=== PATIENT | female | born 1960 | race Caucasian/White ===

== ENCOUNTER → 2017-12-21 10:04 | Outpatient (CLI) | payer OTHER, SELFPAY ==
[2017-12-21 10:39] LABS: Add Manual Diff / Slide Review NO; Basophils Percent Auto 0.7 % (0-2); Eosinophils Percent Auto 0.1 % (2-4); Hematocrit 37.1 % (36-46); Hemoglobin 12.4 g/dL (12.0-16.0); Lymphocytes Percent Auto 20.9 % (25-40); Mean Corpuscular HGB Conc 33.4 % (30-36); Mean Corpuscular Hemoglobin 28.2 PG (26-34); Mean Corpuscular Volume 84.5 fL (80-100); Monocytes Percent Auto 4.8 % (3-14); Neutrophils Absolute Auto 4700 /uL (3000-5900); Neutrophils Percent Auto 73.5 % (50-75); Platelet Count 233 X10^3/uL (150-400); Red Blood Cell Count 4.39 X10^6/uL (4.0-5.2); Red Cell Distribution Width 12.9 % (11.6-14.8); White Blood Cell Count 6.4 X10^3/uL (4.5-11.0)
[2017-12-21 11:00] LABS: Alanine Aminotransferase 25 IU/L (9-52); Albumin 3.9 g/dL (3.5-5.0); Albumin Globulin Ratio 1.5 (1.0-2.8); Alkaline Phosphatase 82 U/L (38-126); Aspartate Aminotransferase 21 IU/L (14-36); BUN Creatinine Ratio 17.1 (6-22); Bilirubin Total 0.2 mg/dL (0.2-1.3); Blood Urea Nitrogen 12 mg/dL (7-17); Calcium 8.7 mg/dL (8.4-10.2); Carbon Dioxide 26 mmol/L (22-32); Chloride 104 mmol/L (98-107); Cholesterol 134 mg/dL (140-199); Estimated Glomerular Filt Rate > 60.0 mL/min (>60); Globulin 2.6 g/dL (1.7-4.1); Glucose 99 mg/dL (70-100); HDL Cholesterol 49 mg/dL (40-60); HEMOLYSIS < 15 (0-50); LDL Cholesterol Calculated 47 mg/dL (<100); Potassium 4.3 mmol/L (3.4-5.1); Sodium 143 mmol/L (137-145); Total Protein 6.5 g/dL (6.3-8.2); Triglycerides 190 mg/dL (35-150)
[2017-12-21 11:47] LABS: TSH w/ Reflex to FT4 1.73 uIU/mL (0.47-4.68)
== END ==
PROVIDERS: Visit Provider Internal Medicine
DX: E78.5 Hyperlipidemia, unspecified (principal); E03.9 Hypothyroidism, unspecified
CPT/HCPCS: 36415; 80053; 80061; 84443; 85025

== ENCOUNTER → 2018-02-13 09:12 | Outpatient (CLI) | payer OTHER, SELFPAY ==
--- NOTE | 2018-02-13 | DI.MG.S_ITS ---
BILATERAL DIGITAL SCREENING MAMMOGRAM 3D/2D WITH CAD: 02/13/2018 CLINICAL: Routine screening. Comparison is made to exams dated: 12/23/2016 mammogram, 12/23/2015 mammogram, and 12/19/2014 mammogram - [facility]. There are scattered fibroglandular elements in both breasts. Current study was also evaluated with a Computer Aided Detection (CAD) system. No significant masses, calcifications, or other findings are seen in either breast. There has been no significant interval change. IMPRESSION: NEGATIVE There is no mammographic evidence of malignancy. A 1 year screening mammogram is recommended. NOTE: For mammograms, a report in lay terms will be sent to the patient. Approximately 15% of breast malignancies will not be visualized mammographically. In the management of a palpable breast mass, a negative mammogram must not discourage biopsy of a clinically suspicious lesion. Electronically Signed By: Meeta ann/loan:02/14/2018 12:51:36 letter sent: Normal Exam ACR BI-RADS Category 1: Negative 3341F
== END ==
PROVIDERS: PCP Family Medicine; Visit Provider Family Medicine
DX: Z12.31 Encounter for screening mammogram for malignant neoplasm of breast (principal)
CPT/HCPCS: 77063; 77067

== ENCOUNTER → 2018-04-13 11:35 | Outpatient (CLI) | payer OTHER, SELFPAY ==
--- NOTE | 2018-04-13 11:39 | DI.RAD.S_ITS ---
PROCEDURE: XR LUMBAR SPINE 2-3V INDICATIONS: Back and right hip pain TECHNIQUE: 3 views of the lumbar spine were acquired. COMPARISON: None. FINDINGS: Bones: 5 cur-[id number]-[id number] vertebrae are present. There is normal bony alignment. No acute vertebral body compression fractures. No suspicious bony lesions. Multilevel degenerative changes seen in the mid and lower lumbar spine and thoracolumbar junction. Findings are most pronounced at L4-5 and L5-S1 with right worse than left lower lumbar facet arthropathy. Soft tissues: Cholecystectomy clips are noted in the right upper abdomen. Overlying bowel gas pattern is normal. No suspicious soft tissue calcifications. IMPRESSION: Multilevel lumbar spondylosis most pronounced in the mid and lower lumbar spine with right greater than left facet arthropathy. Dictated by: Dave York M.D. on 04/13/2018 at 12:22 Approved by: Dave York M.D. on 04/13/2018 at 12:24
--- NOTE | 2018-04-13 11:39 | DI.RAD.S_ITS ---
PROCEDURE: XR HIP W PEL IF DONE RT 2V INDICATIONS: Back and right hip pain TECHNIQUE: 2 views of the hip were acquired. COMPARISON: None. FINDINGS: Bones: No fractures or dislocations. No suspicious bony lesions. The visualized pelvic ring appears intact. Soft tissues: No suspicious soft tissue calcifications or masses. IMPRESSION: Right hip without radiographic abnormalities. Dictated by: Dave York M.D. on 04/13/2018 at 12:21 Approved by: Dave York M.D. on 04/13/2018 at 12:21
== END ==
PROVIDERS: Family Provider Student in an Organized Health Care Education/Training Program; PCP Student in an Organized Health Care Education/Training Program; Visit Provider Student in an Organized Health Care Education/Training Program
DX: M54.5 Low back pain (principal); M25.551 Pain in right hip; M47.816 Spondylosis without myelopathy or radiculopathy, lumbar region; M47.817 Spondylosis without myelopathy or radiculopathy, lumbosacral region; M79.7 Fibromyalgia
CPT/HCPCS: 72100; 73502

== ENCOUNTER → 2018-08-28 11:16 | Outpatient (CLI) | payer OTHER, SELFPAY ==
--- NOTE | 2018-08-28 11:17 | DI.MRI.S_ITS ---
PROCEDURE: MR KNEE LT WO CON INDICATIONS: Left knee pain; possible torn meniscus TECHNIQUE: Noncontrast sagittal PD fast spin echo and T2 fast spin echo with fat saturation, sagittal 3-D FLASH with fat saturation; coronal T1 spin echo and PD fast spin echo with fat saturation, and axial PD fast spin echo with fat saturation through the knee. COMPARISON: None. FINDINGS: Image quality: Excellent. Menisci: Lateral meniscus appears intact. Blunted appearance of the free margin of the medial meniscal body for example image 18 series 11 Cruciate ligaments: The anterior and posterior cruciate ligaments appear intact. Medial structures: The medial collateral ligament appears intact. However, there is adjacent soft tissue edema raising the possibility of low-grade sprain. The posterior oblique ligament, semimembranosus tendon insertions, oblique popliteal ligament, and meniscocapsular junction appear intact. Visualized portions of the pes anserinus tendons appear normal. No abnormal bursal fluid. Lateral structures: The lateral collateral ligament, long and short heads of the biceps femoris tendon appear intact. The popliteus tendon appears normal; the popliteofibular ligament appears intact. The posterosuperior and anteroinferior popliteomeniscal fascicles appear intact. The arcuate and fabellofibular ligaments appear intact, on either side of the lateral inferior geniculate artery. Iliotibial band appears normal. Anterior structures: Prepatellar and superficial infrapatellar subcutaneous edema/fluid. The quadriceps and patellar tendons appear intact. Patellar alignment is normal. No femoral trochlear dysplasia or ventral trochlear prominence. No edema in the infrapatellar fat pad. Bones and cartilage: No focal marrow contusion or discrete low signal fracture line. Within the medial compartment, diffuse partial-thickness loss of the femoral and tibial articular cartilage. Within the lateral compartment, no focal articular cartilage defect. Within the patellofemoral compartment, no focal articular cartilage defect Joint space: Small joint effusion. Gao's cyst, measuring approximately 6 cm in the cephalocaudad dimension, and may be ruptured with adjacent infiltrative free fluid. IMPRESSION: Blunting of the medial meniscal body free margin. Possible low-grade sprain of the medial collateral ligament. Degenerative joint disease, most pronounced involving the medial compartment. Partially ruptured Gao cyst. Prepatellar and superficial infrapatellar subcutaneous edema/fluid. Dictated by: Rudy Escobar M.D. on 08/28/2018 at 13:54 Approved by: Rudy Escobar M.D. on 08/28/2018 at 14:00
== END ==
PROVIDERS: PCP Student in an Organized Health Care Education/Training Program; Visit Provider Student in an Organized Health Care Education/Training Program
DX: M25.562 Pain in left knee (principal); M17.12 Unilateral primary osteoarthritis, left knee; M66.0 Rupture of popliteal cyst; R60.0 Localized edema
CPT/HCPCS: 73721

== ENCOUNTER → 2019-02-15 10:43 | Outpatient (CLI) | payer OTHER, SELFPAY ==
[2019-02-15 13:21] LABS: TSH w/ Reflex to FT4 1.65 uIU/mL (0.47-4.68)
== END ==
PROVIDERS: PCP Student in an Organized Health Care Education/Training Program; Visit Provider Student in an Organized Health Care Education/Training Program
DX: E03.9 Hypothyroidism, unspecified (principal)
CPT/HCPCS: 36415; 84443

== ENCOUNTER → 2019-02-19 09:12 | Outpatient (CLI) | payer OTHER, SELFPAY ==
--- NOTE | 2019-02-19 09:13 | DI.MG.S_ITS ---
BILATERAL DIGITAL SCREENING MAMMOGRAM 3D/2D WITH CAD: 02/19/2019 CLINICAL: Routine screening. Comparison is made to exams dated: 02/13/2018 mammogram, 12/23/2016 mammogram, 12/23/2015 mammogram, 12/19/2014 mammogram, and 10/31/2013 mammogram - [facility]. There are scattered fibroglandular elements in both breasts. Current study was also evaluated with a Computer Aided Detection (CAD) system. No significant masses, calcifications, or other findings are seen in either breast. There has been no significant interval change. IMPRESSION: NEGATIVE There is no mammographic evidence of malignancy. A 1 year screening mammogram is recommended. This exam was interpreted at Station ID: [id number]. NOTE: For mammograms, a report in lay terms will be sent to the patient. Approximately 15% of breast malignancies will not be visualized mammographically. In the management of a palpable breast mass, a negative mammogram must not discourage biopsy of a clinically suspicious lesion. Electronically Signed By: Mauricio herrera/loan:02/19/2019 10:43:13 letter sent: Normal Exam ACR BI-RADS Category 1: Negative 3341F
== END ==
PROVIDERS: PCP Student in an Organized Health Care Education/Training Program; Visit Provider Student in an Organized Health Care Education/Training Program
DX: Z12.31 Encounter for screening mammogram for malignant neoplasm of breast (principal)
CPT/HCPCS: 77063; 77067

== ENCOUNTER → 2020-02-26 16:14 | Outpatient (CLI) | payer OTHER, SELFPAY ==
--- NOTE | 2020-02-26 | DI.MG.S_ITS ---
BILATERAL DIGITAL SCREENING MAMMOGRAM 3D/2D WITH CAD: 02/26/2020 CLINICAL: Routine screening. Comparison is made to exams dated: 02/19/2019 mammogram, 02/13/2018 mammogram, and 12/23/2016 mammogram - [facility]. There are scattered fibroglandular elements in both breasts. Current study was also evaluated with a Computer Aided Detection (CAD) system. No significant masses, calcifications, or other findings are seen in either breast. There has been no significant interval change. IMPRESSION: NEGATIVE There is no mammographic evidence of malignancy. A 1 year screening mammogram is recommended. This exam was interpreted at Station ID: [id number]. NOTE: For mammograms, a report in lay terms will be sent to the patient. Approximately 15% of breast malignancies will not be visualized mammographically. In the management of a palpable breast mass, a negative mammogram must not discourage biopsy of a clinically suspicious lesion. Electronically Signed By: Meeta ann/loan:03/03/2020 14:19:36 letter sent: Normal Exam ACR BI-RADS Category 1: Negative 3341F
== END ==
PROVIDERS: PCP Student in an Organized Health Care Education/Training Program; Referring Provider Student in an Organized Health Care Education/Training Program; Visit Provider Student in an Organized Health Care Education/Training Program
DX: Z12.31 Encounter for screening mammogram for malignant neoplasm of breast (principal)
CPT/HCPCS: 77063; 77067

== ENCOUNTER → 2020-03-03 07:02 | Outpatient (CLI) | payer OTHER, SELFPAY ==
--- NOTE | 2020-03-03 07:04 | DI.US.S_ITS ---
PROCEDURE: US ABDOMEN LIMITED INDICATIONS: RIGHT UPPER QUADRANT PAIN TECHNIQUE: Real-time focused scanning was performed of the abdomen, with image documentation. COMPARISON: [facility], US, ABDOMEN COMPLETE, 09/24/2010, 8:40. FINDINGS: The liver is normal in size and demonstrates no focal lesions. The gallbladder has been removed. There is no biliary dilatation, the common bile duct measures 6 mm. No significant pancreatic abnormality is seen on these images. IMPRESSION: Status post cholecystectomy, without biliary dilatation. Dictated by: Juan Jose Mcbride M.D. on 03/03/2020 at 12:11 Approved by: Juan Jose Mcbride M.D. on 03/03/2020 at 12:12
== END ==
PROVIDERS: PCP Student in an Organized Health Care Education/Training Program; Referring Provider Student in an Organized Health Care Education/Training Program; Visit Provider Student in an Organized Health Care Education/Training Program
DX: R10.11 Right upper quadrant pain (principal); Z90.49 Acquired absence of other specified parts of digestive tract
CPT/HCPCS: 76705

== ENCOUNTER → 2020-03-09 06:51 | Outpatient (CLI) | payer OTHER, SELFPAY ==
[2020-03-09 09:01] LABS: BUN Creatinine Ratio 18.3 (6-22); Blood Urea Nitrogen 11 mg/dL (7-17); Calcium 8.6 mg/dL (8.4-10.2); Carbon Dioxide 30 mmol/L (22-32); Chloride 105 mmol/L (98-107); Estimated Glomerular Filt Rate > 60.0 mL/min (>60); Glucose 97 mg/dL (70-100); HEMOLYSIS < 15 (0-50); Potassium 4.3 mmol/L (3.4-5.1); Sodium 136 mmol/L (137-145)
== END ==
PROVIDERS: PCP Student in an Organized Health Care Education/Training Program; Referring Provider Student in an Organized Health Care Education/Training Program; Visit Provider Nurse Practitioner
DX: R10.11 Right upper quadrant pain (principal)
CPT/HCPCS: 36415; 80048

== ENCOUNTER → 2020-03-10 07:50 | Outpatient (CLI) | payer OTHER, SELFPAY ==
--- NOTE | 2020-03-10 07:52 | DI.CT.S_ITS ---
PROCEDURE: CT ABDOMEN W CON INDICATIONS: Abdominal pain TECHNIQUE: After the administration of oral and intravenous contrast, 5 mm thick sections acquired from the diaphragms to the iliac crests. 5 mm thick coronal and sagittal reformats were acquired. For radiation dose reduction, the following was used: automated exposure control, adjustment of mA and/or kV according to patient size. COMPARISON: [facility], CT, ABDOMEN/PELVIS WITH CONTRAST, 10/18/2012, 7:52. FINDINGS: Image quality: Excellent. Lung bases: Lung bases are clear. Heart size is normal. Solid organs: Liver is normal in size and enhancement. Gallbladder is surgically absent.. Biliary system is non dilated. Pancreas enhances normally. Spleen is normal in size and enhancement. No adrenal nodules. There is a small homogeneously enhancing exophytic mass off the anterior medial aspect of the middle pole of the left kidney, measuring 1.8 cm. This is very slowly growing. Previously, there was a 1.3 cm cystic lesion in this location. There is no hydronephrosis. The right kidney is unremarkable. Peritoneum and bowel: Contrast enhanced bowel loops appear normal in caliber. No free fluid or air. Nodes and vessels: No retroperitoneal or mesenteric adenopathy by size criteria. Aorta and inferior vena cava are normal in size. Bones: No suspicious bony lesions. No vertebral body compression fractures. Miscellaneous: No ventral hernias. IMPRESSION: 1. Incidental identification of a probable 1.8 cm renal cell carcinoma involving the left kidney. 2. No evidence of metastatic disease. 3. No evidence of acute abdominal process. Recommend urological consultation. Comment: Critical finding to be communicated to JENNIFER Love's office. Dictated by: Vaibhav Dick M.D. on 03/10/2020 at 10:00 Approved by: Vaibhav Dick M.D. on 03/10/2020 at 10:14
== END ==
PROVIDERS: PCP Student in an Organized Health Care Education/Training Program; Referring Provider Nurse Practitioner; Visit Provider Nurse Practitioner
DX: R10.11 Right upper quadrant pain (principal); N28.89 Other specified disorders of kidney and ureter; Z90.49 Acquired absence of other specified parts of digestive tract
CPT/HCPCS: 74160; Q9967

== ENCOUNTER → 2020-03-26 06:44 | Outpatient (CLI) | payer OTHER, SELFPAY ==
--- NOTE | 2020-03-26 09:49 | DI.CT.S_ITS ---
PROCEDURE: CT ABDOMEN WO/W CON INDICATIONS: RENAL MASS TECHNIQUE: Optional 5 mm thick noncontrast images acquired from the diaphragm to the iliac crests. After the administration of intravenous contrast, 5 mm thick images again acquired from the diaphragm to the iliac crests in the arterial and urographic phases. 5 mm thick coronal and sagittal reformats were then acquired. For radiation dose reduction, the following was used: automated exposure control, adjustment of mA and/or kV according to patient size. COMPARISON: [facility], CT, ABDOMEN/PELVIS WITH CONTRAST, 10/18/2012, 7:52. [facility], CT, CT ABDOMEN W CON, 03/10/2020, 8:36. FINDINGS: Image quality: Lung bases: Lung bases are clear. Heart size is normal. Genitourinary: A partially exophytic mass arises from the medial aspect of the left renal midpole and measures about 2.5 x 1.6 x 1.7 cm. It demonstrates homogeneous enhancement and washout, differentiating at from parenchyma. Kidneys otherwise are normal without stones or hydronephrosis. No adjacent retroperitoneal lymph nodes or filling defects in the left renal vasculature. The mass is in close proximity to the main left renal artery. Other solid organs: Liver is normal in size and enhancement. Gallbladder is surgically absent . Biliary system is non dilated. Pancreas enhances normally. Spleen is normal in size and enhancement. No adrenal nodules. Peritoneum and bowel: Unenhanced bowel loops are normal in wall thickness and caliber. No free fluid or air. Nodes and vessels: No retroperitoneal or mesenteric adenopathy by size criteria. Aorta and inferior vena cava are normal in caliber. Bones: No suspicious bony lesions. Severe degenerative disc and endplate changes at L4-5. No vertebral body compression fractures. Miscellaneous: Tiny fat containing umbilical hernia. IMPRESSION: 1. 2.5 cm Solid renal mass, probable renal cell carcinoma versus oncocytoma arises from the medial left kidney. Partial nephrectomy versus ablation is recommended. Note given to the close proximity of the left renal artery. 2. No adenopathy. Dictated by: Sophia Babb M.D. on 03/26/2020 at 9:55 Approved by: Sophia Babb M.D. on 03/26/2020 at 10:11
== END ==
PROVIDERS: PCP Student in an Organized Health Care Education/Training Program; Referring Provider Student in an Organized Health Care Education/Training Program; Visit Provider Student in an Organized Health Care Education/Training Program
DX: C64.2 Malignant neoplasm of left kidney, except renal pelvis (principal); N28.89 Other specified disorders of kidney and ureter
CPT/HCPCS: 74170; Q9967

== ENCOUNTER → 2020-05-14 09:55 | Outpatient (CLI) | payer OTHER, SELFPAY ==
--- NOTE | 2020-05-14 09:57 | DI.RAD.S_ITS ---
PROCEDURE: XR HIP W PEL IF DONE RT 2V INDICATIONS: Right hip pain w/o injury TECHNIQUE: AP pelvis with lateral view(s) of the right hip(s). COMPARISON: [facility], , XR HIP W PEL IF DONE RT 2V, 04/13/2018, 11:41. FINDINGS: Bones: No fractures or dislocations. Mild right hip degenerative arthritis. Pelvic ring appears intact. No suspicious bony lesions. Soft tissues: The visualized bowel gas pattern is normal. No suspicious soft tissue calcifications. IMPRESSION: Mild right hip degenerative arthritis. No evidence acute bony abnormality of the pelvis and right hip. If clinical suspicion and/or symptoms persist, further assessment with repeat plain films, or advanced imaging (e.g., CT, MRI, or bone scan) may be helpful for further assessment. Dictated by: Vaibhav Dick M.D. on 05/14/2020 at 11:27 Approved by: Vaibhav iDck M.D. on 05/14/2020 at 11:28
== END ==
PROVIDERS: PCP Student in an Organized Health Care Education/Training Program; Referring Provider Student in an Organized Health Care Education/Training Program; Visit Provider Student in an Organized Health Care Education/Training Program
DX: M16.11 Unilateral primary osteoarthritis, right hip (principal)
CPT/HCPCS: 73502

== ENCOUNTER → 2020-05-26 09:12 | Outpatient (CLI) | payer OTHER, SELFPAY ==
[2020-05-26 10:26] LABS: Alanine Aminotransferase 13 IU/L (<35); Albumin 3.7 g/dL (3.5-5.0); Albumin Globulin Ratio 1.5 (1.0-2.8); Alkaline Phosphatase 96 U/L (38-126); Amylase 37 U/L (30-110); Aspartate Aminotransferase 13 IU/L (14-36); Bilirubin Total 0.1 mg/dL (0.2-1.3); Globulin 2.5 g/dL (1.7-4.1); HEMOLYSIS < 15 (0-50); Lipase 121 U/L (23-300); Total Protein 6.2 g/dL (6.3-8.2)
== END ==
PROVIDERS: PCP Student in an Organized Health Care Education/Training Program; Referring Provider Student in an Organized Health Care Education/Training Program; Visit Provider Student in an Organized Health Care Education/Training Program
DX: R10.11 Right upper quadrant pain (principal)
CPT/HCPCS: 36415; 80076; 82150; 83690

== ENCOUNTER → 2020-06-05 11:28 | Outpatient (CLI) | payer OTHER, SELFPAY ==
--- NOTE | 2020-06-05 | DI.RAD.S_ITS ---
PROCEDURE: XR CHEST 2V INDICATIONS: renal mass TECHNIQUE: 2 views of the chest were acquired. COMPARISON: [facility], CR, XR HIP W PEL IF DONE RT 2V, 05/14/2020, 10:07. [facility], CT, CT ABDOMEN W CON, 03/10/2020, 8:36. [facility], CT, CT ABDOMEN WO/W CON, 03/26/2020, 6:55. [facility], CR, CHEST 1 VIEW, 09/05/2012, 15:30. FINDINGS: Surgical changes and devices: None. Lungs and pleura: Lungs are clear. No pleural effusions or pneumothorax. Mediastinum: Mediastinal contours are normal. Heart size is normal. Bones and chest wall: No suspicious bony abnormalities. Soft tissues appear unremarkable. IMPRESSION: No abnormality is seen, no sign of metastatic disease. Dictated by: Adan Antonio M.D. on 06/05/2020 at 12:50 Approved by: Adan Antonio M.D. on 06/05/2020 at 12:52
[2020-06-05 12:14] LABS: Add Manual Diff / Slide Review NO; Basophils Absolute Auto 100 /uL (0-100); Basophils Percent Auto 0.9 % (0-2); Eosinophils Absolute Auto 0 /uL (0-450); Eosinophils Percent Auto 0.1 % (2-4); Hematocrit 36.7 % (36-46); Hemoglobin 12.1 g/dL (12.0-16.0); Lymphocytes Absolute Auto 1700 /uL (1100-4500); Lymphocytes Percent Auto 22.2 % (25-40); Mean Corpuscular HGB Conc 33.1 % (30-36); Mean Corpuscular Hemoglobin 27.1 PG (26-34); Monocytes Absolute Auto 400 /uL (0-900); Monocytes Percent Auto 4.8 % (3-14); Neutrophils Absolute Auto 5500 /uL (1500-7000); Platelet Count 236 X10^3/uL (150-400); Red Blood Cell Count 4.47 X10^6/uL (4.0-5.2); Red Cell Distribution Width 13.8 % (11.6-14.8); White Blood Cell Count 7.7 X10^3/uL (4.5-11.0)
[2020-06-05 12:30] LABS: Prothrombin Time 11.7 SECONDS (10.1-12.7)
[2020-06-05 12:33] LABS: PTT Partial Thromboplastin Tim 31 SECONDS (26.4-36.2)
[2020-06-05 12:42] LABS: Alanine Aminotransferase 16 IU/L (<35); Albumin 3.9 g/dL (3.5-5.0); Albumin Globulin Ratio 1.6 (1.0-2.8); Alkaline Phosphatase 99 U/L (38-126); Aspartate Aminotransferase 17 IU/L (14-36); BUN Creatinine Ratio 22.2 (6-22); Blood Urea Nitrogen 14 mg/dL (7-17); Calcium 9.1 mg/dL (8.4-10.2); Carbon Dioxide 26 mmol/L (22-32); Chloride 105 mmol/L (98-107); Estimated Glomerular Filt Rate > 60.0 mL/min (>60); Globulin 2.4 g/dL (1.7-4.1); Glucose 103 mg/dL (70-100); HEMOLYSIS < 15 (0-50); Potassium 4.4 mmol/L (3.4-5.1); Sodium 137 mmol/L (137-145); Total Protein 6.3 g/dL (6.3-8.2)
[2020-06-05 12:46] LABS: Bilirubin Total < 0.1 mg/dL (0.2-1.3)
== END ==
PROVIDERS: PCP Student in an Organized Health Care Education/Training Program; Referring Provider Urology; Visit Provider Urology
DX: Z01.818 Encounter for other preprocedural examination (principal); N28.89 Other specified disorders of kidney and ureter
CPT/HCPCS: 36415; 71046; 80053; 85025; 85610; 85730; 93005

== ENCOUNTER → 2020-06-09 09:13 | Outpatient (CLI) | payer OTHER, SELFPAY ==
--- NOTE | 2020-06-09 | DI.NM.S_ITS ---
PROCEDURE: NM RENAL FLOW AND FUNCTION RADIOPHARMACEUTICAL: 10.4 mCi Tc-99m MAG3 IV. INDICATIONS: OTHER SPECIFIED DISORDER OF KIDNEY AND URETER TECHNIQUE: The patient was hydrated orally before the examination was begun. After intravenous administration of Tc-99m MAG3, posterior abdominal radionuclide angiogram and sequential (1 minute per frame) renal images were obtained. A time-activity curve for each kidney was generated and analyzed. COMPARISON: [facility], US, US ABDOMEN LIMITED, 03/03/2020, 7:16. [facility], CT, CT ABDOMEN WO/W CON, 03/26/2020, 6:55. FINDINGS: Perfusion: There is normal vascular perfusion to both kidneys. Morphology: Kidneys are normal in shape and size. There are no central photopenic regions to suggest dilated collecting systems. The ureters and bladder are visualized, and appear normal in morphology. Function: Both kidneys demonstrate normal cortical tracer uptake, with jfvo-ju-idlg activity ranging from 3 to 5 minutes. The right kidney contributes 58% of total renal function. The left kidney contributes 42 % of total renal function. There is normal tracer excretion by both kidneys, and subsequent clearance of activity from both renal collecting systems. IMPRESSION: 1. Normal radionuclide renogram. 2. Right kidney contributes 58% of total renal function and left kidney contributes 42% of total renal function. Dictated by: Porfirio Doyle M.D. on 06/09/2020 at 12:31 Approved by: Porfirio Doyle M.D. on 06/09/2020 at 12:52
== END ==
PROVIDERS: PCP Student in an Organized Health Care Education/Training Program; Referring Provider Urology; Visit Provider Urology
DX: N28.89 Other specified disorders of kidney and ureter (principal)
CPT/HCPCS: 78708; A9562

== ENCOUNTER → 2020-06-22 09:12 | Outpatient (CLI) | payer OTHER, SELFPAY ==
[2020-06-22 12:09] LABS: COVID19 -Nasal RAPID Negative (Negative)
== END ==
PROVIDERS: PCP Student in an Organized Health Care Education/Training Program; Visit Provider Physician Assistant
DX: Z20.822 Contact with and (suspected) exposure to COVID-19 (principal)
CPT/HCPCS: 87635

== ENCOUNTER → 2020-09-02 07:39 | Outpatient (CLI) | payer OTHER, SELFPAY ==
--- NOTE | 2020-09-02 | DI.NM.S_ITS ---
PROCEDURE: GA RENAL FLOW AND FUNCTION RADIOPHARMACEUTICAL: 10.5 mCi Tc-99m MAG3 IV. INDICATIONS: Other specified disorders of kidney and ureter TECHNIQUE: The patient was hydrated orally before the examination was begun. After intravenous administration of Tc-99m MAG3, posterior abdominal radionuclide angiogram and sequential (1 minute per frame) renal images were obtained. A time-activity curve for each kidney was generated and analyzed. COMPARISON: [place], [place], [place] RENAL FLOW AND FUNCTION, 06/09/2020, 9:36. FINDINGS: Perfusion: There is normal vascular perfusion to both kidneys. Morphology: Kidneys are normal in shape and size. There are no central photopenic regions to suggest dilated collecting systems. The ureters and bladder are visualized, and appear normal in morphology. Function: Both kidneys demonstrate normal cortical tracer uptake, with aopo-qu-zrbe activity ranging from 3 to 5 minutes. The right kidney contributes 55 % of total renal function. The left kidney contributes 45 % of total renal function. This is compared to 58% and 42% on prior exam. There is normal tracer excretion by both kidneys, and subsequent clearance of activity from both renal collecting systems. IMPRESSION: 1. Normal radionuclide renogram. 2. Right kidney contributes 55% of total renal function and left kidney contributes 45% of total renal function. Dictated by: Gail Andrews M.D. on 09/02/2020 at 16:54 Approved by: Gail Andrews M.D. on 09/02/2020 at 16:56
--- NOTE | 2020-09-02 07:41 | DI.RAD.S_ITS ---
PROCEDURE: XR LUMBAR SPINE MIN 4V INDICATIONS: lumbar hnp TECHNIQUE: 5 views of the lumbar spine were acquired, including bilateral oblique views. COMPARISON: [facility], CT, CT ABDOMEN WO/W CON, 03/26/2020, 6:55. CT, ABDOMEN/PELVIS WITH CONTRAST, 10/18/2012, 7:52. [facility], CR, XR LUMBAR SPINE 2-3V, 04/13/2018, 11:41. FINDINGS: Bones: 5 nonrib-bearing vertebrae are present. Minimal scoliosis. L4-L5 and L5-S1 facet joint hypertrophy. There is mild bony neural foraminal narrowing bilaterally at these levels. There is intervertebral body height loss at L4-L5. No vertebral body compression fractures. No suspicious bony lesions. Soft tissues: Overlying bowel gas pattern is normal. No suspicious soft tissue calcifications. Cholecystectomy clips. Oblique images: No pars defects. IMPRESSION: Intervertebral body height loss at L4-L5 similar to the prior exams. Ybqp-on-lmbjqugw degenerative change. L4-L5 and L5-S1 bony neural foraminal narrowing. Dictated by: Mauricio Lizama M.D. on 09/02/2020 at 9:02 Approved by: Mauricio Lizama M.D. on 09/02/2020 at 9:06
== END ==
PROVIDERS: PCP Student in an Organized Health Care Education/Training Program; Referring Provider Urology; Visit Provider Urology
DX: N28.89 Other specified disorders of kidney and ureter (principal); M54.5 Low back pain
CPT/HCPCS: 72110; 78708; A9562

== ENCOUNTER → 2020-09-08 15:34 | Outpatient (CLI) | payer OTHER, SELFPAY ==
[2020-09-08 15:58] LABS: COVID19 -Nasal RAPID Negative (Negative)
== END ==
PROVIDERS: PCP Student in an Organized Health Care Education/Training Program; Visit Provider Obstetrics & Gynecology
DX: Z01.812 Encounter for preprocedural laboratory examination (principal); Z20.822 Contact with and (suspected) exposure to COVID-19
CPT/HCPCS: 87635

== ENCOUNTER 2020-09-10 08:06 | Observation (INO) | payer OTHER, SELFPAY ==
[2020-09-08 08:12] VITALS: BMI 35.9
[2020-09-10] VITALS (13 sets, daily range): BP systolic 95–154; BP diastolic 46–83; PULSE 62–80; RESP 12–18; TEMP 36–36.7; O2SAT 96–100; BMI 34.4
[2020-09-10] MEDS: LACTATED RINGERS 1,000 ML 100 ML IV ×4 (07:52→23:39)
--- NOTE | 2020-09-10 08:52 | PM.PREOP ---
Pre-operative Note COVID-19 COVID-19 status: Negative Result date/Date tested (Pos, Neg/Pending): 09/08/20 Interval Note History & Physical reviewed/Exam performed by Physician: Yes Changes to H&P: No H&P completed within 30 days and has changed as indicated here:: 09/08/20
[2020-09-10] MEDS: CEFAZOLIN 1 GM VIAL 2 GM IV (09:25)
--- NOTE | 2020-09-10 09:54 | SUR.OPER ---
Lithotomy on padded OR bed, head on pillow, arms secured on padded arm boards at <90 degrees abduction. Legs secured in padded yellow fins stirrups.
[2020-09-10] MEDS: BUPIVACAINE 0.25% W/ EPI (PF) 10 ML VIAL 60 ML INJ (10:02)
--- NOTE | 2020-09-10 11:25 | P.OP_ITS ---
Operative Date/Time/Diagnoses Date of procedure: 09/10/20 Time of procedure: 11:25 Pre-op diagnosis: Symptomatic cystocele and rectocele Stress urinary incontinence Post-op diagnosis: same Procedure & Clinicians Procedure: Procedures Operation Date: 09/10/20 08:15 Actual Procedures Side Surgeon p Anterior/Posterior repair, Isa Young MD s TVT w. cystoscopy Isa Young MD Indications: Symptomatic cystocele and rectocele Stress urinary incontinence Surgeon: Isa Young [facility] House Supervisor: Montse Aparicio Anesthesia Type: General and Local Operative Notes Findings: Third-degree rectocele Second-degree cystocele Increased urethrovesical angle with Valsalva Closure Type: primary Specimen(s): none Applied: catheter (To continuous drainage) Estimated blood loss (mL): 75 Blood products transfused: none Procedure in detail: The patient was taken to the operating room where she was placed in the dorsal supine position. After adequate general endotracheal anesthesia was achieved, she was placed in the dorsal lithotomy position, and prepped and draped in the usual sterile fashion. A timeout was performed. Allis clamps were placed at the superior and inferior edge of the cystocele. 6 mL of half percent Marcaine with epinephrine were injected and an incision was made with a #10 blade between the Allis clamps. The mucosa was undermined using the Metzenbaum scissors and wide Allis clamps were placed at the edges of the mucosa. The mucosa was dissected off the underlying fascia using an open moistened Ray-Meme and a #10 blade. The fascia was reapproximated with 0 Vicryl with a series of horizontal mattress sutures. The excess vaginal mucosa was excised. The mucosa was closed using simple interrupted sutures with 2-0 Vicryl including the underlying fascia to close the space. The weighted speculum was removed from the vagina. Allis clamps were placed at the mucocutaneous junction at the introitus. 6 mL of half percent Marcaine with epinephrine were injected. An incision was made with a #10 blade between the 2 Allis clamps, and a triangular piece of skin and underlying subcutaneous tissue was removed. Allis clamps were placed in the midline of the rectocele. 10 mL of half percent Marcaine with epinephrine were injected submucosally. The mucosa was undermined using the Metzenbaum scissors and the mucosa incised in the midline, moving the wide Allis clamps to the mucosal edges. The underlying fascia was dissected off of th mucosa using an open moistened Ray-Meme and a #10 blade. The fascia was reapproximated using 0 Vicryl with a series of horizontal mattress sutures. The excess vaginal mucosa was excised. The mucosa was closed using a series of simple interrupted sutures with 2-0 Vicryl including the underlying fascia to close the space. On the perineum 0 Vicryl was used to reapproximate the levator muscle. The subcutaneous layer was closed with 2-0 Vicryl. The skin was closed with 3-0 chromic in a subcuticular fashion. Hemostasis was achieved. The bladder was empty. 100 mL of the dilute quarter percent Marcaine with epinephrine were placed into the space of Retzius behind the pubic symphysis. A weighted speculum was placed into the vagina. 2 Allis clamps were placed lateral to the urethral meatus approximately 1 cm distal. 3 mL of a dilute quarter percent Marcaine were placed submucosally. A 1 cm incision was made 1 cm away from the urethral meatus. This was dissected out laterally with the Metzenbaum scissors. A rigid catheter was placed into the bladder. With the bladder neck retracted away from the patient's right side 10 mL of the dilute local were placed aiming towards the patient's right shoulder up behind the pubic symphysis. This was repeated on the patient's left side, with the bladder neck retracted away from the patient's left side. After the TVT was loaded and with the bladder neck retracted away from the patient's right side the TVT was directed towards the patient's shoulder on the right side, perforating the urogenital diaphragm, and then directed up behind the pubic symphysis and the introducer came out approximately 2 cm lateral to the midline on the left side. A small 3 mm enrique in the skin was made and the introducer was brought up and grasped with a [place]. This was repeated on the patient's left side with the bladder neck retracted away from the patient's left side. The rigid portion of the catheter was removed. The bladder was filled with 240 mL of sterile saline. A cystoscopy was performed and there was no TVT were introducer visible in the bladder. The to introducers were pulled up with care not to over tighten the TVT. The patient was made to cough and initially there was a spurt of fluid from the urethral meatus. The TVT was pulled slightly. A second cough produced no leakage. The TVT was cut below the skin edge, with care not to over tighten. Ragsdale scissors were placed between the TVT and urethra to prevent tension. The mucosa was closed with 3-0 Vicryl with a running interlocking suture. Hemostasis was achieved. The TVT incisions were closed with Dermabond glue. A Betadine moistened vaginal packing was placed into the vagina. The catheter was hooked to a Burrell bag. Sponge, lap, and instrument count were correct x-2. The patient tolerated the procedure well, was taken to PACU in stable condition. Complications: none Post-operative Condition: stable Disposition: PACU Plan for aftercare: To acute care after recovery
[2020-09-10] MEDS: OXYCODONE IR 5 MG TABLET PO (13:05)
[2020-09-10] MEDS: DULOXETINE 30 MG CAPSULE 60 MG PO (13:05)
[2020-09-10] MEDS: NAPROXEN 250 MG TABLET 500 MG PO (17:09)
[2020-09-10] MEDS: PANTOPRAZOLE DR 40 MG TABLET PO (20:05)
[2020-09-10] MEDS: ATORVASTATIN 20 MG TABLET 40 MG PO (20:05)
[2020-09-10] MEDS: METOPROLOL ER 50 MG TABLET 100 MG PO (20:05)
[2020-09-10] MEDS: DOCUSATE 250 MG CAPSULE PO (20:05)
[2020-09-10] MEDS: carBAMazepine 200 MG TABLET PO (20:05)
[2020-09-10] MEDS: ACETAMINOPHEN 325 MG TABLET 650 MG PO (20:10)
--- NOTE | 2020-09-11 00:32 | PC.NURSE ---
Addendum entered by Jenny Grijalva R.N. 09/11/20 06:55: Patient voided 250cc w/PVR of 70cc Addendum entered by Jenny Grijalva R.N. 09/11/20 06:02: packing and catheter d'cd at 0600. Moderate amount brown/red drainage on peripads; changed. Instructed in sx/prevention of UTI Original Note: patient is alert and oriented but drowsy; offers minimal conversation. Breath sounds CTA with RA sat of 97%. HRR. Denies nausea. BT present and abdomen is soft; states she is passing flatus. Indwelling catheter is patent; urine is clear yellow. Able to move self in bed and evening RN reports patient up ambulating in halls without problem. Lap sites intact. Denies pain. Refusing SCD's so reminded to ankle wave. Fall risk score is low.
[2020-09-11 03:48] VITALS: BP 143/74; PULSE 63; RESP 16; TEMP 36.7; O2SAT 95
[2020-09-11] MEDS: LEVOTHYROXINE 125 MCG TABLET PO (05:30)
[2020-09-11 05:50] LABS: Add Manual Diff / Slide Review NO; Basophils Absolute Auto 100 /uL (0-100); Basophils Percent Auto 0.6 % (0-2); Eosinophils Absolute Auto 0 /uL (0-450); Eosinophils Percent Auto 0.1 % (2-4); Hematocrit 34.5 % (36-46); Hemoglobin 11.3 g/dL (12.0-16.0); Lymphocytes Absolute Auto 2900 /uL (1100-4500); Lymphocytes Percent Auto 22.7 % (25-40); Mean Corpuscular HGB Conc 32.7 % (30-36); Mean Corpuscular Volume 82.4 fL (80-100); Monocytes Absolute Auto 800 /uL (0-900); Neutrophils Absolute Auto 9200 /uL (1500-7000); Neutrophils Percent Auto 70.6 % (50-75); Platelet Count 270 X10^3/uL (150-400); Red Blood Cell Count 4.19 X10^6/uL (4.0-5.2); Red Cell Distribution Width 13.7 % (11.6-14.8)
[2020-09-11] MEDS: carBAMazepine 200 MG TABLET PO (08:08)
[2020-09-11] MEDS: NAPROXEN 250 MG TABLET 500 MG PO (08:08)
[2020-09-11] MEDS: ACYCLOVIR 400 MG TABLET PO (08:09)
[2020-09-11] MEDS: estradioL 1 MG TABLET PO (08:11)
[2020-09-11] MEDS: DULOXETINE 30 MG CAPSULE 60 MG PO (08:11)
[2020-09-11] MEDS: PANTOPRAZOLE DR 40 MG TABLET PO (08:13)
[2020-09-11] MEDS: DOCUSATE 250 MG CAPSULE PO (08:13)
[2020-09-11] MEDS: LORATADINE 10 MG TABLET PO (08:14)
--- NOTE | 2020-09-11 09:01 | PC.NURSE ---
Pt A&O x3, alert, awake this a.m. sitting up in chair dressed and reports she is ready to go home. Finished 100% of breakfast and voiding without difficulty. LS CTA, abdomen Soft, slightly tender around lap sites. +BS x4.MD at bedside this a.m. evaluating patient and clearing her for discharge. Pt verbalizes understanding of discharge instructions, activity, medications and follow up appointments in 2 weeks via [facility] (September 29 at 445 p.m.) and 6 weeks (October 22 at 230 p.m.) in the clinic with MD Young.
--- NOTE | 2020-09-11 10:55 | CM.IDA ---
Initial DCP Assessment Note Pt is a 59 yo female, resident of [place], now POD#1 from Anterior/Posterior repair, and TVT w. cystoscopy by Dr Young PCP: Mauricio Camp: Alma Delia Reviewed chart, pt discussed in multidisciplinary rounds this morning. Attempted to meet patient and she had already left; home w/supportive family and close outpatient f/u scheduled No needs from this DCP team ANITA Woodard
--- NOTE | 2020-09-11 16:40 | P.PN_ITS ---
Subjective Subjective Date Patient Seen: 09/11/20 Time Patient Seen: 08:00 Interval history: Patient is a 59-year-old 13 para 10 postop day # 1 status post anterior-posterior repair, and TVT with cystoscopy. Her catheter was removed at 6:00 a.m. along with the vaginal packing. She voided 230 cc of clear yellow urine and had a 60 cc postvoid residual. Her pain is well controlled. She has had spotting only. She is tolerating a diet. No nausea or vomiting. Exam Vital Signs (past 8 hours): Oxygen Delivery Method Room Air Oxygen Flow Rate 0 Narrative Exam Narrative: Generally: Patient walking around in room, no acute distress Lungs: Clear to auscultation bilaterally Cardiovascular: Regular rate and rhythm Abdomen: Soft and flat. Incisions: No erythema around the suprapubic incisions Perineum: Old blood Extremities: Negative Homans Objective Labs Result Diagrams: 09/11/20 05:20 Labs: Laboratory Results - last 24 hr 09/11/20 05:20 WBC 13.0 H RBC 4.19 Hgb 11.3 L Hct 34.5 L MCV 82.4 MCH 27.0 MCHC 32.7 RDW 13.7 Plt Count 270 Neut % (Auto) 70.6 Lymph % (Auto) 22.7 L Mcdonough % (Auto) 6.0 Eos % (Auto) 0.1 L Baso % (Auto) 0.6 Neut # (Auto) 9200 H Lymph # (Auto) 2900 Mcdonough # (Auto) 800 Eos # (Auto) 0 Baso # (Auto) 100 PFSH Medical History (Updated 09/10/20 @ 07:13 by Reji Evans RN) Chronic pain syndrome GERD (gastroesophageal reflux disease) History of foot fracture Hypertension (2012) Peripheral neuropathy Renal carcinoma Surgical History (Updated 09/10/20 @ 07:13 by Reji Evans RN) History of cholecystectomy Status post laparoscopic supracervical hysterectomy (2005) Family History Grandmother Colorectal cancer Sister Age: 55 Lupus Son Cardiac cancer Mother Valvular heart disease Congestive heart failure Rheumatic fever Social History household members: spouse Smoking Status: Never smoker alcohol intake: never Assessment & Plan Post-op Postoperative Procedures: Procedures Operation Date: 09/10/20 08:15 Actual Procedures Side Surgeon p Anterior/Posterior repair, Isa Young MD s TVT w. cystoscopy Isa Young MD Postoperative day: 1 Postoperative status: doing well Postoperative plan: discharge Postoperative plan narrative: Discharge to home F/U 2 wks by Telehealth Void every 2-3 hours Call with fever, chills, redness or drainage around the incisions, or bleeding vaginally more than spotting Call if unable to empty your bladder Time Spent With Patient Time with patient: less than 15 minutes
== END 2020-09-11 09:01 | disposition home or self-care (01) ==
LOC: AC 12:29
PROVIDERS: Admitting Provider Obstetrics & Gynecology; PCP Student in an Organized Health Care Education/Training Program; Referring Provider Obstetrics & Gynecology; Visit Provider Obstetrics & Gynecology
PROC: (CPT 57260; principal; 2020-09-10 08:15)
PROC: 0TSD0ZZ Reposition Urethra, Open Approach (ICD-10-PCS; CPT 57260; 2020-09-10 08:15)
DX: N81.10 Cystocele, unspecified (principal); N81.6 Rectocele; N39.3 Stress incontinence (female) (male); K21.9 Gastro-esophageal reflux disease without esophagitis; I10 Essential (primary) hypertension; G89.4 Chronic pain syndrome
CPT/HCPCS: 57260; 57288; 36415; 85025; C1771; G0378; J0690; J1100; J1885; J2405; J2704; J3010

== ENCOUNTER → 2020-12-28 15:16 | Outpatient (CLI) | payer OTHER, SELFPAY ==
[2020-09-10 13:12] VITALS: BMI 34.4
--- NOTE | 2020-12-28 15:17 | DI.RAD.S_ITS ---
PROCEDURE: XR SINUS MIN 3V INDICATIONS: L Facial swelling TECHNIQUE: 3 views of the sinuses were acquired. COMPARISON: None. FINDINGS: Sinuses: The visualized sinuses demonstrate no air-fluid levels or mucosal thickening. The visualized mastoids also appear clear. Bones: No suspicious bony lesions. Nasal septum is midline. IMPRESSION: Clear sinuses. Dictated by: Rudy Escobar M.D. on 12/28/2020 at 15:39 Approved by: Rudy Escobar M.D. on 12/28/2020 at 15:41
== END ==
PROVIDERS: PCP Student in an Organized Health Care Education/Training Program; Referring Provider Student in an Organized Health Care Education/Training Program; Visit Provider Student in an Organized Health Care Education/Training Program
DX: R22.0 Localized swelling, mass and lump, head (principal)
CPT/HCPCS: 70220

== ENCOUNTER → 2021-01-06 08:40 | Outpatient (CLI) | payer OTHER, SELFPAY ==
[2020-09-10 13:12] VITALS: BMI 34.4
--- NOTE | 2021-01-06 08:41 | DI.MRI.S_ITS ---
PROCEDURE: MR HIP RT WO CON INDICATIONS: Progressive hip pain DJD TECHNIQUE: Noncontrast coronal T1 spin echo and STIR through the bony pelvis. Coronal and axial T2 fast spin echo with fat saturation, sagittal T1 spin echo, and oblique axial T2 fast spin echo with fat saturation through the hip. COMPARISON: None. FINDINGS: Bones and joints: Bone marrow of the pelvic ring and proximal femurs show normal signal throughout. No intraosseous lesions or fractures. No avascular necrosis of the femoral heads. Tendons and ligaments: T2 hyperintense signal within the gluteus medius/minimus attachment with adjacent fluid. The origin of the hamstring tendon is intact at the ischial tuberosity. Labrum and cartilage: The acetabular labrum appears intact in the absence of intra-articular contrast. Cartilage surface of the femoral head appears maintained without evidence of tear or surface irregularity. Soft tissues: Quadratus femoris muscle demonstrates no internal edema to suggest ischiofemoral impingement. The proximal sciatic neurovascular bundle appears normal. No free pelvic fluid. Bladder wall thickness is normal. Multiple T2 hyperintense lesions are seen within the uterus, which may reflect degenerating fibroids. IMPRESSION: 1. Edematous signal at the attachment of the gluteus medius/minimus with adjacent fluid, compatible with partial tear and bursitis. Dictated by: Tacos Streeter M.D. on 01/06/2021 at 9:27 Approved by: Tacos Streeter M.D. on 01/06/2021 at 9:38
== END ==
PROVIDERS: PCP Student in an Organized Health Care Education/Training Program; Referring Provider Physical Medicine & Rehabilitation; Visit Provider Physical Medicine & Rehabilitation
DX: M70.61 Trochanteric bursitis, right hip (principal)
CPT/HCPCS: 73721

== ENCOUNTER → 2021-01-27 07:13 | Outpatient (CLI) | payer OTHER, SELFPAY ==
[2020-09-10 13:12] VITALS: BMI 34.4
--- NOTE | 2021-01-27 07:14 | DI.MRI.S_ITS ---
PROCEDURE: MR LUMBAR SPINE WO CON INDICATIONS: Right L4-5 radiculopathy TECHNIQUE: Noncontrast sagittal T1 spin echo and T2 fast echo, sagittal STIR, axial T1 and T2 fast spin echo through the lumbar spine. In cases with scoliosis, additional coronal T2 fast spin echo may be performed. COMPARISON: [facility], , L-SPINE WITHOUT CONTRAST, 10/03/2013, 7:25. FINDINGS: Image quality: Excellent. Alignment and Curvature: There is normal bony alignment. Bone Marrow: Marrow is of normal overall signal. Increased T1 and T2 signal is present at L4. No acute vertebral body compression fractures. Spinal Cord: Conus medullaris terminates at the L1 level. Visualized cord demonstrates normal signal and size. Paraspinous Soft Tissues: No paravertebral masses. Discs: Severe desiccation is present L4-5, overall moderate throughout the remainder of the lumbar spine. L1-L2: No disc bulge, spinal stenosis or foraminal narrowing. Mild facet and ligamentum flavum hypertrophy. L2-L3: No disc bulge, spinal stenosis or foraminal narrowing. Mild facet and ligamentum flavum hypertrophy. L3-L4: Mild disc bulge without spinal stenosis. No foraminal narrowing. Facet and ligamentum flavum hypertrophy are present. L4-L5: Mild disc bulge with small posterior protrusion. Increased T2 signal is noted posteriorly suggestive of annular fissure. Minimal canal narrowing is present, unchanged. Moderate right foraminal narrowing, progressive with stable minimal to mild left narrowing. Facet and ligamentum flavum hypertrophy are present. L5-S1: No disc bulge, spinal stenosis or foraminal narrowing. Bilateral facet hypertrophy. IMPRESSION: 1. While this is overall stable exam, there has been progression of foraminal narrowing on the right, as above. 2. Minimal canal narrowing at L4-5, stable. Dictated by: Gail Andrews M.D. on 01/27/2021 at 12:29 Approved by: Gail Anderws M.D. on 01/27/2021 at 12:36
== END ==
PROVIDERS: PCP Student in an Organized Health Care Education/Training Program; Referring Provider Physical Medicine & Rehabilitation; Visit Provider Physical Medicine & Rehabilitation
DX: M51.26 Other intervertebral disc displacement, lumbar region (principal); M48.061 Spinal stenosis, lumbar region without neurogenic claudication
CPT/HCPCS: 72148

== ENCOUNTER → 2021-02-02 11:04 | Outpatient (CLI) | payer OTHER, SELFPAY ==
[2020-09-10 13:12] VITALS: BMI 34.4
[2021-02-02 12:37] LABS: COVID19 -Nasal RAPID POSITIVE (Negative)
== END ==
PROVIDERS: PCP Student in an Organized Health Care Education/Training Program; Visit Provider Physical Medicine & Rehabilitation
DX: U07.1 COVID-19 (principal)
CPT/HCPCS: 87635; C9803

== ENCOUNTER → 2021-02-15 11:24 | Outpatient (CLI) | payer OTHER, SELFPAY ==
[2020-09-10 13:12] VITALS: BMI 34.4
[2021-02-15 15:11] LABS: COVID19 -Nasal RAPID POSITIVE (Negative)
== END ==
PROVIDERS: PCP Student in an Organized Health Care Education/Training Program; Referring Provider Physical Medicine & Rehabilitation; Visit Provider Physical Medicine & Rehabilitation
DX: Z20.822 Contact with and (suspected) exposure to COVID-19 (principal)
CPT/HCPCS: 87635; C9803

== ENCOUNTER → 2021-02-24 12:37 | Outpatient (CLI) | payer OTHER, SELFPAY ==
[2020-09-10 13:12] VITALS: BMI 34.4
[2021-02-24 15:13] LABS: COVID19 -Nasal RAPID Negative (Negative)
== END ==
PROVIDERS: PCP Student in an Organized Health Care Education/Training Program; Visit Provider Student in an Organized Health Care Education/Training Program
DX: Z20.822 Contact with and (suspected) exposure to COVID-19 (principal)
CPT/HCPCS: 87635

== ENCOUNTER → 2021-03-03 16:35 | Outpatient (CLI) | payer OTHER, SELFPAY ==
[2020-09-10 13:12] VITALS: BMI 34.4
--- NOTE | 2021-03-03 | DI.MG.S_ITS ---
BILATERAL DIGITAL SCREENING MAMMOGRAM 3D/2D WITH CAD: 03/03/2021 CLINICAL: Routine screening. Comparison is made to exams dated: 02/26/2020 mammogram, 02/19/2019 mammogram, and 02/13/2018 mammogram - [facility]. There are scattered fibroglandular elements in both breasts. Current study was also evaluated with a Computer Aided Detection (CAD) system. No significant masses, calcifications, or other findings are seen in either breast. There has been no significant interval change. IMPRESSION: NEGATIVE There is no mammographic evidence of malignancy. A 1 year screening mammogram is recommended. This exam was interpreted at Station ID: [id number]. NOTE: For mammograms, a report in lay terms will be sent to the patient. Approximately 15% of breast malignancies will not be visualized mammographically. In the management of a palpable breast mass, a negative mammogram must not discourage biopsy of a clinically suspicious lesion. Electronically Signed By: Jonathon kendall/loan:03/03/2021 16:58:41 letter sent: Normal Exam ACR BI-RADS Category 1: Negative [id number]
== END ==
PROVIDERS: PCP Student in an Organized Health Care Education/Training Program; Referring Provider Student in an Organized Health Care Education/Training Program; Visit Provider Student in an Organized Health Care Education/Training Program
DX: Z12.31 Encounter for screening mammogram for malignant neoplasm of breast (principal)
CPT/HCPCS: 77063; 77067

== ENCOUNTER → 2021-04-12 10:24 | Outpatient (CLI) | payer OTHER, SELFPAY ==
[2020-09-10 13:12] VITALS: BMI 34.4
[2021-04-12 12:01] LABS: COVID19 -Nasal RAPID Negative (Negative)
== END ==
PROVIDERS: PCP Student in an Organized Health Care Education/Training Program; Visit Provider Physical Medicine & Rehabilitation
DX: Z20.822 Contact with and (suspected) exposure to COVID-19 (principal)
CPT/HCPCS: 87635; C9803

== ENCOUNTER 2021-04-13 14:13 | Outpatient (CLI) | payer OTHER, SELFPAY ==
[2020-09-10 13:12] VITALS: BMI 34.4
[2021-04-13] VITALS (8 sets, daily range): BP systolic 117–157; BP diastolic 61–83; PULSE 65–76; RESP 12–20; TEMP 36.3; O2SAT 97–100
--- NOTE | 2021-04-13 14:15 | DI.RAD.S_ITS ---
PROCEDURE: PAIN L/S TRANSFORAMINAL INJECT INDICATIONS: SPONDYLOSIS COMPARISON: [facility], MR, MR LUMBAR SPINE WO CON, 01/27/2021, 8:05. [facility], MR, MR HIP RT WO CON, 01/06/2021, 8:52. FINDINGS: Fluoroscopic spot filming was performed to verify placement of spinal needles at the right L4-L5 level(s), as labeled on the films. Appropriate location(s) of the needle tip(s) was confirmed by injection of iodinated contrast. IMPRESSION: Fluoroscopy for pain management. Dictated by: Porfirio Doyle M.D. on 04/13/2021 at 16:38 Approved by: Porfirio Doyle M.D. on 04/13/2021 at 16:39
[2021-04-13] MEDS: MIDAZOLAM 5 MG/5 ML VIAL IV (14:35)
[2021-04-13] MEDS: fentaNYL 100 MCG/2 ML INJ 50 MCG IV (14:35)
[2021-04-13] MEDS: BUPIVACAINE 0.25% (PF) VIAL 2 ML INJ (14:39)
[2021-04-13] MEDS: IOPAMIDOL 15 ML VIAL 3 ML INJ (14:39)
[2021-04-13] MEDS: BETAMETHASONE 30 MG/5 ML MDV 6 MG INJ (14:40)
[2021-04-13] MEDS: DEXAMETHASONE 10 MG/ML VIAL 20 MG INJ (14:40)
--- NOTE | 2021-04-13 14:51 | P.PCN_ITS ---
Date/Time/Diagnoses Date of procedure: 04/13/21 Time of procedure: 14:51 Pre-procedure diagnosis: 1. FORAMINAL STENOSIS WITH LE SYMPTOMS Post-procedure diagnosis: same Procedure Notes Procedure: 1. FLUOROSCOPICALLY GUIDED CONTRAST CONTROLLED TRANSFORAMINAL EPIDURAL STEROID INJECTION - RIGHT L4/5 TFESI Indications: Jojo is referred by Dr. Barth for treatment of Foraminal Stenosis with Right LE Symptoms Physician: Javon Norris Total Fluoroscopy time (seconds): 12 Total sedation minutes: 12 Complications: none Procedure in detail & Post-procedure care: FINDINGS Foraminal Nerve Root Compression secondary to disc disease and facet hypertrophy DESCRIPTION OF PROCEDURE Following review of allergy and review of potential side effects and complications, including, but not necessarily limited to, infection, allergic reaction, local tissue breakdown, stroke, temporary or permanent nerve injury, paralysis, and possible , the patient indicated that the patient understood and agreed to proceed. An informed consent document was signed by the patient, witnessed by a nurse, and placed in the patient's chart. Additionally, other treatment options including medications, modalities, and physical therapy were reviewed with the patient. After review of previous anaesthesic history and IV conscious sedation the patient was deemed safe to proceed with today?s procedure with IV conscious sedation as ASA class II designation. Safety time-out was performed to confirm patient ID, procedure to be performed and site of procedure. IV sedation was accomplished with a combination of 2mg of Versed and 50mcg of Fentanyl was administered by the RN after DO order, titrated to patient comfort during the course of the procedure while the patient remained responsive to all verbal commands In the prone position following sterile prep and drape of the lumbar region, the right L4/5 posterior neuroforamen was identified fluoroscopically. The skin was anesthetized via a 25-gauge 1.5-inch needle with 1% lidocaine solution. At this point, a 22-gauge 5-inch spinal needle was atraumatically introduced and advanced under fluoroscopic guidance through the posterior right L4/5 neuroforamen to approximately the anterior aspect of the canal. Depth was confirmed on lateral view. Following negative aspiration, injection of approximately 1.5cc of Isovue 200 under live fluoroscopy in the AP view confirmed excellent flow along the nerve root, into the epidural space without vascular or intrathecal uptake observed Radiological data, including multiple fluoroscopic views of the lumbosacral spine, reveal a spinal needle at the right L4/5 posterior neuroforamen. Subsequent views show flow of contrast material flowing superiorly and inferiorly along the nerve root confirming epidural flow. Subsequently, a test dose of 1.5 cc of 1% lidocaine solution was administered and patient was observed for two minutes for signs or symptoms of complications, including abdominal pain, shortness of breath, bilateral upper or lower extremity weakness, nausea and vomiting, prior to steroid injection. At this point, a total of 3cc or 20mg of dexamethasone and 6mg of betamethasone was injected without incident. The procedure tolerated the procedure well without signs or symptoms of complications prior to transfer to the recovery area continued monitoring without incident. The patient was then transferred to the recovery area where they were observed for an appropriate time after the injection. The patient reported a VAS score of 7 prior to the procedure and a post- procedure VAS of 0. POST OP INSTRUCTIONS The patient was provided a Pain Log to continue to record their response to the target-specific procedure prior to follow-up visit with their referring physician. Additionally, specific post-injection care instructions and a contact number to our office were provided if concerns arise regarding possible complications associated with the procedure are suspected.
== END 2021-04-13 15:12 | disposition home or self-care (01) ==
PROVIDERS: PCP Student in an Organized Health Care Education/Training Program; Referring Provider Physical Medicine & Rehabilitation; Visit Provider Physical Medicine & Rehabilitation
DX: M48.061 Spinal stenosis, lumbar region without neurogenic claudication (principal); M51.16 Intervertebral disc disorders with radiculopathy, lumbar region
CPT/HCPCS: 64483; 99152; J0702; J1100; J2250; J3010

== ENCOUNTER → 2021-07-22 09:31 | Outpatient (CLI) | payer OTHER, SELFPAY ==
[2020-09-10 13:12] VITALS: BMI 34.4
[2021-07-22 12:16] LABS: Alanine Aminotransferase 18 IU/L (<35); Albumin 4.1 g/dL (3.5-5.0); Albumin Globulin Ratio 1.5 (1.0-2.8); Alkaline Phosphatase 98 U/L (38-126); Amylase 56 U/L (30-110); Aspartate Aminotransferase 19 IU/L (14-36); BUN Creatinine Ratio 16.2 (6-22); Bilirubin Total 0.1 mg/dL (0.2-1.3); Blood Urea Nitrogen 12 mg/dL (7-17); Calcium 8.7 mg/dL (8.4-10.2); Carbon Dioxide 27 mmol/L (22-32); Chloride 105 mmol/L (98-107); Estimated Glomerular Filt Rate > 60 mL/min (>60); Gamma Glutamyl Transpeptidase 49 U/L (12-43); Globulin 2.8 g/dL (1.7-4.1); Glucose 109 mg/dL (70-100); HEMOLYSIS < 15 (0-50); Lipase 100 U/L (23-300); Potassium 3.9 mmol/L (3.4-5.1); Sodium 141 mmol/L (137-145); Total Protein 6.9 g/dL (6.3-8.2)
[2021-07-22 12:51] LABS: TSH w/ Reflex to FT4 1.85 uIU/mL (0.47-4.68)
== END ==
PROVIDERS: PCP Student in an Organized Health Care Education/Training Program; Referring Provider Student in an Organized Health Care Education/Training Program; Visit Provider Student in an Organized Health Care Education/Training Program
DX: R10.11 Right upper quadrant pain (principal); C64.9 Malignant neoplasm of unspecified kidney, except renal pelvis; E03.9 Hypothyroidism, unspecified
CPT/HCPCS: 36415; 80053; 82150; 82977; 83690; 84443

== ENCOUNTER → 2021-09-27 11:16 | Outpatient (CLI) | payer OTHER, SELFPAY ==
[2021-09-23 09:14] VITALS: BMI 34.4
[2021-09-27 12:21] LABS: COVID19 -Nasal RAPID Negative (Negative)
== END ==
PROVIDERS: PCP Student in an Organized Health Care Education/Training Program; Visit Provider Physical Medicine & Rehabilitation
DX: Z20.822 Contact with and (suspected) exposure to COVID-19 (principal)
CPT/HCPCS: 87635

== ENCOUNTER → 2021-09-27 16:33 | Outpatient (CLI) | payer OTHER, SELFPAY ==
[2021-09-23 09:14] VITALS: BMI 34.4
--- NOTE | 2021-09-27 16:35 | DI.US.S_ITS ---
PROCEDURE: US ABDOMEN LIMITED INDICATIONS: RIGHT UPPER QUADRANT PAIN TECHNIQUE: Real-time focused scanning was performed of the abdomen, with image documentation. COMPARISON: None. FINDINGS: Cholecystectomy. Diffuse increased hepatic parenchymal echogenicity indicative of steatosis. Normal hepatic parenchymal echotexture and contour. No focal hepatic mass. No intrahepatic or extrahepatic biliary ductal dilatation. Visualized portions of the pancreas and right kidney appear normal. IMPRESSION: Diffuse mild to moderate hepatic steatosis. Cholecystectomy. No biliary ductal dilatation. Dictated by: J Carlos Rosado M.D. on 09/28/2021 at 11:08 Approved by: J Carlos Rosado M.D. on 09/28/2021 at 11:09
== END ==
PROVIDERS: PCP Student in an Organized Health Care Education/Training Program; Referring Provider Student in an Organized Health Care Education/Training Program; Visit Provider Student in an Organized Health Care Education/Training Program
DX: K76.0 Fatty (change of) liver, not elsewhere classified (principal); R10.11 Right upper quadrant pain; Z20.822 Contact with and (suspected) exposure to COVID-19; Z90.49 Acquired absence of other specified parts of digestive tract
CPT/HCPCS: 76705; 87635; C9803

== ENCOUNTER 2021-09-28 15:23 | Outpatient (CLI) | payer OTHER, SELFPAY ==
[2021-09-23 09:14] VITALS: BMI 34.4
[2021-09-28] VITALS (9 sets, daily range): BP systolic 129–175; BP diastolic 78–94; PULSE 85–93; RESP 14–20; TEMP 36.6; O2SAT 96–100
--- NOTE | 2021-09-28 15:24 | DI.RAD.S_ITS ---
PROCEDURE: PAIN L/S TRANSFORAM INJECT GARIMA COMPARISON: None. INDICATIONS: spondylosis FINDINGS: Intraoperative fluoroscopy for bilateral L4-5 transforaminal epidural steroid injections. Ethan are placed in the appropriate positions bilaterally. Contrast is seen in the expected locations bilaterally confirming appropriate needle placement. IMPRESSION: Bilateral L4-5 transforaminal epidural steroid injection confirmed with contrast. Dictated by: Sophia Babb M.D. on 09/29/2021 at 11:03 Approved by: Sophia Babb M.D. on 09/29/2021 at 11:04
[2021-09-28] MEDS: MIDAZOLAM 2 MG/2 ML VIAL 4 MG IV (16:59)
[2021-09-28] MEDS: IOPAMIDOL 15 ML VIAL 3 ML INJ (16:59)
[2021-09-28] MEDS: BUPIVACAINE 0.25% (PF) VIAL 2 ML INJ (16:59)
[2021-09-28] MEDS: DEXAMETHASONE 10 MG/ML VIAL 20 MG INJ (17:00)
[2021-09-28] MEDS: BETAMETHASONE 30 MG/5 ML MDV 12 MG INJ (17:00)
--- NOTE | 2021-09-28 17:14 | PM.PROC.IR.1 ---
Date/Time/Diagnoses Date of procedure: 09/28/21 Time of procedure: 17:14 Pre-procedure diagnosis: 1. FORAMINAL STENOSIS WITH LE SYMPTOMS Procedure Notes Procedure: 1. FLUOROSCOPICALLY GUIDED CONTRAST CONTROLLED TRANSFORAMINAL EPIDURAL STEROID INJECTION - BILATERAL L4/5 TFESI Indications: Jojo is referred by Dr. Barth for treatment of Foraminal Stenosis with bilateral LE Symptoms Physician: Javon Norris Total Fluoroscopy time (seconds): 17 Total sedation minutes: 17 Complications: none Procedure in detail & Post-procedure care: FINDINGS Foraminal Nerve Root Compression secondary to disc disease and facet hypertrophy DESCRIPTION OF PROCEDURE Following review of allergy and review of potential side effects and complications, including, but not necessarily limited to, infection, allergic reaction, local tissue breakdown, stroke, temporary or permanent nerve injury, paralysis, and possible , the patient indicated that the patient understood and agreed to proceed. An informed consent document was signed by the patient, witnessed by a nurse, and placed in the patient's chart. Additionally, other treatment options including medications, modalities, and physical therapy were reviewed with the patient. After review of previous anaesthesic history and IV conscious sedation the patient was deemed safe to proceed with today?s procedure with IV conscious sedation as ASA class II designation. Safety time-out was performed to confirm patient ID, procedure to be performed and site of procedure. IV sedation was accomplished with a combination of 4mg of Versed was administered by the RN after DO order, titrated to patient comfort during the course of the procedure while the patient remained responsive to all verbal commands In the prone position following sterile prep and drape of the lumbar region, the right L4/5 posterior neuroforamen was identified fluoroscopically. The skin was anesthetized via a 25-gauge 1.5-inch needle with 1% lidocaine solution. At this point, a 25-gauge 3.5-inch spinal needle was atraumatically introduced and advanced under fluoroscopic guidance through the posterior right L4/5 neuroforamen to approximately the anterior aspect of the canal. Depth was confirmed on lateral view. Following negative aspiration, injection of approximately 1.5cc of Isovue 200 under live fluoroscopy in the AP view confirmed excellent flow along the nerve root, into the epidural space without vascular or intrathecal uptake observed Radiological data, including multiple fluoroscopic views of the lumbosacral spine, reveal a spinal needle at the right L4/5 posterior neuroforamen. Subsequent views show flow of contrast material flowing superiorly and inferiorly along the nerve root confirming epidural flow. Subsequently, a test dose of 1.5cc of 1% lidocaine solution was administered and patient was observed for two minutes for signs or symptoms of complications, including abdominal pain, shortness of breath, bilateral upper or lower extremity weakness, nausea and vomiting, prior to steroid injection. At this point, a total of 3cc or 20mg of dexamethasone and 6mg betamethasone was injected without incident. Attention was then refocused to the left L4/5 level where the identical procedure was replicated. The procedure tolerated the procedure well without signs or symptoms of complications prior to transfer to the recovery area continued monitoring without incident. The patient was then transferred to the recovery area where they were observed for an appropriate time after the injection. The patient reported a VAS score of 7 prior to the procedure and a post-procedure VAS of 0. POST OP INSTRUCTIONS The patient was provided a Pain Log to continue to record their response to the target-specific procedure prior to follow-up visit with their referring physician. Additionally, specific post-injection care instructions and a contact number to our office were provided if concerns arise regarding possible complications associated with the procedure are suspected.
== END 2021-09-28 17:27 | disposition home or self-care (01) ==
LOC: RAD 15:23
PROVIDERS: PCP Student in an Organized Health Care Education/Training Program; Referring Provider Physical Medicine & Rehabilitation; Visit Provider Physical Medicine & Rehabilitation
DX: M48.061 Spinal stenosis, lumbar region without neurogenic claudication (principal); M51.16 Intervertebral disc disorders with radiculopathy, lumbar region
CPT/HCPCS: 64483; 99152; J0702; J1100; J2250

== ENCOUNTER → 2021-10-06 07:27 | Outpatient (CLI) | payer OTHER, SELFPAY ==
[2021-09-23 09:14] VITALS: BMI 34.4
[2021-10-06 08:16] LABS: Add Manual Diff / Slide Review NO; Basophils Absolute Auto 0 /uL (0-100); Basophils Percent Auto 0.5 % (0-2); Eosinophils Absolute Auto 0 /uL (0-450); Eosinophils Percent Auto 0.1 % (2-4); Hematocrit 34.7 % (36-46); Hemoglobin 11.5 g/dL (12.0-16.0); Lymphocytes Absolute Auto 2000 /uL (1100-4500); Lymphocytes Percent Auto 23.6 % (25-40); Mean Corpuscular HGB Conc 33.1 % (30-36); Mean Corpuscular Hemoglobin 25.7 PG (26-34); Mean Corpuscular Volume 77.7 fL (80-100); Monocytes Absolute Auto 500 /uL (0-900); Monocytes Percent Auto 5.5 % (3-14); Neutrophils Absolute Auto 5900 /uL (1500-7000); Neutrophils Percent Auto 70.3 % (50-75); Platelet Count 267 X10^3/uL (150-400); Red Blood Cell Count 4.46 X10^6/uL (4.0-5.2); Red Cell Distribution Width 14.5 % (11.6-14.8); White Blood Cell Count 8.4 X10^3/uL (4.5-11.0)
[2021-10-06 08:34] LABS: Cholesterol 160 mg/dL (140-199); HDL Cholesterol 51 mg/dL (40-60); LDL Cholesterol Calculated 76 mg/dL (<100); Triglycerides 165 mg/dL (35-150)
== END ==
PROVIDERS: PCP Student in an Organized Health Care Education/Training Program; Referring Provider Internal Medicine; Visit Provider Internal Medicine
DX: R06.00 Dyspnea, unspecified (principal); E78.5 Hyperlipidemia, unspecified
CPT/HCPCS: 36415; 80061; 85025

== ENCOUNTER → 2021-10-11 16:06 | Outpatient (CLI) | payer OTHER, SELFPAY ==
[2021-09-23 09:14] VITALS: BMI 34.4
[2021-10-11 17:33] LABS: Alanine Aminotransferase 17 IU/L (<35); Albumin Globulin Ratio 1.5 (1.0-2.8); Alkaline Phosphatase 103 U/L (38-126); Aspartate Aminotransferase 17 IU/L (14-36); BUN Creatinine Ratio 17.4 (6-22); Bilirubin Total 0.2 mg/dL (0.2-1.3); Blood Urea Nitrogen 12 mg/dL (7-17); Calcium 8.8 mg/dL (8.4-10.2); Carbon Dioxide 31 mmol/L (22-32); Chloride 99 mmol/L (98-107); Estimated Glomerular Filt Rate > 60 mL/min (>60); Globulin 2.7 g/dL (1.7-4.1); Glucose 134 mg/dL (70-100); HEMOLYSIS < 15 (0-50); Potassium 3.4 mmol/L (3.4-5.1); Sodium 139 mmol/L (137-145); Total Protein 6.7 g/dL (6.3-8.2)
== END ==
PROVIDERS: PCP Student in an Organized Health Care Education/Training Program; Referring Provider Internal Medicine; Visit Provider Internal Medicine
DX: I10 Essential (primary) hypertension (principal)
CPT/HCPCS: 36415; 80053

== ENCOUNTER → 2021-10-22 08:11 | Outpatient (CLI) | payer OTHER, SELFPAY ==
[2021-09-23 09:14] VITALS: BMI 34.4
[2021-10-22 10:32] LABS: Alanine Aminotransferase 16 IU/L (<35); Albumin 3.8 g/dL (3.5-5.0); Albumin Globulin Ratio 1.6 (1.0-2.8); Alkaline Phosphatase 112 U/L (38-126); Aspartate Aminotransferase 17 IU/L (14-36); BUN Creatinine Ratio 15.9 (6-22); Bilirubin Total 0.2 mg/dL (0.2-1.3); Blood Urea Nitrogen 11 mg/dL (7-17); Calcium 8.8 mg/dL (8.4-10.2); Carbon Dioxide 32 mmol/L (22-32); Chloride 98 mmol/L (98-107); Estimated Glomerular Filt Rate > 60 mL/min (>60); Globulin 2.4 g/dL (1.7-4.1); Glucose 86 mg/dL (70-100); HEMOLYSIS < 15 (0-50); Potassium 4.2 mmol/L (3.4-5.1); Sodium 137 mmol/L (137-145); Total Protein 6.2 g/dL (6.3-8.2)
== END ==
PROVIDERS: PCP Student in an Organized Health Care Education/Training Program; Referring Provider Internal Medicine; Visit Provider Internal Medicine
DX: I10 Essential (primary) hypertension (principal)
CPT/HCPCS: 36415; 80053

== ENCOUNTER → 2021-11-29 13:10 | Outpatient (CLI) | payer OTHER, SELFPAY ==
[2021-09-23 09:14] VITALS: BMI 34.4
--- NOTE | 2021-11-29 13:12 | DI.ECHO.S_ITS ---
[facility]---------+ [facility] +---------+ : : [address] : [address] : : : : [id number] : : : : Phone: [phone]---------+ Echocardiogram Report + + :Name: MICHELE HOLMAN Study Date: 11/29/2021 Height: 65 in : :[facility] ReadingLocation: Weight: 220 lb : : Gender: Female BSA: 2.1 m2 : :: 1960 Age: 61 yrs BP: 153/98 mmHg: :Reason For Study: DYSPNEA : :Ordering Physician: MICHAEL, : :LUPE Performed By: Nataly Blank : :Referring: LUPE GAVIN : + + Interpretation Summary Normal sinus rhythm. Normal LV size; mild concentric LVH. There is normal wall motion and left ventricular systolic function. Ejection fraction is 60-65%. Stage I diastolic dysfunction. Normal chamber sizes. No significant valvular abnormalities. Atherosclerotic plaque noted in the ascending aorta. Compared to prior study no changes have occurred. Procedure: A two-dimensional transthoracic echocardiogram with color flow and Doppler was performed. The study quality was technically adequate. Comparison is made with the echocardiogram of 09/06/2012. The patient was in sinus rhythm with heart rates between 65-75 bpm during the exam. Left Ventricle: The left ventricle is normal in size. There is mild concentric left ventricular hypertrophy. The ejection fraction is estimated to be 60-65%. Right Ventricle: The right ventricle is normal in size and function. Atria: The left atrial size is normal. Right atrial size is normal. There is no Doppler evidence for an interatrial shunt. Mitral Valve: The mitral valve is normal in structure and function. There is trace mitral regurgitation. Aortic Valve: The aortic valve is trileaflet. The aortic valve opens well. There is no aortic valve stenosis. No aortic regurgitation is present. Tricuspid Valve: The tricuspid valve is normal in structure and function. There is mild tricuspid regurgitation. The right ventricular systolic pressure is estimated to be at least 28 mmHg based on an estimated right atrial pressure of 3 mm Hg. Pulmonic Valve: The pulmonic valve is not well visualized. There is no pulmonic valvular regurgitation. Great Vessels: The aortic root is normal size. The ascending aorta is at the upper limits of normal in size. The IVC is of normal diameter and collapses greater than 50% with a sniff. This suggests a low right atrial pressure of 3 mm Hg. Pericardium/ Pleura There is no pericardial effusion. There is no pleural effusion. MMode/2D Measurements & Calculations LVIDd: 4.3 cm LVOT diam: 2.1 cm LVIDs: 3.1 cm Ao root diam: 3.1 cm FS: 27.7 % asc Aorta Diam: 3.7 cm EPSS: 0.73 cm Ao Arch Diam (Prox Trans): 3.0 cm IVSd: 1.1 cm LVPWd: 1.2 cm LV robins. diameter/BSA (cm/m^2): 2.1 LV sys. diameter/BSA (cm/m^2): 1.5 LA A2 area: 16.8 cm2 RA long axis: 5.1 cm LA A4 area: 15.6 cm2 RA area: 17.5 cm2 LA length (vol): 4.8 cm RA vol: 51.0 ml LA vol: 46.5 ml RA : 24.8 ml/m2 LA vol index: 22.6 ml/m2 IVC diam: 1.0 cm RVD1 (basal): 4.0 cm RVD2 (mid): 3.5 cm TAPSE: 1.9 cm Doppler Measurements & Calculations Ao V2 max: 139.6 cm/sec LVOT Max Wilian: 107.8 cm/sec Ao V2 mean: 96.4 cm/sec LV V1 max P.6 mmHg Ao max P.8 mmHg LV V1 VTI: 21.0 cm Ao mean P.2 mmHg VERNON(I,D): 3.2 cm2 Ao V2 VTI: 23.1 cm VERNON(V,D): 2.7 cm2 sev ratio: 0.91 VERNON indexed to BSA (cm^2/m^2): 1.6 MV E max wilian: 80.3 cm/sec TR max wilian: 247.3 cm/sec MV A max wilian: 69.9 cm/sec TR max P.5 mmHg MV E/A: 1.1 PA V2 max: 86.6 cm/sec Med Peak E' Wilian: 5.1 cm/sec PA V2 mean: 61.3 cm/sec E/E' med: 15.7 PA mean P.7 mmHg Lat Peak E' Wilian: 6.2 cm/sec PA pr(Accel): 36.2 mmHg E/E' lat: 13.0 E/e' average: 14.4 MV dec time: 0.24 sec SV(LVOT): 74.5 ml Electronically signed by: Lupe Gavin M.D. on [place] Physician:11/30/2021 06:07 PM
[2021-11-29 14:02] LABS: COVID19 -Nasal RAPID Negative (Negative)
--- NOTE | 2021-11-30 19:12 | DI.NM.S_ITS ---
DATE OF SERVICE: 11/30/2021 PROCEDURE PERFORMED: Exercise stress test INDICATION: Shortness of breath, hypertension. CARDIAC STRESS: The patient underwent exercise stress test under the supervision of an attending staff. She walked on Lamin protocol for 6 minutes and 01 seconds, achieved a maximum heart rate of 147, which was 92 percent of target heart rate. Baseline blood pressure 130/92 mmHg. Peak blood pressure 190/100 mmHg. Achieved 7 METs of workload and functional aerobic impairment positive 11 percent. Baseline rhythm was sinus. During stress, no convincing ischemic changes seen. Some nonspecific ST changes seen. No significant arrhythmias seen. The patient had atypical chest pain, which was sharp and below the left breast, which did not get worse with continuation of exercise and slowly resolved with rest. On a scale of 1-10, it was 5 in intensity. CONCLUSION: Exercise stress test is negative for obvious inducible ischemia. Hypertensive blood pressure response. Peak blood pressure 190/100. No anginal symptoms however, atypical chest pain during exercise, which did not get worse with continued exercise without any ischemic electrocardiographic changes or significant arrhythmias. Overall low-risk exercise stress test. Jojo Fernandez - YUN/jarrett/leonarda doc#: [id number]/job#: [id number] dd: 11/30/2021 17:14:00 dt: 11/30/2021 18:45:00 DICTATING /COPIES TO: Promise Mendez MD COPIES MNE: MARINE;
== END ==
PROVIDERS: PCP Student in an Organized Health Care Education/Training Program; Referring Provider Internal Medicine; Visit Provider Internal Medicine
DX: R06.00 Dyspnea, unspecified (principal); Z20.822 Contact with and (suspected) exposure to COVID-19
CPT/HCPCS: 87635; 93017; 93306

== ENCOUNTER → 2021-12-02 06:55 | Outpatient (CLI) | payer OTHER, SELFPAY ==
[2021-09-23 09:14] VITALS: BMI 34.4
[2021-12-02 08:49] LABS: Hematocrit 33.6 % (36-46); Hemoglobin 11.1 g/dL (12.0-16.0); Mean Corpuscular HGB Conc 33.1 % (30-36); Mean Corpuscular Hemoglobin 25.9 PG (26-34); Mean Corpuscular Volume 78.3 fL (80-100); Platelet Count 247 X10^3/uL (150-400); Red Blood Cell Count 4.29 X10^6/uL (4.0-5.2); Red Cell Distribution Width 14.9 % (11.6-14.8); White Blood Cell Count 7.5 X10^3/uL (4.5-11.0)
[2021-12-02 09:31] LABS: Lactate Dehydrogenase 358 U/L (313-618)
[2021-12-02 09:32] LABS: HEMOLYSIS < 15 (0-50); Iron 46 ug/dL (37-170)
[2021-12-02 09:44] LABS: Percent Iron Saturation 16 % (15-50); Total Iron Binding Capacity 294 ug/dL (265-497); Transferrin 222 mg/dL (206-381)
[2021-12-02 09:59] LABS: Ferritin 8 ng/mL (11-264)
[2021-12-02 10:30] LABS: Folate 5.7 ng/mL (2.76-20.0)
== END ==
PROVIDERS: PCP Student in an Organized Health Care Education/Training Program; Referring Provider Student in an Organized Health Care Education/Training Program; Visit Provider Student in an Organized Health Care Education/Training Program
DX: D50.9 Iron deficiency anemia, unspecified (principal)
CPT/HCPCS: 36415; 82728; 82746; 83540; 83550; 83615; 85027

== ENCOUNTER → 2021-12-03 15:24 | Outpatient (CLI) | payer OTHER, SELFPAY ==
[2021-09-23 09:14] VITALS: BMI 34.4
[2021-12-03 15:39] LABS: Occult Blood 1 Negative (Negative); Occult Blood 2 Negative (Negative)
[2021-12-03 15:40] LABS: Occult Blood 3 Negative (Negative)
== END ==
PROVIDERS: PCP Student in an Organized Health Care Education/Training Program; Referring Provider Student in an Organized Health Care Education/Training Program; Visit Provider Student in an Organized Health Care Education/Training Program
DX: D50.9 Iron deficiency anemia, unspecified (principal)
CPT/HCPCS: 82270

== ENCOUNTER → 2022-02-28 13:26 | Outpatient (CLI) | payer OTHER, SELFPAY ==
[2021-09-23 09:14] VITALS: BMI 34.4
[2022-02-28 14:26] LABS: BUN Creatinine Ratio 19.5 (6-22); Blood Urea Nitrogen 15 mg/dL (7-17); Carbon Dioxide 26 mmol/L (22-32); Chloride 98 mmol/L (98-107); Estimated Glomerular Filt Rate > 60 mL/min (>60); Glucose 113 mg/dL (80-110); HEMOLYSIS < 15 (0-50); Potassium 3.3 mmol/L (3.4-5.1); Sodium 136 mmol/L (137-145)
== END ==
PROVIDERS: PCP Student in an Organized Health Care Education/Training Program; Referring Provider Internal Medicine; Visit Provider Internal Medicine
DX: I10 Essential (primary) hypertension (principal)
CPT/HCPCS: 36415; 80048

== ENCOUNTER → 2022-03-11 09:15 | Outpatient (CLI) | payer OTHER, SELFPAY ==
[2021-09-23 09:14] VITALS: BMI 34.4
[2022-03-11 10:45] LABS: HEMOLYSIS < 15 (0-50); Iron 138 ug/dL (37-170)
[2022-03-11 10:47] LABS: BUN Creatinine Ratio 15.4 (6-22); Blood Urea Nitrogen 10 mg/dL (7-17); Calcium 8.8 mg/dL (8.4-10.2); Carbon Dioxide 28 mmol/L (22-32); Chloride 100 mmol/L (98-107); Estimated Glomerular Filt Rate > 60 mL/min (>60); Glucose 137 mg/dL (80-110); HEMOLYSIS < 15 (0-50); Potassium 3.8 mmol/L (3.4-5.1); Sodium 136 mmol/L (137-145)
[2022-03-11 10:56] LABS: Percent Iron Saturation 53 % (15-50); Total Iron Binding Capacity 258 ug/dL (265-497); Transferrin 218 mg/dL (206-381)
[2022-03-11 11:20] LABS: Ferritin 13 ng/mL (11-264)
== END ==
PROVIDERS: PCP Student in an Organized Health Care Education/Training Program; Referring Provider Internal Medicine; Visit Provider Internal Medicine
DX: D50.9 Iron deficiency anemia, unspecified (principal); I10 Essential (primary) hypertension
CPT/HCPCS: 36415; 80048; 82728; 83540; 83550

== ENCOUNTER → 2022-03-16 08:28 | Outpatient (CLI) | payer OTHER, SELFPAY ==
[2021-09-23 09:14] VITALS: BMI 34.4
--- NOTE | 2022-03-16 | DI.MG.S_ITS ---
BILATERAL DIGITAL SCREENING MAMMOGRAM 3D/2D WITH CAD: 03/16/2022 CLINICAL: Routine screening. Comparison is made to exams dated: 03/03/2021 mammogram, 02/26/2020 mammogram, and 02/19/2019 mammogram - [facility]. There are scattered areas of fibroglandular density in both breasts (category b / 25%-50% glandular tissue). Current study was also evaluated with a Computer Aided Detection (CAD) system. There is a new cluster of round asymmetries in the left breast middle depth central to the nipple seen on the craniocaudal view only. No other significant masses, calcifications, or other findings are seen in either breast. IMPRESSION: INCOMPLETE: NEEDS ADDITIONAL IMAGING EVALUATION The new cluster of round asymmetries in the left breast is consistent with clustered cysts and is indeterminate. Additional views with possible ultrasound are recommended. Based on the Tyrer Cuzick model (a risk assessment model) the patient's lifetime risk is 5.1% and her 10 year risk is 2.0%. According to the ACR, ACS, and NCCN guidelines, an annual breast MRI exam along with mammogram is recommended if the patient's lifetime risk is 20% or greater. This exam was interpreted at Station ID: [id number]. NOTE: For mammograms, a report in lay terms will be sent to the patient. Approximately 15% of breast malignancies will not be visualized mammographically. In the management of a palpable breast mass, a negative mammogram must not discourage biopsy of a clinically suspicious lesion. Electronically Signed By: Abundio Negron M.D. acr/:03/16/2022 13:24:53 letter sent: Additional Imaging Needed ACR BI-RADS Category 0: Incomplete [id number]
== END ==
PROVIDERS: PCP Student in an Organized Health Care Education/Training Program; Referring Provider Student in an Organized Health Care Education/Training Program; Visit Provider Student in an Organized Health Care Education/Training Program
DX: Z12.31 Encounter for screening mammogram for malignant neoplasm of breast (principal)
CPT/HCPCS: 77063; 77067

== ENCOUNTER → 2022-04-13 08:46 | Outpatient (CLI) | payer OTHER, SELFPAY ==
[2021-09-23 09:14] VITALS: BMI 34.4
--- NOTE | 2022-04-13 | DI.MG.S_ITS ---
UNILATERAL LEFT DIGITAL DIAGNOSTIC MAMMOGRAM 3D/2D WITH ADDITIONAL VIEWS: 04/13/2022 CLINICAL: Additional evaluation requested from prior study. Comparison is made to exams dated: 03/16/2022 mammogram, 03/03/2021 mammogram, and 02/26/2020 mammogram - [facility]. There are scattered areas of fibroglandular density in the left breast (category b / 25%-50% glandular tissue). There is a new cluster of round asymmetries in the left breast middle depth central to the nipple seen on the craniocaudal view only. This is confirmed with additional views. No other significant masses or calcifications are seen in the breast. IMPRESSION: INCOMPLETE: NEEDS ADDITIONAL IMAGING EVALUATION The new cluster of round asymmetries in the left breast most likely is a complicated cyst or clustered cysts but remains indeterminate. An ultrasound is recommended. This was performed immediately following this exam. Based on the Tyrer Cuzick model (a risk assessment model) the patient's lifetime risk is 5.1% and her 10 year risk is 2.0%. According to the ACR, ACS, and NCCN guidelines, an annual breast MRI exam along with mammogram is recommended if the patient's lifetime risk is 20% or greater. This exam was interpreted at Station ID: [id number]. NOTE: For mammograms, a report in lay terms will be sent to the patient. Approximately 15% of breast malignancies will not be visualized mammographically. In the management of a palpable breast mass, a negative mammogram must not discourage biopsy of a clinically suspicious lesion. Electronically Signed By: Sophia rahman/:04/13/2022 09:17:46 ACR BI-RADS Category 0: Incomplete 3340F
--- NOTE | 2022-04-13 | DI.US.S_ITS ---
LIMITED ULTRASOUND OF LEFT BREAST: 04/13/2022 CLINICAL: Patient returns today to evaluate a focal asymmetry in the left breast. Comparison is made to exams dated: 04/13/2022 mammogram, 03/16/2022 mammogram, 03/03/2021 mammogram, 02/26/2020 mammogram, and 02/19/2019 mammogram - [facility]. Color flow ultrasound of the left breast 12-1 o'clock region was performed. Goldman scale images of the real-time examination were reviewed. There is a cluster of probable cysts in the left breast at 1 o'clock middle depth. These cysts are oval, hypoechoic, with posterior acoustic enhancement and range in size from 0.4 cm to 0.6 cm. This correlates with mammography findings. Color flow imaging demonstrates that there is no vascularity present. In the axilla, there are lymph nodes with large fatty gauri and thin cortices. No suspicious cortical thickening. IMPRESSION: PROBABLY BENIGN The cluster of cysts in the left breast most likely is a complicated, septated cyst or a few separate complicated cysts and is probably benign. A follow-up left mammogram and an ultrasound in 6 months is recommended to demonstrate stability. Findings and recommendations were conveyed to the patient at time of exam. This exam was interpreted at Station ID: [id number]. Electronically Signed By: Sophia rahman/:04/13/2022 09:48:59 letter sent: Followup Recommended Ultrasound BI-RADS: 3 Probably benign
== END ==
PROVIDERS: PCP Student in an Organized Health Care Education/Training Program; Referring Provider Student in an Organized Health Care Education/Training Program; Visit Provider Student in an Organized Health Care Education/Training Program
DX: R92.8 Other abnormal and inconclusive findings on diagnostic imaging of breast (principal); N60.02 Solitary cyst of left breast
CPT/HCPCS: 76642; 77065; G0279

== ENCOUNTER → 2022-05-02 10:27 | Outpatient (CLI) | payer OTHER, SELFPAY ==
[2021-09-23 09:14] VITALS: BMI 34.4
--- NOTE | 2022-05-02 | DI.RAD.S_ITS ---
PROCEDURE: XR CHEST 2V INDICATIONS: US BREAT LT LIMITED ROUTINE TECHNIQUE: 2 views of the chest were acquired. COMPARISON: [facility], , XR CHEST 2V, 06/05/2020, 11:41. FINDINGS: Surgical changes and devices: None. Lungs and pleura: Lungs are clear. No pleural effusions or pneumothorax. Mediastinum: Mediastinal contours are normal. Heart size is normal. Bones and chest wall: No suspicious bony abnormalities. Soft tissues appear unremarkable. IMPRESSION: No acute cardiopulmonary pathology. Dictated by: Burton Martínez M.D. on 05/02/2022 at 13:37 Approved by: Burton Martínez M.D. on 05/02/2022 at 13:38
--- NOTE | 2022-05-02 10:54 | DI.US.S_ITS ---
PROCEDURE: US RENAL COMPLETE INDICATIONS: MALIGNANT NEOPLASM OF LEFT KIDNEY TECHNIQUE: Real-time scanning was performed of the kidneys and bladder, with image documentation. COMPARISON: None. FINDINGS: Kidneys: Kidneys are normal in size. Right kidney measures 10.4 cm long; left kidney measures 11.4 cm long. Right renal cortical thickness is 1.5 cm; left renal cortical thickness is 1.9 cm. Normal cortical echogenicity. No hydronephrosis. There is a 7 mm linear echogenic structure in the midpole right kidney, and a 6 mm linear echogenic focus in the midpole left kidney, both likely stones. Normal vascularity in each kidney. No suspicious solid mass lesions. Bladder: Pre-void bladder volume is 142 mL. Post-void residual is 0 mL. Pre-void images demonstrate no intraluminal masses or stones. On pre-void images, bilateral ureteral jets are noted with color Doppler interrogation. (Of note, ureteral jets may not be detectable in up to 25% of cases due to insufficient differences in specific gravity between ureteral and bladder urine). Miscellaneous: No free pelvic fluid. IMPRESSION: 1. Bilateral nonobstructing intrarenal calculi. 2. No evidence of obstructive uropathy. 3. No evidence of suspicious solid renal mass. Dictated by: Sophia Babb M.D. on 05/02/2022 at 15:57 Approved by: Sophia Babb M.D. on 05/02/2022 at 16:04
== END ==
PROVIDERS: PCP Student in an Organized Health Care Education/Training Program; Referring Provider Urology; Visit Provider Urology
DX: C64.2 Malignant neoplasm of left kidney, except renal pelvis (principal); N20.0 Calculus of kidney
CPT/HCPCS: 71046; 76770

== ENCOUNTER → 2022-05-18 08:14 | Outpatient (CLI) | payer OTHER, SELFPAY ==
[2021-09-23 09:14] VITALS: BMI 34.4
[2022-05-18 09:17] LABS: Hematocrit 37.1 % (36-46); Hemoglobin 12.3 g/dL (12.0-16.0); Mean Corpuscular HGB Conc 33.1 % (30-36); Mean Corpuscular Hemoglobin 26.7 PG (26-34); Mean Corpuscular Volume 80.6 fL (80-100); Platelet Count 250 X10^3/uL (150-400); Red Blood Cell Count 4.61 X10^6/uL (4.0-5.2); Red Cell Distribution Width 13.9 % (11.6-14.8); White Blood Cell Count 7.2 X10^3/uL (4.5-11.0)
[2022-05-18 09:21] LABS: Reticulocyte Count, Percent 1.9 % (1.1-2.6)
[2022-05-18 10:33] LABS: Ferritin 11 ng/mL (11-264)
== END ==
PROVIDERS: PCP Student in an Organized Health Care Education/Training Program; Referring Provider Student in an Organized Health Care Education/Training Program; Visit Provider Student in an Organized Health Care Education/Training Program
DX: D50.9 Iron deficiency anemia, unspecified (principal); L65.9 Nonscarring hair loss, unspecified
CPT/HCPCS: 36415; 82728; 85027; 85045

== ENCOUNTER → 2022-05-23 07:12 | Outpatient (CLI) | payer OTHER, SELFPAY ==
[2021-09-23 09:14] VITALS: BMI 34.4
--- NOTE | 2022-05-23 07:42 | DI.MRI.S_ITS ---
PROCEDURE: MR CERVICAL SPINE WO CON INDICATIONS: Right arm parasthesia TECHNIQUE: Noncontrast sagittal T1 spin echo and T2 fast spin echo, sagittal STIR, foraminal oblique sagittal T2 fast spin echo, and axial gradient echo or T2 fast spin echo through the cervical spine. COMPARISON: None. FINDINGS: Image quality: Excellent. Alignment and Curvature: There is normal bony alignment. Bone Marrow: Marrow demonstrates normal overall signal. Spinal Cord: Visualized spinal cord has normal size and signal. No cerebellar tonsillar herniation. Paraspinous Soft Tissues: No paravertebral masses. Prevertebral soft tissues are normal in thickness. C2-C3: No canal stenosis or foraminal stenosis. C3-C4: Mild disc bulge. No canal stenosis. Mild left uncovertebral joint osteophyte. Prominent left facet hypertrophy. Moderate to severe left foraminal narrowing with a degree of left foraminal C4 nerve root impingement. C4-C5: No central canal stenosis. AP diameter of the canal is approximately 13.4 mm. There is bilateral facet hypertrophy, left greater than right. No significant foraminal narrowing. C5-C6: Diffuse bilateral disc plus osteophyte, flattening the cord. AP diameter of the canal is approximately 9.5 mm. Bilateral uncovertebral joint hypertrophy and facet hypertrophy. Moderate to severe bilateral foraminal narrowing with a degree of bilateral C6 nerve root impingement. C6-C7: Diffuse disc plus osteophyte indenting on the cord. AP diameter of the canal is 9.1 mm. Bilateral uncovertebral joint hypertrophy and facet hypertrophy. Moderate to severe right foraminal narrowing with a degree of right foraminal C7 nerve root impingement. Mild to moderate left foraminal narrowing. C7-T1: No central canal stenosis. Moderate bilateral foraminal narrowing. IMPRESSION: 1. Diffuse spondylitic change with multilevel facet arthropathy and uncovertebral joint hypertrophy. 2. Canal stenosis is mild at C5-C6 and [id number] at C6-C7. 3. Multilevel foraminal narrowing as described above. Findings include moderate to severe left foraminal narrowing at C3-C4, moderate to severe bilateral foraminal narrowing at C5-C6, and moderate to severe right foraminal narrowing at C6-C7. Dictated by: Vaibhav Dick M.D. on 05/23/2022 at 10:57 Approved by: Vaibhav Dick M.D. on 05/23/2022 at 11:06
== END ==
PROVIDERS: PCP Student in an Organized Health Care Education/Training Program; Referring Provider Student in an Organized Health Care Education/Training Program; Visit Provider Student in an Organized Health Care Education/Training Program
DX: M47.812 Spondylosis without myelopathy or radiculopathy, cervical region (principal); M48.02 Spinal stenosis, cervical region; R20.2 Paresthesia of skin
CPT/HCPCS: 72141

== ENCOUNTER → 2022-09-07 16:59 | Outpatient (CLI) | payer OTHER, SELFPAY ==
[2021-09-23 09:14] VITALS: BMI 34.4
[2022-09-07 17:26] LABS: Hematocrit 35.4 % (36-46); Hemoglobin 12.2 g/dL (12.0-16.0); Mean Corpuscular HGB Conc 34.4 % (30-36); Mean Corpuscular Volume 81.3 fL (80-100); Platelet Count 264 X10^3/uL (150-400); Red Blood Cell Count 4.35 X10^6/uL (4.0-5.2); Red Cell Distribution Width 14.1 % (11.6-14.8); White Blood Cell Count 10.4 X10^3/uL (4.5-11.0)
[2022-09-07 17:56] LABS: Alanine Aminotransferase 25 IU/L (<35); Albumin 4.4 g/dL (3.5-5.0); Albumin Globulin Ratio 1.5 (1.0-2.8); Alkaline Phosphatase 104 U/L (38-126); Aspartate Aminotransferase 19 IU/L (14-36); BUN Creatinine Ratio 17.6 (6-22); Bilirubin Total 0.2 mg/dL (0.2-1.3); Blood Urea Nitrogen 13 mg/dL (7-17); Calcium 9.2 mg/dL (8.4-10.2); Carbon Dioxide 30 mmol/L (22-32); Chloride 101 mmol/L (98-107); Cholesterol 159 mg/dL (140-199); Estimated Glomerular Filt Rate > 60 mL/min (>60); Glucose 101 mg/dL (80-110); HDL Cholesterol 47 mg/dL (40-60); HEMOLYSIS < 15 (0-50); LDL Cholesterol Calculated 54 mg/dL (<100); Potassium 3.8 mmol/L (3.4-5.1); Sodium 139 mmol/L (137-145); Total Protein 7.4 g/dL (6.3-8.2); Triglycerides 292 mg/dL (35-150)
[2022-09-07 18:24] LABS: TSH w/ Reflex to FT4 2.59 uIU/mL (0.47-4.68)
[2022-09-09 00:16] LABS: Carbamazepine Tegretol Level 7.5 ug/mL (4.0-12.0)
== END ==
PROVIDERS: PCP Internal Medicine; Referring Provider Internal Medicine; Visit Provider Internal Medicine
DX: E03.9 Hypothyroidism, unspecified (principal); E78.2 Mixed hyperlipidemia; G50.0 Trigeminal neuralgia
CPT/HCPCS: 36415; 80053; 80061; 80156; 84443; 85027

== ENCOUNTER → 2022-09-23 16:25 | Outpatient (CLI) | payer OTHER, SELFPAY ==
[2021-09-23 09:14] VITALS: BMI 34.4
--- NOTE | 2022-09-23 16:47 | DI.RAD.S_ITS ---
PROCEDURE: XR LUMBAR SPINE MIN 4V INDICATIONS: BACK PAIN TECHNIQUE: 5 views of the lumbar spine were acquired, including bilateral oblique views. COMPARISON: [facility], , XR LUMBAR SPINE MIN 4V, 09/02/2020, 7:37. FINDINGS: Bones: 5 nonrib-bearing vertebrae are present. There is normal bony alignment. No vertebral body compression fractures. No suspicious bony lesions. There is severe disc space narrowing at the L4-5 level with degenerative endplate changes. More mild multilevel degenerative endplate changes are noted. Multilevel facet hypertrophy. Soft tissues: Overlying bowel gas pattern is normal. No suspicious soft tissue calcifications. Surgical clips are seen in the right upper quadrant. Oblique images: No pars defects. IMPRESSION: Multilevel spondylosis has mildly progressed when compared to the radiographs from 09/02/2020. No acute osseous abnormality. Approved by: Jonathon Navarrete M.D. on 09/23/2022 at 17:49
--- NOTE | 2022-09-23 16:47 | DI.RAD.S_ITS ---
PROCEDURE: XR CERVICAL SPINE 4V OR 5V INDICATIONS: NECK PAIN TECHNIQUE: Five views of the cervical spine acquired. COMPARISON: [facility], MR, MR CERVICAL SPINE WO CON, 05/23/2022, 7:19. FINDINGS: Bones: No fractures or dislocations to the C7 level. Multilevel disc space narrowing and degenerative endplate changes are most prominent at the C5-6 and C7-T1 levels. There is multilevel uncovertebral joint and facet hypertrophy. Oblique views are poorly positioned and the neural foramina are not well evaluated. Soft tissues: No prevertebral soft tissue swelling. IMPRESSION: Moderate multilevel spondylosis. No acute osseous abnormality. Oblique views are suboptimally positioned and the neural foramina are not well evaluated. Approved by: Jonathon Navarrete M.D. on 09/23/2022 at 17:51
== END ==
PROVIDERS: PCP Internal Medicine; Referring Provider Physical Medicine & Rehabilitation; Visit Provider Physical Medicine & Rehabilitation
DX: M47.22 Other spondylosis with radiculopathy, cervical region (principal); M48.02 Spinal stenosis, cervical region; M47.26 Other spondylosis with radiculopathy, lumbar region
CPT/HCPCS: 72050; 72110

== ENCOUNTER 2022-10-11 08:50 | Outpatient (CLI) | payer OTHER, SELFPAY ==
[2021-09-23 09:14] VITALS: BMI 34.4
[2022-10-11] VITALS (8 sets, daily range): BP systolic 116–146; BP diastolic 58–80; PULSE 74–79; RESP 12–21; TEMP 36.2; O2SAT 97–100
--- NOTE | 2022-10-11 08:53 | DI.RAD.S_ITS ---
PROCEDURE: PAIN C/T INTERLAMINAR INJECT INDICATIONS: SPINAL STENOSIS COMPARISON: [facility], CR, XR CERVICAL SPINE 4V OR 5V, 09/23/2022, 17:12. FINDINGS: 3 Fluoroscopic spot filming was performed to verify placement of spinal needles at the posterior C6-C7 level(s), as labeled on the films. Appropriate location(s) of the needle tip(s) was confirmed by injection of iodinated contrast. IMPRESSION: Intraoperative guidance provided. Dictated by: Mauricio Lizama M.D. on 10/11/2022 at 21:16 Approved by: Mauricio Lizama M.D. on 10/11/2022 at 21:19
[2022-10-11] MEDS: BUPIVACAINE 0.25% (PF) VIAL 2 ML INJ (09:48)
[2022-10-11] MEDS: IOPAMIDOL 15 ML VIAL 3 ML INJ (09:49)
[2022-10-11] MEDS: DEXAMETHASONE 10 MG/ML VIAL 30 MG INJ (09:49)
--- NOTE | 2022-10-11 11:13 | P.PCN_ITS ---
Date/Time/Diagnoses Date of procedure: 10/11/22 Time of procedure: 11:13 Pre-procedure diagnosis: 1. CERVICAL STENOSIS, 2. CERVICAL HNP WITH UPPER EXTREMITY RADICULAR FEATURES Post-procedure diagnosis: same Procedure Notes Procedure: 1. FLUORSCOPICALLY GUIDED CONTRAST CONTROLLED INTERLAMINAR EPIDURAL STEROID INJECTION - C6/7 TL JOHN Indications: Jojo is referred by Dr. Cummings for treatment of Cervical HNP with Upper Extremity Paresthesias. Physician: Javon Norris Total Fluoroscopy time (seconds): 35 Total sedation minutes: 15 Complications: none Procedure in detail & Post-procedure care: FINDINGS Cervical Stenosis due to disc deterioration and nerve root irritation and nerve root irritation DESCRIPTION OF PROCEDURE Fluoroscopically guided, contrast-controlled C6/7 translaminar epidural steroid injection with conscious sedation. Following review of allergy and review of potential side effects and complications, including, but not necessarily limited to, infection, allergic reaction, local tissue breakdown, temporary as well as permanent nerve injury, stroke, paralysis, and possible , the patient indicated that patient understood and agreed to proceed. An informed consent document was signed by the patient, witnessed by a nurse, and placed in the patient's chart. Additionally, other treatment options including modalities, medications, and physical therapy were reviewed with the patient. After review of previous anaesthesic history and IV conscious sedation the patient was deemed safe to proceed with today?s procedure with IV conscious sedation as ASA class II designation. Safety time-out was performed to confirm patient ID, procedure to be performed and site of procedure. IV sedation was accomplished with a combination of 2mg of Versed administered by the RN after DO order, titrated to patient comfort during the course of the procedure while the patient remained responsive to all verbal commands. In the prone position, following sterile prep and drape of the cervical region, the C6/7 translaminar space was identified fluoroscopically. The skin was anesthetized via a 25-gauge 1.5-inch needle with 1% lidocaine solution. At this point, a 25-gauge, 2.5-inch short bevel spinal needle was atraumatically introduced and advanced under fluoroscopic guidance into epidural space at the C6/7 translaminar space. Depth was confirmed on lateral view. Radiological data, including multiple fluoroscopic views of the cervical spine, reveal a spinal needle at the C6/7 translaminar space. Lateral views then show placement of the needle in the epidural space. Subsequent views show contrast material flowing superiorly and inferiorly in the epidural space. DSA fluoroscopy with live contrast injection, once again, confirmed no vascular or intrathecal uptake. At this point, using loss of resistance technique with saline and air, the epidural space was entered. Following negative aspiration, injection of approximately 1.5 cc of Isovue-200 with live fluoroscopy in the AP view confirmed epidural flow in the epidural space without vascular or intrathecal uptake observed. Subsequently, a test dose of 1 cc of 1% lidocaine solution was injected and patient was observed for two minutes without signs or symptoms of complications, including abdominal pain, shortness of breath, bilateral upper or lower extremity weakness, nausea and vomiting, prior to steroid injection. At this point, 3cc or 30mg of dexamethasone was then injected without incident. The patient tolerated the procedure well without signs or symptoms of compl ications prior to being transferred to the recovery area for further monitoring, The patient was then transferred to the recovery area where they were observed for an appropriate period of time after the injection. The patient reported a VAS score of 6 prior to the procedure and a post-procedure VAS of 0. POST OP INSTRUCTIONS The patient was provided a Pain Log to continue to record their response to the target-specific procedure prior to follow-up visit with the referring provider. Additionally, specific post-injection care instructions and a contact number to our office were provided if concerns arise regarding possible complications associated with the procedure are suspected.
--- NOTE | 2022-10-12 14:26 | PC.NURSE ---
Late entry for 10/11/22: Patient given 2 mg versed at 0942.
== END 2022-10-11 10:20 | disposition home or self-care (01) ==
PROVIDERS: PCP Internal Medicine; Referring Provider Physical Medicine & Rehabilitation; Visit Provider Physical Medicine & Rehabilitation
DX: M48.02 Spinal stenosis, cervical region (principal); M50.123 Cervical disc disorder at C6-C7 level with radiculopathy
CPT/HCPCS: 62321; 99152; J1100; J2250; J3490

== ENCOUNTER → 2022-10-12 08:46 | Outpatient (CLI) | payer OTHER, SELFPAY ==
[2021-09-23 09:14] VITALS: BMI 34.4
--- NOTE | 2022-10-12 08:46 | DI.MG.S_ITS ---
UNILATERAL LEFT DIGITAL DIAGNOSTIC MAMMOGRAM 3D/2D: 10/12/2022 CLINICAL: Short term follow up for the left breast. Comparison is made to exams dated: 04/13/2022 ultrasound, 04/13/2022 mammogram, 03/16/2022 mammogram, and 03/03/2021 mammogram - [facility]. There are scattered areas of fibroglandular density in the left breast (category b / 25%-50% glandular tissue). There is a stable cluster of round asymmetries in the left breast middle depth central to the nipple seen on the craniocaudal view only. This is seen in additional views. No other significant masses or calcifications are seen in the breast. IMPRESSION: INCOMPLETE: NEEDS ADDITIONAL IMAGING EVALUATION The stable cluster of round asymmetries in the left breast most likely clustered cysts and is indeterminate. An ultrasound is recommended. Based on the Tyrer Cuzick model (a risk assessment model) the patient's lifetime risk is 5.1% and her 10 year risk is 2.0%. According to the ACR, ACS, and NCCN guidelines, an annual breast MRI exam along with mammogram is recommended if the patient's lifetime risk is 20% or greater. This exam was interpreted at Station ID: [id number]. NOTE: For mammograms, a report in lay terms will be sent to the patient. Approximately 15% of breast malignancies will not be visualized mammographically. In the management of a palpable breast mass, a negative mammogram must not discourage biopsy of a clinically suspicious lesion. Electronically Signed By: Mack Morgan M.D. lc/:10/12/2022 10:01:42 ACR BI-RADS Category 0: Incomplete 3340F
--- NOTE | 2022-10-12 08:46 | DI.US.S_ITS ---
LIMITED ULTRASOUND OF LEFT BREAST: 10/12/2022 CLINICAL: 6 month follow-up of cysts. Comparison is made to exams dated: 10/12/2022 mammogram, 04/13/2022 ultrasound, 04/13/2022 mammogram, 03/16/2022 mammogram, and 03/03/2021 mammogram - [facility]. Color flow and real-time ultrasound of the left breast were performed. Goldman scale images of the real-time examination were reviewed. There is a cluster of oval cysts in the left breast at 12-1 o'clock middle depth. This cluster of oval cysts is hypoechoic with posterior acoustic enhancement. This correlates with mammography findings. Color flow imaging demonstrates that there is no vascularity present. Sizes range from 3-7mm, as before. IMPRESSION: PROBABLY BENIGN The cluster of suspected complicated oval cysts in the left breast is probably benign. Follow-up mammogram and ultrasound in 6 months is recommended. This exam was interpreted at Station ID: [id number]. Electronically Signed By: Mack Morgan M.D. lc/:10/12/2022 10:04:30 letter sent: Followup Recommended Ultrasound BI-RADS: 3 Probably benign
== END ==
PROVIDERS: PCP Internal Medicine; Referring Provider Internal Medicine; Visit Provider Student in an Organized Health Care Education/Training Program
DX: R92.8 Other abnormal and inconclusive findings on diagnostic imaging of breast (principal); N60.02 Solitary cyst of left breast
CPT/HCPCS: 76642; 77065; G0279

== ENCOUNTER 2022-10-25 13:01 | Outpatient (CLI) | payer OTHER, SELFPAY ==
[2022-10-19 11:14] VITALS: BMI 34.4
[2022-10-25] VITALS (8 sets, daily range): BP systolic 140–170; BP diastolic 66–83; PULSE 80–99; RESP 16–23; TEMP 36.4; O2SAT 98–100
--- NOTE | 2022-10-25 13:02 | DI.RAD.S_ITS ---
PROCEDURE: PAIN L/S FACET INJ/BLK 1ST GARIMA COMPARISON: None. INDICATIONS: SPONDYLOSIS FINDINGS: Access needle tips at the bilateral L3, L4 and L5 pedicles. Injection of small amount of contrast material demonstrates access needle tips are extra thecal. IMPRESSION: Access needle tips at bilateral L3, L4 and L5 pedicles for bilateral medial branch blocks. Dictated by: Sadie Hawkins MD, PhD on 10/25/2022 at 14:17 Approved by: Sadie Hawkins MD, PhD on 10/25/2022 at 14:17
[2022-10-25] MEDS: MIDAZOLAM 2 MG/2 ML VIAL IV (13:45)
[2022-10-25] MEDS: LIDOCAINE 1% 20 ML 5 ML INJ (13:51)
[2022-10-25] MEDS: BUPIVACAINE 0.5% (PF) 10 ML VIAL 5 ML INJ (13:51)
[2022-10-25] MEDS: IOPAMIDOL 15 ML VIAL 3 ML INJ (13:52)
--- NOTE | 2022-10-25 14:05 | P.PCN_ITS ---
Date/Time/Diagnoses Date of procedure: 10/25/22 Time of procedure: 14:05 Pre-procedure diagnosis: 1. FACET ARTHROPATHY Post-procedure diagnosis: same Procedure Notes Procedure: 1. BILATERAL- L4, L5 and S1 DIAGNOSTIC MB BLOCKS with LA Anesthetic Indications: Jojo is referred by Dr. Cummings for treatment of Bilateral Axial LBP. Physician: Javon Norris Total Fluoroscopy time (seconds): 13 Total sedation minutes: 15 Complications: none Procedure in detail & Post-procedure care: DESCRIPTION OF PROCEDURE Fluoroscopically guided, contrast-controlled bilateral L4, L5 and S1 medial branch blocks with 0.5cc of 0.5% Marcaine. Following review of allergy and review of potential side effects and complications, including, but not necessarily limited to, infection, allergic reaction, local tissue breakdown, nerve injury, paralysis, stroke and possible , the patient indicated that the patient understood and agreed to proceed. An informed consent document was signed by the patient, witnessed by a nurse, and placed in the patient's chart. After review of previous anaesthesic history and IV conscious sedation the patient was deemed safe to proceed with today's procedure with IV conscious sedation as ASA class II designation. Safety time-out was performed to confirm patient ID, procedure to be performed and site of procedure. IV sedation was accomplished with a combination of 2mg of Versed was administered by the RN after DO order, titrated to patient comfort during the course of the procedure while the patient remained responsive to all verbal commands In the prone position, following sterile prep and drape of the lumbar region, the right L4, L5 and S1 anatomical location of the medial branch of the dorsal ramus was identified fluoroscopically. Subsequently an anesthetic skin wheal using 1% lidocaine solution was initiated at each of the anatomical spots. Subsequently then a 22-gauge 3.5-inch spinal needle was atraumatically introduced and advanced under fluoroscopic guidance at each of the corresponding sites at the right L4, L5 and S1 MB. After negative aspiration, 0.2cc of Isovue 200 was injected, confirming placement without vascular or intrathecal uptake. Subsequently then 0.5cc of 0.5% Marcaine solution was injected at each of the corresponding sites at the right L4, L5 and S1 medial branch locations. The identical procedure was replicated on the left. The patient tolerated the procedure well without signs or symptoms of complications prior to transfer to the recovery area continued monitoring without incident. Post-procedure, the patient was monitored initiating provocative activities to measure the amount of relief from block of the facetogenic pain. The patient reported a VAS of 8 prior to the procedure and a post-procedure VAS of 1. It has been a pleasure to assist in the diagnostic and therapeutic care of your patient. POST OP INSTRUCTIONS The patient was provided with a Pain Log to complete over the next several hours and subsequent days prior to the patient's follow up with the ordering physician. If the patient has farm machine tender relief to the solution applied, then they may be a candidate for medial branch rhizotomy. The patient is aware, was provided, once again, with a Pain Log and will follow up with the referring physician for review and clinical correlation
== END 2022-10-25 14:22 | disposition home or self-care (01) ==
LOC: RAD 13:01
PROVIDERS: PCP Internal Medicine; Referring Provider Physical Medicine & Rehabilitation; Visit Provider Physical Medicine & Rehabilitation
DX: M47.816 Spondylosis without myelopathy or radiculopathy, lumbar region (principal); M47.817 Spondylosis without myelopathy or radiculopathy, lumbosacral region
CPT/HCPCS: 64493; 64494; 99152; J2250

== ENCOUNTER 2022-11-29 07:26 | Outpatient (CLI) | payer OTHER, SELFPAY ==
[2022-10-19 11:14] VITALS: BMI 34.4
[2022-11-29] VITALS (10 sets, daily range): BP systolic 119–142; BP diastolic 75–90; PULSE 64–73; RESP 14–22; TEMP 36.5; O2SAT 95–99
--- NOTE | 2022-11-29 07:27 | DI.RAD.S_ITS ---
PROCEDURE: PAIN L/S FACET INJ/BLK 1ST GARIMA COMPARISON: [facility], , PAIN L/S FACET INJ/BLK 1ST GARIMA, 10/25/2022, 13:50. INDICATIONS: SPONDYLOSIS FINDINGS: Fluoroscopic spot filming was performed to verify placement of spinal needles on both sides at the L4, L5, and S1 levels, as labeled on the films. Appropriate location of the needle tips was confirmed by injection of iodinated contrast. IMPRESSION: Intraprocedural examination demonstrating appropriate positions of the needles. Dictated by: Juan Jose Mcbride M.D. on 11/29/2022 at 14:58 Approved by: Juan Jose Mcbride M.D. on 11/29/2022 at 14:58
[2022-11-29] MEDS: MIDAZOLAM 2 MG/2 ML VIAL IV (08:10)
[2022-11-29] MEDS: MIDAZOLAM 2 MG/2 ML VIAL 1 MG IV ×2 (08:15→08:20)
[2022-11-29] MEDS: LIDOCAINE 1% 20 ML 5 ML INJ (08:26)
[2022-11-29] MEDS: LIDOCAINE 2% INJ MDV 20ML 5 ML INJ (08:26)
[2022-11-29] MEDS: IOPAMIDOL 15 ML VIAL 3 ML INJ (08:26)
--- NOTE | 2022-11-29 08:43 | P.PCN_ITS ---
Date/Time/Diagnoses Date of procedure: 11/29/22 Time of procedure: 08:43 Pre-procedure diagnosis: 1. FACET ARTHROPATHY Post-procedure diagnosis: same Procedure Notes Procedure: 1. BILATERAL- L4, L5 and S1 DIAGNOSTIC MB BLOCKS with SA Anesthetic Indications: Jojo is referred by Dr. Cummings for treatment of Bilateral Axial LBP. Physician: Javon Norris Total Fluoroscopy time (seconds): 13 Total sedation minutes: 24 Complications: none Procedure in detail & Post-procedure care: DESCRIPTION OF PROCEDURE Fluoroscopically guided, contrast-controlled bilateral L4, L5 and S1 medial branch blocks with 0.5cc of 2% Lidocaine. Following review of allergy and review of potential side effects and complications, including, but not necessarily limited to, infection, allergic reaction, local tissue breakdown, nerve injury, paralysis, stroke and possible , the patient indicated that the patient understood and agreed to proceed. An informed consent document was signed by the patient, witnessed by a nurse, and placed in the patient's chart. After review of previous anaesthesic history and IV conscious sedation the patient was deemed safe to proceed with today's procedure with IV conscious sedation as ASA class II designation. Safety time-out was performed to confirm patient ID, procedure to be performed and site of procedure. IV sedation was accomplished with a combination of 4mg of Versed was administered by the RN after DO order, titrated to patient comfort during the course of the procedure while the patient remained responsive to all verbal commands In the prone position, following sterile prep and drape of the lumbar region, the right L4, L5 and S1 anatomical location of the medial branch of the dorsal ramus was identified fluoroscopically. Subsequently an anesthetic skin wheal using 1% lidocaine solution was initiated at each of the anatomical spots. Subsequently then a 22-gauge 3.5-inch spinal needle was atraumatically introduced and advanced under fluoroscopic guidance at each of the corresponding sites at the right L4, L5 and S1 MB. After negative aspiration, 0.2cc of Isovue 200 was injected, confirming placement without vascular or intrathecal uptake. Subsequently then 0.5cc of 2% Lidocaine solution was injected at each of the corresponding sites at the right L4, L5 and S1 medial branch locations. The identical procedure was replicated on the left. The patient tolerated the procedure well without signs or symptoms of complications prior to transfer to the recovery area continued monitoring without incident. Post-procedure, the patient was monitored initiating provocative activities to measure the amount of relief from block of the facetogenic pain. The patient reported a VAS of 7 prior to the procedure and a post-procedure VAS of 1. It has been a pleasure to assist in the diagnostic and therapeutic care of your patient. POST OP INSTRUCTIONS The patient was provided with a Pain Log to complete over the next several hours and subsequent days prior to the patient's follow up with the ordering physician. If the patient has spring manufacturing set up technician relief to the solution applied, then they may be a candidate for medial branch rhizotomy. The patient is aware, was provided, once again, with a Pain Log and will follow up with the referring physician for review and clinical correlation
== END 2022-11-29 08:55 | disposition home or self-care (01) ==
LOC: RAD 07:27
PROVIDERS: PCP Internal Medicine; Referring Provider Physical Medicine & Rehabilitation; Visit Provider Physical Medicine & Rehabilitation
DX: M47.816 Spondylosis without myelopathy or radiculopathy, lumbar region (principal); M47.817 Spondylosis without myelopathy or radiculopathy, lumbosacral region
CPT/HCPCS: 64493; 64494; 99152; 99153; J2250

== ENCOUNTER → 2022-12-22 14:11 | Outpatient (CLI) | payer OTHER, SELFPAY ==
[2022-10-19 11:14] VITALS: BMI 34.4
== END ==
PROVIDERS: Family Provider Internal Medicine; PCP Internal Medicine; Referring Provider Physical Medicine & Rehabilitation; Visit Provider Physical Medicine & Rehabilitation
DX: M48.02 Spinal stenosis, cervical region (principal); M54.12 Radiculopathy, cervical region
CPT/HCPCS: 95886; 95913

== ENCOUNTER 2023-01-12 09:48 | Outpatient (CLI) | payer OTHER, SELFPAY ==
[2022-10-19 11:14] VITALS: BMI 34.4
[2023-01-12] VITALS (14 sets, daily range): BP systolic 115–160; BP diastolic 70–94; PULSE 74–87; RESP 15–22; O2SAT 95–99
--- NOTE | 2023-01-12 09:50 | DI.RAD.S_ITS ---
PROCEDURE: PAIN L/S MED/LAT N RFA BILAT INDICATIONS: SPONDYLOSIS COMPARISON: [facility], , PAIN L/S FACET INJ/BLK 1ST GARIMA, 11/29/2022, 8:22. FINDINGS: Fluoroscopic spot filming was performed to verify placement of spinal needles on both sides at the L4, L5, and S1 levels, as labeled on the films. IMPRESSION: Images during rhizotomy within normal limits. Dictated by: Juan Jose Mcbride M.D. on 01/12/2023 at 16:25 Approved by: Juan Jose Mcbride M.D. on 01/12/2023 at 16:25
[2023-01-12] MEDS: fentaNYL 100 MCG/2 ML INJ 50 MCG IV ×2 (11:37→12:09)
[2023-01-12] MEDS: MIDAZOLAM 2 MG/2 ML VIAL IV ×2 (11:37→12:00)
[2023-01-12] MEDS: BUPIVACAINE 0.5% (PF) 10 ML VIAL 5 ML INJ (11:42)
[2023-01-12] MEDS: LIDOCAINE 1% 20 ML 5 ML INJ (11:43)
--- NOTE | 2023-01-12 12:25 | P.PCN_ITS ---
Date/Time/Diagnoses Date of procedure: 01/12/23 Time of procedure: 12:25 Pre-procedure diagnosis: 1. RECALCITRANT FACET ARTHROPATHY Post-procedure diagnosis: same Procedure Notes Procedure: 1. BILATERAL L4 AND L5 MEDIAL BRANCH RADIOFREQUENCY NEUROTOMY AND S1 DORSAL RAMUS BRANCH RADIOFREQUENCY NEUROTOMY Indications: Jojo is referred by Dr. Cummings for treatment of facet arthropathy. Physician: Javon Norris Total Fluoroscopy time (seconds): 19 Total sedation minutes: 41 Complications: none Procedure in detail & Post-procedure care: DESCRIPTION OF PROCEDURE Bilateral L4 and L5 medial branch radiofrequency neurotomy and bilateral S1 dorsal ramus radiofrequency neurotomy under fluoroscopy with conscious sedation. The patient is well known to this clinic having undergone previous facet injections with good but temporary relief. The patient has experienced appropriate, concordant relief with previous facet and median branch blocks but the patient's pain has been recalcitrant to further conservative measures. Therefore, based upon the patient's relief and persistent symptoms, the patient is considered an appropriate candidate for facet rhizotomy. All of the patient's questions regarding the risks versus benefits of the procedure, including, but not limited to, bleeding, infection, temporary as well as lasting nerve injury, paralysis, stroke, and , as well treatment alternatives were answered to satisfaction. After obtaining informed consent, denial of pertinent drug allergies, as well as being made aware of the potential risks of bleeding, infection, spinal cord trauma, paralysis, temporary and permanent nerve damage, seizure, stroke, and possible , the patient was brought to the fluoroscopy suite and positioned prone on the fluoroscopy table. The lumbar region was prepped in usual sterile fashion and covered with a fenestrated drape in the usual sterile fashion. Appropriate monitors applied including pulse oximeter, pulse, and blood pressure for regular monitoring throughout the procedure. After review of previous anaesthesic history and IV conscious sedation the patient was deemed safe to proceed with today's procedure with IV conscious sedation as ASA class II designation. Safety time-out was performed to confirm patient ID, procedure to be performed and site of procedure. IV sedation was accomplished with a combination of 4mg of Versed and 100mcg of Fentanyl administered by the RN after DO order, titrated to patient comfort during the course of the procedure while the patient remained responsive to all verbal commands. After local infiltration using 1% lidocaine, under fluoroscopic guidance, a 10- cm RF insulated needle with a 10-mm active tip was positioned parallel to the junction of the right sacral ala and the superior articulating process where the S1 dorsal ramus resides. Needle placement was confirmed with motor stimulation of .5v on the right which produced local stimulation without radicular component. The stimulation was then increased to 2v with, once again, only local multifidus stimulation without radicular component. The needle was then removed and the identical procedure was performed along the length of the right L5 medial branch with motor stimulation at .7v on the right. The identical procedure was once again performed along the length of the right L4 medial branch with motor stimulation of .5v on the right. The medial branches were then anesthetised with 0.5% Marcaine. This was then followed by two discreet lesions performed at 80 degrees Celsius for 90 seconds each. The identical procedure was repeated on the left. The patient tolerated the procedure well without signs or symptoms of complications prior to transfer to the recovery area continued monitoring without incident. The patient was then transferred to the recovery area where they were observed for an appropriate period of time after the injection. The patient reported a VAS score of 8 prior to the procedure and a post-procedure VAS of 1. POST OP INSTRUCTIONS The patient was provided a Pain Log to continue to record the patient's response to the target-specific procedure prior to the patient's follow-up visit with the referring physician. Additionally, specific post-injection care instructions and a contact number to our office were provided if concerns arise regarding possible complications associated with the procedure are suspected.
== END 2023-01-12 12:45 | disposition home or self-care (01) ==
PROVIDERS: Family Provider Internal Medicine; PCP Internal Medicine; Referring Provider Physical Medicine & Rehabilitation; Visit Provider Physical Medicine & Rehabilitation
DX: M47.816 Spondylosis without myelopathy or radiculopathy, lumbar region (principal)
CPT/HCPCS: 64635; 64636; 99152; 99153; J2250; J3010

== ENCOUNTER → 2023-04-01 11:13 | Outpatient (CLI) | payer OTHER, SELFPAY ==
[2022-10-19 11:14] VITALS: BMI 34.4
--- NOTE | 2023-04-01 | DI.MRI.S_ITS ---
PROCEDURE: MR ANKLE LT WO CON INDICATIONS: Capsulitis of left ankle TECHNIQUE: Noncontrast sagittal T1 spin echo and T2 fast spin echo with fat saturation, axial proton density fast spin echo and T2 fast spin echo with fat saturation, coronal T1 spin echo and T2 fast spin echo with fat saturation through the ankle/hindfoot. COMPARISON: [facility] [place], CR, XR ANKLE 3+ VIEWS LEFT, 03/21/2023, 12:57. FINDINGS: Image quality: Excellent. Bones and joints: No bone marrow contusions or fractures. No hindfoot coalitions. No osteochondral injuries of the talar dome. Moderate degenerative changes are seen throughout the tarsometatarsal joints. Degenerative changes also noted at the navicular cuneiform and talonavicular joints. Small amount of tibiotalar joint fluid is seen posteriorly. No significant capsular thickening is seen. Small nonedematous plantar calcaneal enthesophyte. Medial structures: The deep and superficial layers of the deltoid ligament appear intact. The spring ligament components are intact. Mild posterior tibialis tenosynovitis. The flexor digitorum longus and flexor hallucis longus tendons are intact. The posterior tibial neurovascular bundle appears normal within the tarsal tunnel, without extrinsic mass effect. Lateral structures: Remote prior low-grade sprains of the anterior talofibular ligament and the calcaneofibular ligament. The posterior talofibular ligament is intact. The anterior and posterior tibiofibular ligaments appear intact. The peroneus longus and brevis tendons demonstrate mild tenosynovitis. The sinus tarsi demonstrates normal fatty signal. Anterior structures: The tibialis anterior, extensor hallucis longus, and extensor digitorum longus tendons appear intact. The dorsal talonavicular ligament appears intact. Posterior and plantar structures: Achilles tendon is intact. The proximal plantar fascia is mildly thickened. No abductor digiti quinti muscle atrophy to suggest Baker neuropathy. IMPRESSION: 1. Moderate degenerative changes throughout the midfoot. 2. Remote prior low-grade sprains of the anterior talofibular ligament and the calcaneofibular ligament. 3. Mild tenosynovitis of the peroneus brevis and longus tendons. 4. Mild distal posterior tibialis tenosynovitis. 5. Chronic mild proximal plantar fasciitis. Approved by: Jonathon Navarrete M.D. on 04/04/2023 at 11:05
== END ==
LOC: MRI 11:14
PROVIDERS: Family Provider Internal Medicine; PCP Internal Medicine; Referring Provider Podiatrist; Visit Provider Podiatrist
DX: M77.52 Other enthesopathy of left foot and ankle (principal); S93.492A Sprain of other ligament of left ankle, initial encounter; S93.432A Sprain of tibiofibular ligament of left ankle, initial encounter; M65.872 Other synovitis and tenosynovitis, left ankle and foot; M72.2 Plantar fascial fibromatosis
CPT/HCPCS: 73721

== ENCOUNTER → 2023-04-25 08:38 | Outpatient (CLI) | payer OTHER, SELFPAY ==
[2022-10-19 11:14] VITALS: BMI 34.4
--- NOTE | 2023-04-25 | DI.MG.S_ITS ---
BILATERAL DIGITAL DIAGNOSTIC MAMMOGRAM 3D/2D SHORT-TERM FOLLOW-UP: 04/25/2023 CLINICAL: Short term follow up of the left breast, due for bilateral imaging. Comparison is made to exams dated: 10/12/2022 mammogram, 04/13/2022 mammogram, 03/16/2022 mammogram, and 03/03/2021 mammogram - [facility]. There are scattered areas of fibroglandular density in both breasts (category b / 25%-50% glandular tissue). There is a stable cluster of round asymmetries in the left breast middle depth central to the nipple seen on the craniocaudal view only. This finding is stable since 04/13/2022. No other significant masses, calcifications, or other findings are seen in either breast. IMPRESSION: INCOMPLETE: NEEDS ADDITIONAL IMAGING EVALUATION Left breast asymmetries in the central middle depth seen on CC view only, stable since 04/13/2022. An ultrasound is recommended for further evaluation and is scheduled to immediately follow this examination. Based on the Tyrer Cuzick model (a risk assessment model) the patient's lifetime risk is 5.0% and her 10 year risk is 2.0%. According to the ACR, ACS, and NCCN guidelines, an annual breast MRI exam along with mammogram is recommended if the patient's lifetime risk is 20% or greater. This exam was interpreted at Station ID: [id number]. NOTE: For mammograms, a report in lay terms will be sent to the patient. Approximately 15% of breast malignancies will not be visualized mammographically. In the management of a palpable breast mass, a negative mammogram must not discourage biopsy of a clinically suspicious lesion. Electronically Signed By: Sol Castellano M.D., PH.D eb/:04/25/2023 09:21:41 ACR BI-RADS Category 0: Incomplete 3340F
--- NOTE | 2023-04-25 08:39 | DI.US.S_ITS ---
LIMITED ULTRASOUND OF LEFT BREAST: 04/25/2023 CLINICAL: 6 month follow-up of cluster of cysts. Comparison is made to exams dated: 04/25/2023 mammogram, 10/12/2022 ultrasound, 10/12/2022 mammogram, 04/13/2022 ultrasound, 04/13/2022 mammogram, and 03/16/2022 mammogram - [facility]. Color flow and real-time ultrasound of the left breast 12 o'clock region were performed. There are two adjacent oval hypoechoic masses with circumscribed margins in the left breast at 12 o'clock, 4 cm from the nipple measuring 7 x 4 x 5 mm and 5 x 2 x 4 mm, stable since 04/13/2022. There is posterior acoustic enhancement. This findings correlate with mammography findings. Color flow imaging demonstrates that there is no vascularity present. IMPRESSION: PROBABLY BENIGN Left breast 7 mm and 5 mm adjacent oval circumscribed masses at 12 o'clock, stable since 04/13/2022. Findings likely represent complicated cysts and are probably benign. Recommend follow-up mammogram and an ultrasound in 12 months to demonstrate 2 year stability. Patient will be due for bilateral mammogram at that time. Findings and recommendations were conveyed to the patient during today's evaluation. This exam was interpreted at Station ID: [id number]. Electronically Signed By: Sol Castellano M.D., PH.D eb/:04/25/2023 09:40:27 letter sent: Followup Recommended Ultrasound BI-RADS: 3 Probably benign
== END ==
PROVIDERS: Family Provider Internal Medicine; PCP Internal Medicine; Referring Provider Internal Medicine; Visit Provider Internal Medicine
DX: R92.8 Other abnormal and inconclusive findings on diagnostic imaging of breast (principal); R92.323 Mammographic fibroglandular density, bilateral breasts; N63.15 Unspecified lump in the right breast, overlapping quadrants
CPT/HCPCS: 76642; 77066; G0279

== ENCOUNTER → 2023-05-01 08:56 | Outpatient (CLI) | payer OTHER, SELFPAY ==
[2022-10-19 11:14] VITALS: BMI 34.4
--- NOTE | 2023-05-01 | DI.RAD.S_ITS ---
PROCEDURE: XR CHEST 1V INDICATIONS: history of renal cell cancer, eval for lung lesions TECHNIQUE: One view of the chest was acquired. COMPARISON: [facility], CR, XR CHEST 2V, 05/02/2022, 10:34. [facility], CR, XR CHEST 2V, 06/05/2020, 11:41. FINDINGS: Surgical changes and devices: Chest radiograph 05/02/2022. Lungs and pleura: Lungs are clear. No pleural effusions or pneumothorax. Mediastinum: Mediastinal contours appear normal. Heart size is normal. Bones and chest wall: No suspicious bony lesions. Overlying soft tissues appear unremarkable. IMPRESSION: No acute cardiopulmonary abnormality is seen. If there is clinical concern for lung metastasis, consider further evaluation with cross-sectional imaging such as CT chest. Approved by: Sol Castellano M.D. on 05/01/2023 at 12:30
--- NOTE | 2023-05-01 | DI.CT.S_ITS ---
PROCEDURE: CT ABDOMEN PELVIS W CON INDICATIONS: MALIGNANT NEOPLASM OF LEFT KIDNEY TECHNIQUE: After the administration of intravenous contrast, axial sections acquired from the lung bases to the pubic symphysis. Coronal and sagittal reformats were performed. For radiation dose reduction, the following was used: automated exposure control, adjustment of mA and/or kV according to patient size. COMPARISON: [facility], CT, CT ABDOMEN WO/W CON, 03/26/2020, 6:55. [facility], CT, ABDOMEN/PELVIS WITH CONTRAST, 10/18/2012, 7:52. FINDINGS: Image quality: Diagnostic. Lower Chest: No significant findings. ABDOMEN: Liver: An indistinct, roughly 1.0 cm hypervascular focus in segment 6. No other liver findings. Gallbladder: Surgically absent. Biliary ducts: Nondilated. Pancreas: Normal. Spleen: Normal size. Adrenal Glands: No nodules. Kidneys and Ureters: There is been surgical resection of the left upper pole renal mass. Short linear hyperdense surgical changes present along the cortical margin. No suspicious soft tissue masses in the area. The kidneys enhance symmetrically. No new mass, hydronephrosis, or nephrolithiasis. Ureters are normal caliber without calcifications. Stomach and Bowel: There is moderate mucosal hyperemia in the cecum and proximal colon, along with near circumferential fatty infiltration of the wall. The remainder of the colon is moderately decompressed and there is long segment fatty infiltration seen into the sigmoid colon. Small bowel loops are normal. Stomach is within normal limits. Peritoneum: No suspicious retroperitoneal, intraperitoneal free fluid or free air. Ventral Wall: No hernia. Abdominal Nodes: There are several small round mesenteric lymph nodes surrounding the cecum and ascending colon extending centrally in the mesentery. No other significant mesenteric adenopathy and no retroperitoneal adenopathy. Vessels: Aorta, IVC, and other prominent vasculature appears normal caliber. PELVIS: Pelvic Organs: Probable prior supracervical hysterectomy. Residual ovarian tissue is atrophic. Small cyst associated with the right ovary. Bladder: Decompressed. Pelvic Nodes: No enlarged lymph nodes. Miscellaneous: No inguinal hernias are seen. Bones: No aggressive osseous abnormality. IMPRESSION: 1. Surgical excision of left upper pole renal mass. 2. No evidence of residual or recurrent disease. 3. Abnormal mucosal hyperemia and fatty infiltration of the proximal colon wall with adjacent borderline adenopathy. Findings are nonspecific and can be seen in infection, inflammation, less likely neoplasm given long segment. Consider Crohn's disease. 4. 1.0 cm indistinct arterially enhancing lesion in the posterior liver most suggestive of flash fill hemangioma, but not visible previously, potentially due to lack of similar IV contrast phase. Continued attention on follow-up is recommended. Dictated by: Sophia Babb M.D. on 05/01/2023 at 18:18 Approved by: Sophia Babb M.D. on 05/01/2023 at 18:34
[2023-05-01 09:25] LABS: Estimated Glomerular Filt Rate > 60 mL/min (>60)
== END ==
PROVIDERS: Radiology Diagnostic Radiology; PCP Internal Medicine; Referring Provider Physician Assistant; Visit Provider Physician Assistant
DX: C64.2 Malignant neoplasm of left kidney, except renal pelvis (principal); K59.89 Other specified functional intestinal disorders; K76.9 Liver disease, unspecified
CPT/HCPCS: 36415; 71045; 74177; 82565; Q9967

== ENCOUNTER 2023-05-02 08:43 | Outpatient (CLI) | payer OTHER, SELFPAY ==
[2022-10-19 11:14] VITALS: BMI 34.4
[2023-05-02] VITALS (8 sets, daily range): BP systolic 126–152; BP diastolic 69–92; PULSE 70–75; RESP 13–20; TEMP 36.1; O2SAT 97–100
--- NOTE | 2023-05-02 09:15 | DI.RAD.S_ITS ---
PROCEDURE: PAIN C/T INTERLAMINAR INJECT INDICATIONS: RADICULOPATHY COMPARISON: [facility], , PAIN C/T INTERLAMINAR INJECT, 10/11/2022, 9:46. FINDINGS: Fluoroscopic spot filming was performed to verify placement of spinal needles at the C6-C7 level(s), as labeled on the films. Appropriate location(s) of the needle tip(s) was confirmed by injection of iodinated contrast. IMPRESSION: Intra procedural examination demonstrating appropriate positions of the needles. Dictated by: Pavel Gamboa M.D. on 05/02/2023 at 10:58 Approved by: Pavel Gamboa M.D. on 05/02/2023 at 10:58
[2023-05-02] MEDS: MIDAZOLAM 2 MG/2 ML VIAL IV (09:35)
[2023-05-02] MEDS: BUPIVACAINE 0.25% (PF) VIAL 2 ML INJ (09:38)
[2023-05-02] MEDS: DEXAMETHASONE 10 MG/ML VIAL 20 MG INJ (09:38)
[2023-05-02] MEDS: iopamidoL 15 ML VIAL 3 ML INJ (09:38)
--- NOTE | 2023-05-02 09:59 | P.PCN_ITS ---
Date/Time/Diagnoses Date of procedure: 05/02/23 Time of procedure: 09:59 Pre-procedure diagnosis: 1. CERVICAL STENOSIS, 2. CERVICAL HNP WITH UPPER EXTREMITY RADICULAR FEATURES Post-procedure diagnosis: same Procedure Notes Procedure: 1. FLUORSCOPICALLY GUIDED CONTRAST CONTROLLED INTERLAMINAR EPIDURAL STEROID INJECTION - C6/7 TL JOHN Indications: Jojo is referred by Dr. Cummings for treatment of Cervical HNP with Upper Extremity Paresthesias. Physician: Javon Norris Total Fluoroscopy time (seconds): 42 Total sedation minutes: 19 Complications: none Procedure in detail & Post-procedure care: FINDINGS Cervical Stenosis due to disc deterioration and nerve root irritation and nerve root irritation DESCRIPTION OF PROCEDURE Fluoroscopically guided, contrast-controlled C6/7 translaminar epidural steroid injection with conscious sedation. Following review of allergy and review of potential side effects and complications, including, but not necessarily limited to, infection, allergic reaction, local tissue breakdown, temporary as well as permanent nerve injury, stroke, paralysis, and possible , the patient indicated that patient understood and agreed to proceed. An informed consent document was signed by the patient, witnessed by a nurse, and placed in the patient's chart. Additionally, other treatment options including modalities, medications, and physical therapy were reviewed with the patient. After review of previous anaesthesic history and IV conscious sedation the patient was deemed safe to proceed with today?s procedure with IV conscious sedation as ASA class II designation. Safety time-out was performed to confirm patient ID, procedure to be performed and site of procedure. IV sedation was accomplished with a combination of 2mg of Versed administered by the RN after DO order, titrated to patient comfort during the course of the procedure while the patient remained responsive to all verbal commands. In the prone position, following sterile prep and drape of the cervical region, the C6/7 translaminar space was identified fluoroscopically. The skin was anesthetized via a 25-gauge 1.5-inch needle with 1% lidocaine solution. At this point, a 25-gauge, 2.5-inch short bevel spinal needle was atraumatically introduced and advanced under fluoroscopic guidance into epidural space at the C6/7 translaminar space. Depth was confirmed on lateral view. Radiological data, including multiple fluoroscopic views of the cervical spine, reveal a spinal needle at the C6/7 translaminar space. Lateral views then show placement of the needle in the epidural space. Subsequent views show contrast material flowing superiorly and inferiorly in the epidural space. DSA fluoroscopy with live contrast injection, once again, confirmed no vascular or intrathecal uptake. At this point, using loss of resistance technique with saline and air, the epidural space was entered. Following negative aspiration, injection of approximately 1.5 cc of Isovue-200 with live fluoroscopy in the AP view confirmed epidural flow in the epidural space without vascular or intrathecal uptake observed. Subsequently, a test dose of 1 cc of 1% lidocaine solution was injected and patient was observed for two minutes without signs or symptoms of complications, including abdominal pain, shortness of breath, bilateral upper or lower extremity weakness, nausea and vomiting, prior to steroid injection. At this point, 2cc or 20mg of dexamethasone was then injected without incident. The patient tolerated the procedure well without signs or symptoms of compl ications prior to being transferred to the recovery area for further monitoring, The patient was then transferred to the recovery area where they were observed for an appropriate period of time after the injection. The patient reported a VAS score of 6 prior to the procedure and a post-procedure VAS of 0. POST OP INSTRUCTIONS The patient was provided a Pain Log to continue to record their response to the target-specific procedure prior to follow-up visit with the referring provider. Additionally, specific post-injection care instructions and a contact number to our office were provided if concerns arise regarding possible complications associated with the procedure are suspected.
== END 2023-05-02 10:06 | disposition home or self-care (01) ==
LOC: RAD 08:43
PROVIDERS: PCP Internal Medicine; Referring Provider Physical Medicine & Rehabilitation; Visit Provider Physical Medicine & Rehabilitation
DX: M48.02 Spinal stenosis, cervical region (principal); M50.123 Cervical disc disorder at C6-C7 level with radiculopathy
CPT/HCPCS: 62321; 99152; J1100; J2250; J3490

== ENCOUNTER → 2023-06-27 11:16 | Outpatient (CLI) | payer OTHER, SELFPAY ==
[2022-10-19 11:14] VITALS: BMI 34.4
[2023-06-27 12:28] LABS: Add Manual Diff / Slide Review NO; Basophils Absolute Auto 0 /uL (0-100); Basophils Percent Auto 0.5 % (0-2); Eosinophils Absolute Auto 0 /uL (0-450); Eosinophils Percent Auto 0.1 % (2-4); Hematocrit 38.3 % (36-46); Hemoglobin 12.6 g/dL (12.0-16.0); Lymphocytes Absolute Auto 1900 /uL (1100-4500); Lymphocytes Percent Auto 20.8 % (25-40); Mean Corpuscular Volume 81.9 fL (80-100); Monocytes Absolute Auto 400 /uL (0-900); Monocytes Percent Auto 4.5 % (3-14); Neutrophils Absolute Auto 6800 /uL (1500-7000); Neutrophils Percent Auto 74.1 % (50-75); Platelet Count 292 X10^3/uL (150-400); Red Blood Cell Count 4.67 X10^6/uL (4.0-5.2); Red Cell Distribution Width 14.1 % (11.6-14.8); White Blood Cell Count 9.2 X10^3/uL (4.5-11.0)
[2023-06-27 12:46] LABS: BUN Creatinine Ratio 15.7 (6-22); Blood Urea Nitrogen 11 mg/dL (7-17); Calcium 9.2 mg/dL (8.4-10.2); Carbon Dioxide 25 mmol/L (22-32); Chloride 103 mmol/L (98-107); Estimated Glomerular Filt Rate > 60 mL/min (>60); Glucose 124 mg/dL (80-110); HEMOLYSIS < 15 (0-50); Potassium 4.3 mmol/L (3.4-5.1); Sodium 136 mmol/L (137-145)
[2023-06-27 12:49] LABS: Hemoglobin A1C% w Est Avg Glu 5.4 % (4.0-6.0)
== END ==
PROVIDERS: PCP Internal Medicine; Referring Provider Orthopaedic Surgery Orthopaedic Surgery of the Spine; Visit Provider Orthopaedic Surgery Orthopaedic Surgery of the Spine
DX: Z01.812 Encounter for preprocedural laboratory examination (principal); R73.9 Hyperglycemia, unspecified
CPT/HCPCS: 36415; 80048; 83036; 85025

== ENCOUNTER 2023-07-24 09:28 | Inpatient (IN) | payer OTHER, SELFPAY ==
[2022-10-19 11:14] VITALS: BMI 34.4
[2023-07-18 08:45] VITALS: BMI 34.3
[2023-07-24] VITALS (16 sets, daily range): BP systolic 124–167; BP diastolic 76–101; PULSE 74–93; RESP 10–19; TEMP 36.1–36.5; O2SAT 94–98; BMI 34.3
[2023-07-24] MEDS: ACETAMINOPHEN 325 MG TABLET 975 MG PO (10:04)
[2023-07-24] MEDS: LACTATED RINGERS 1,000 ML 42 ML IV (10:04)
[2023-07-24] MEDS: CLINDAMYCIN 600 MG/50 ML PIGGYBACK 50 MG IV ×2 (11:15→21:17)
--- NOTE | 2023-07-24 11:34 | SUR.OPER ---
Supine on padded OR bed, head on pillow, arms padded and tucked at sides, legs uncrossed, safety belt at thigh, tape over blanket over lower legs .
--- NOTE | 2023-07-24 11:35 | SUR.OPER ---
Supine on padded OR bed, head on donut pillow, arms padded and tucked at sides, legs uncrossed, safety belt at thigh, tape over blanket over lower legs .
[2023-07-24] MEDS: BUPIVACAINE 0.25% (PF) 30 ML, EPINEPHrine 0.15 MG INJ (11:40)
--- NOTE | 2023-07-24 13:30 | PM.OP.1 ---
Operative Date/Time/Diagnoses Date of procedure: 07/24/23 Time of procedure: 11:30 Pre-op diagnosis: 1. C5-6, C6-7 spinal stenosis 2. cervical radiculopathy Post-op diagnosis: same Procedure & Clinicians Procedure: 1. C5-6 C6-7 anterior cervical diskectomy and fusion 2. C5-6 C6-7 anterior interbody cage placement 3. C5-6 C6-7 anterior instrumentation with plate and screw placement in C5-C6 and C7 vertebrae 4. Utilization of microsurgical technique and operating microscope Same procedure as scheduled: Yes Indications: Patient has been having chronic neck pain and worsening cervical radiculopathy. Patient has cervical MRI showing significant cervical spinal stenosis at C5-6 C6-7 with bilateral foraminal stenosis correlating with patient's symptoms. Patient failed multiple conservative management with worsening pain weakness and numbness in her upper extremity. Patient has been having difficulty performing activity of daily living. After discussing risks benefits of treatment options, patient elected proceed with surgery. Surgeon: Raysa Chung Perl Developer: Patricia Martinez Click Yes if Unassisted: No Anesthesia Type: General Operative Notes Closure Type: primary Specimen(s): none sent Prosthetic devices, grafts, tissues, transplants, or devices: Globus Extend Plate, Hedron C cages Estimated Blood Loss (mL): 5 Blood products transfused: none Procedure in detail: Patient was seen in the preoperative area. Risks and benefits of the surgery was discussed with the patient. Operative consent was obtained and placed in the chart. Patient was then taken to the operative room. Prophylactic antibiotic was given less than 0.5 hr prior to skin incision. General anesthesia was administered. Patient was placed into a supine position on her radiolucent table. Bilateral shoulders were taped down to allow proper C-arm imaging. Anterior cervical area was prepped and draped in a sterile fashion. Time-out was performed at this time. Using lateral C-arm imaging, the level between C5 and C7 was identified and marked on patient's neck. A oblique incision from midline towards medial border of sternocleidomastoid muscle was made. The platysma muscle was incised in line with skin incision. Metzenbaum scissor was used to develop the plane between the medial border of sternocleidomastoid and the strap muscles medially. The carotid sheath and its contents were identified and protected behind the hand-held retractor during the entire case. The plane between the carotid sheath and strap muscles was developed with Metzenbaum scissors. Dissection was made down to the level of the anterior cervical fascia. Longus colli muscle was incised on the anterior aspect of vertebral bodies bilaterally from C5-C7. Spinal needle was placed into the C5-6 disc space and confirmed with lateral C-arm imaging. Using microsurgical technique and operative microscope, anterior cervical diskectomy was performed at C5-6 and C6-7 level. This was done by removing the disc material, removing the anterior and posterior osteophytes posterior longitudinal ligaments along with performing bilateral foraminotomies at both levels. Patient was found to have severe central and foraminal stenosis at both levels. Patient's stenosis was fully decompressed after decompression was completed. After the diskectomy was completed, 2 anterior interbody cages were obtained. The cages were packed with DBM bone grafting material. One cage each along with the bone grafting material was then packed into the interbody spaces from C5-C7 with one cage into each interbody level. After the cages were placed, the anterior cervical plate was stabilized to the C5-C7 vertebrae using 2 screws at each each level. Total 6 screws were placed. After confirming placement of the hardware with AP and lateral C-arm imaging, the screws were locked into the plate using the locking mechanism and torque limiting screwdriver. After the hardware was placed and confirmed with AP and lateral C-arm imaging, the wound was irrigated with sterile normal saline. The platysma muscle and the subcutaneous tissue was closed with 2-0 Vicryl. The skin was closed with 4-0 Monocryl and Steri-Strips. Patient tolerated the procedure well. Patient was transferred recovery room in stable condition. There were no complications. The Operation could not have been safely performed without compromising the technical result or length of the procedure, without the assistance of a skilled surgical supplies sterilizer. The surgical supplies sterilizer was medically necessary for proper positioning, retraction and manipulation of instruments, proper exposure, surgical preparation, and manipulation of tissue. Complications: none Post-operative Condition: stable Disposition: PACU Plan for aftercare: Admit to inpatient hospital
--- NOTE | 2023-07-24 13:38 | DI.RAD.S_ITS ---
PROCEDURE: XR CERVICAL SPINE 2V OR 3V INDICATIONS: C5-6,C6-7 ACDF TECHNIQUE: 3 intraoperative fluoroscopic images of cervical spine were obtained. COMPARISON: [facility], , XR CERVICAL SPINE 4V OR 5V, 09/23/2022, 17:12. FINDINGS: Intraoperative fluoroscopic images shows anterior fusion of cervical spine at C5-6 and C6-7 levels. IMPRESSION: Fluoro guidance was provided intraoperatively for ACDF at C5-6 and C6-7 levels. Dictated by: Burton Martínez M.D. on 07/24/2023 at 14:15 Approved by: Burton Martínez M.D. on 07/24/2023 at 14:16
[2023-07-24] MEDS: HYDROMORPHONE 1 MG INJ IV ×4 (13:47→14:11)
[2023-07-24] MEDS: hydrOXYzine 50 MG/ML INJ 25 MG IM (13:51)
[2023-07-24] MEDS: OXYCODONE IR 5 MG TABLET PO ×5 (13:56→22:53)
[2023-07-24] MEDS: LACTATED RINGERS 1,000 ML 125 ML IV (15:59)
[2023-07-24] MEDS: ACETAMINOPHEN 325 MG TABLET 650 MG PO (18:56)
[2023-07-24] MEDS: METOPROLOL ER 50 MG TABLET 100 MG PO (20:06)
[2023-07-24] MEDS: PANTOPRAZOLE DR 40 MG TABLET PO (20:07)
[2023-07-24] MEDS: ATORVASTATIN 20 MG TABLET 40 MG PO (20:07)
[2023-07-24] MEDS: OXcarbazepine 150 MG TABLET 300 MG PO (20:07)
[2023-07-24] MEDS: DOCUSATE 100 MG CAPSULE PO (20:07)
[2023-07-24] MEDS: LOSARTAN 50 MG TABLET PO (20:07)
[2023-07-24] MEDS: SENNOSIDES 8.6 MG TABLET 17.2 MG PO (20:07)
[2023-07-24] MEDS: HYDROMORPHONE 0.5 MG INJ IV (21:27)
[2023-07-25 00:24] VITALS: BP 124/65; PULSE 85; RESP 17; TEMP 36.4; O2SAT 94
[2023-07-25] MEDS: HYDROMORPHONE 0.5 MG INJ IV ×2 (00:44→03:52)
[2023-07-25] MEDS: LACTATED RINGERS 1,000 ML 125 ML IV (02:42)
[2023-07-25] MEDS: CLINDAMYCIN 600 MG/50 ML PIGGYBACK 50 MG IV (03:47)
[2023-07-25 05:58] LABS: Hematocrit 31.6 % (36-46); Hemoglobin 10.6 g/dL (12.0-16.0)
--- NOTE | 2023-07-25 07:47 | PM.DS.1 ---
History of Present Illness History of Present Illness Date Patient Seen: 07/25/23 Time Patient Seen: 07:49 Chief complaint: Neck pain Narrative: Patient notes her pain was moderate to severe overnight. She is dry throat. No shortness of breath or chest pain. No fever chills. Patient has been able to drink clear liquids and have some crackers. Patient notes a little bit of nausea after drinking some liquids. No vomiting. Patient does have assistance at home. Discharge Providers Provider Date of admission: 07/24/23 09:28 Discharge Date: 07/25/23 Primary care physician: Robert Cummings MD Consults: 07/24/23 14:57 Consult to Occupational Therapy Evaluate & Treat Comment: Physician Instructions: Evaluate and treat Consult to Physical Therapy Evaluate & Treat Comment: Physician Instructions: Evaluate and Treat Discharge provider: Stephen Caal PA-C Summary Hospital Course Discharge Diagnosis: 1. C5-6, C6-7 spinal stenosis 2. cervical radiculopathy Hospital Course: 1. C5-6 C6-7 anterior cervical diskectomy and fusion 2. C5-6 C6-7 anterior interbody cage placement 3. C5-6 C6-7 anterior instrumentation with plate and screw placement in C5-C6 and C7 vertebrae 4. Utilization of microsurgical technique and operating microscope Same procedure as scheduled: Yes Indications: Patient has been having chronic neck pain and worsening cervical radiculopathy. Patient has cervical MRI showing significant cervical spinal stenosis at C5-6 C6-7 with bilateral foraminal stenosis correlating with patient's symptoms. Patient failed multiple conservative management with worsening pain weakness and numbness in her upper extremity. Patient has been having difficulty performing activity of daily living. After discussing risks benefits of treatment options, patient elected proceed with surgery. Surgeon: Raysa Chung Supervisor Cleaning And Annealing: Patricia Martinez Click Yes if Unassisted: No Anesthesia Type: General Operative Notes Closure Type: primary Specimen(s): none sent Prosthetic devices, grafts, tissues, transplants, or devices: Globus Extend Plate, Hedron C cages Estimated Blood Loss (mL): 5 Blood products transfused: none Patient admitted for the above-mentioned procedure. Patient consented to the same. Patient underwent anterior cervical fusion July 24, 2023. Patient back in her room recovering well as in stable condition. Soft collar for comfort. Mobilize with physical therapy. Multimodal pain management. Limit bending, twisting, lifting. Status at Discharge Cognitive/behavioral status at discharge: at baseline, oriented Functional status at discharge: independent ambulation Overall status at discharge: patient is progressing back to baseline Exam Vital Signs (past 8 hours): - 07/25/23 00:24 Temperature 97.6 F Pulse Rate 85 Respiratory Rate 17 Blood Pressure 124/65 Pulse Oximetry 94 Oxygen Flow Rate 0 Fraction of Inspired Oxygen 28 SaO2/FiO2 Ratio 339 Oxygen Delivery Method Room Air Oxygen Flow Rate 0 Narrative Exam Narrative: 62-year-old female resting comfortably in bed in no apparent distress. Dressing is clean, dry and intact. Motor functions intact bilateral upper extremities. Strength is 5/5 bilateral upper extremities. Sensation grossly intact to light touch bilateral upper extremities. 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 Facet arthropathy, lumbar Venous (peripheral) insufficiency Herpesviral infection Allergic rhinitis Obesity (BMI 30-39.9) Menopausal syndrome GERD without esophagitis History of renal carcinoma Acquired hypothyroidism Mixed hyperlipidemia Herniated nucleus pulposus, lumbar Greater trochanteric bursitis of right hip History of foot fracture 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 Trigeminal neuralgia Herpes labialis Peripheral neuropathy Family history of coronary artery disease (01/13/16) Fibromyalgia (05/22/15) Surgical History (Updated 07/18/23 @ 09:07 by Kailee Funk RN) History of gynecologic surgery (09/10/20) History of carpal tunnel surgery of left wrist History of carpal tunnel surgery of right wrist History of cholecystectomy H/O left nephrectomy Status post laparoscopic supracervical hysterectomy (2005) Family History Grandmother Colorectal cancer Sister Age: 58 Lupus Son Cardiac cancer Mother Valvular heart disease Congestive heart failure Rheumatic fever Other Essential hypertension Social History details: (Yuri), 10 children (one ), homemaker household members: spouse Smoking Status: Never smoker alcohol intake: never Discharge Assessment & Plan Assessment and Plan Assessment: Patient progressing as expected status post ACDF Plan of Treatment: Multimodal pain management Keep dressing clean and dry, soft collar for comfort Mobilize with physical therapy, limit bending, twisting, lifting Discharge home today after physical therapy if safe for home environment Discharge Plan Discharge Plan Patient Disposition: Home Discharge orders & Medications Prescriptions: New acetaminophen 325 mg Tablet 650 mg PO Q6H PRN (Reason: Fever/Mild Pain (1-3)) Qty: 60 0RF ondansetron 4 mg Tablet,Disintegrating 4 mg sublingual Q4HR PRN (Reason: Nausea) Qty: 8 0RF Continued acyclovir 400 mg tablet 400 mg PO DAILY Qty: 90 3RF estradiol 1 mg tablet 1 mg PO DAILY Qty: 90 2RF levothyroxine 125 mcg tablet 125 mcg PO DAILY Qty: 90 3RF omeprazole 40 mg capsule,delayed release(DR/EC) 40 mg PO BID Qty: 180 3RF cholecalciferol (vitamin D3) 50 mcg (2,000 unit) capsule 50 mcg PO DAILY atorvastatin 40 mg tablet 40 mg PO HS Qty: 90 3RF carbamazepine 200 mg tablet 200 mg PO BID Qty: 180 3RF duloxetine 60 mg capsule,delayed release(DR/EC) 60 mg PO QDAY Qty: 90 3RF metoprolol succinate 100 mg tablet extended release 24 hr 100 mg PO BEDTIME Qty: 180 3RF cetirizine 10 mg Tablet 10 mg PO DAILY hydrochlorothiazide 12.5 mg capsule 12.5 mg PO DAILY losartan 50 mg tablet 50 mg PO BEDTIME potassium chloride 20 mEq tablet,ER particles/crystals 20 meq PO DAILY Discontinued acetaminophen-codeine 300-30 mg tablet 1 tab PO Q8H PRN (Reason: pain) Qty: 24 5RF Hold Instructions: change to #10/mo Rx Instructions: EXEMPT diclofenac sodium 50 mg tablet,delayed release (DR/EC) 50 mg PO BIDCC Qty: 180 3RF Hold Instructions: Trial of cessation Follow up/Referrals: Robert Cummings MD [Primary Care Provider] - Raysa Chung MD [Physician] - 08/08/23 10:20 am (Follow up w/ Patricia Martinez PA-C, at [facility] office in [place].) Diet/Activity/Treatments Diet: Diet as Tolerated Diet comment: Start with soft foods that are easy to swallow. Activity: Soft collar is for comfort only; you do not need to wear it if it is not comfortable. Most people find it helpful to wear while sitting upright or standing/walking; some people are more comfortable sleeping with it on. Cold/Heat Therapy: Heating pad to back of neck, between shoulder blades as needed for pain. Skin/Wound/Dressing Care Report to your healthcare provider any signs of infection, such as:: chills, fever, night sweats, unusual drainage and unusual redness Dressing: May shower. If dressing becomes wet inside, remove and replace with clean, dry gauze. Leave steri-strips in place until follow up in office. Visit Report/Discharge Packet Instructions: DI for Anterior Cervical Discectomy and Fusion Stand Alone Forms: Patient Portal/API, Stroke Signs & Symptoms, Surgery Discharge Discharge Data Primary Care Provider: Robert Cummings V
[2023-07-25 08:44] VITALS: BP 135/78; PULSE 72; RESP 16; TEMP 36.4; O2SAT 96
--- NOTE | 2023-07-25 09:10 | PT.IIE ---
Current Diagnoses Spinal stenosis, cervical region (07/24/23) Surgery Performed Operation Date: 07/24/23 10:45 Actual Procedures p C5-6, C6-7 ACDF with anterior instrumentation - Raysa Chung MD Surgical History (Last Updated 07/18/23 @ 09:07 by Kailee Funk, RN) H/O left nephrectomy History of carpal tunnel surgery of left wrist History of carpal tunnel surgery of right wrist History of cholecystectomy History of gynecologic surgery (09/10/20) Status post laparoscopic supracervical hysterectomy (2005) Medical History (Last Updated 07/18/23 @ 09:11 by Kailee Funk, RN) Acquired hypothyroidism Allergic rhinitis CTS (carpal tunnel syndrome) 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 Facet arthropathy, lumbar Family history of coronary artery disease (01/13/16) Fibromyalgia (05/22/15) GERD without esophagitis 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 Greater trochanteric bursitis of right hip Herniated nucleus pulposus, lumbar Herpes labialis Herpesviral infection History of COVID-19 (~2021) History of foot fracture History of renal carcinoma HTN (hypertension) Hypothyroidism Menopausal syndrome Mixed hyperlipidemia Obesity (BMI 30-39.9) Peripheral neuropathy Trigeminal neuralgia Venous (peripheral) insufficiency Physical Therapy Inpatient Evaluation/Re-Eval M1 PT/OT-IP Prior Functional Status Start: 07/25/23 11:36 Freq: NEEDED Status: Active Protocol: Document 07/25/23 09:10 AB (Rec: 07/25/23 11:45 AB [id number]) Medical Review Prior Functional Status Communication able to make needs known Mobility and Gait pt stated that she was independent with all mobilities and ambulation without AD Social History Household Members spouse Living Arrangements House Number of Floors (Floors) One Floor Number of Stairs To Enter/Railing? 2 steps R rail ascending to enter the house Home Environment Standard Height Toilet,Tub/ Shower Home Equipment Hand Held Shower M2 PT-IP Current Condition Start: 07/25/23 11:36 Freq: NEEDED Status: Active Protocol: Document 07/25/23 09:10 AB (Rec: 07/25/23 11:45 AB [id number]) Physical Therapy Current Condition Current Condition Evaluation Date 07/25/23 Treatment Diagnosis s/p C5-6, C6-7 ACDF; difficulty in walking Onset Date 07/24/23 M3 PT-IP Subjective Start: 07/25/23 11:36 Freq: NEEDED Status: Active Protocol: Document 07/25/23 09:10 AB (Rec: 07/25/23 11:45 AB [id number]) Subjective Physical Therapy Visit Type Type Initial Evaluation Visit Start Time 09:10 Visit Stop Time 09:30 Number of TRAINMAN Visits 0 Physical Therapy Visit Comments Patient Comments agreeable to do PT Therapy Pain Assessment Pain When Pain Assessed At Rest Pain Present Pain Present Pain Reported Location neck Intensity 5 Scale Used Numeric (0 - 10) Pain Management Techniques Apply Cold,Distraction, Modification of Treatment,Re- positioning,Timing of Activity with Medications M4 PT-IP Mobility and Gait Start: 07/25/23 11:36 Freq: NEEDED Status: Active Protocol: Document 07/25/23 09:10 AB (Rec: 07/25/23 11:45 AB [id number]) PT-Bed Mobility Assessment Rolling Type of Rolling Log Rolling Level of Assist Standby Assistance Supine to Sit Supine to Sit Standby Assistance Sit to Supine Sit to Supine Standby Assistance PT-Transfer Assessment Sit to and From Stand Sit to and from Stand Standby Assistance,Use of Upper Extremities Equipment Transfer Assistive Device None,Gait Belt Orthotic/Prosthetic Devices or Brace: Yes Transfers Transfer Destination Bed,Chair Transfer Technique ambulated Transfer Ability Level of Assist Standby Assistance,Use of Upper Extremities Comments Mobility Comments pt sitting on the chair and agreeable to do PT. obtained PLOF and home set up from pt. reviewed cervical precautions and log roll bed mobility. pt completed sit to stand SBA and ambulated in the hallway ~ 150 ft SBA without AD. pt completed up/down steps using R rail ascending SBA. pt ambulated back to her room and sat on EOB. demonstrated log roll sit<>supine SBA. pt ambulated to chair without AD SBA. positioned pt on the chair. call light and table placed within reach. pt without further concerns. Gait Assessment Gait Gait Assistance Required: Standby Assistance Distance (Feet) 150 Able to Maintain Weight Bearing Status Yes During Gait Assistive Devices Assistive Device None,Gait Belt Orthotic/Prosthetic Devices or Brace: Yes Gait Deviations General Gait Pattern Decreased Stride Length Factors Limiting Gait Function Factors Limiting Gait Function Decreased Activity Tolerance, Decreased Strength,Limited Range of Motion,Pain,Poor Balance Stair Climbing Assessment Evaluation Level of Assist On Stairs Standby Assistance Devices Stair Climbing Assistive Devices Right Railing Technique/Endurance Stair Climbing Direction Ascend and Descend Stair Climbing Technique Step to Step Number of Steps Climbed 3 Query Text: Stair Climbing Set # Repetitions (reps) 1 PT-Balance Assessment Sitting Balance and Reactions Static Sitting Balance Ability Normal Dynamic Sitting Balance Ability Good Standing Balance and Reactions Static Standing Balance Ability Good Dynamic Standing Balance Ability Good Device Used without AD M5 PT-IP Objective Assessments Start: 07/25/23 11:36 Freq: NEEDED Status: Active Protocol: Document 07/25/23 09:10 AB (Rec: 07/25/23 11:45 AB [id number]) Orientation Orientation/Cognition Level of Alertness Alert Orientation Name,Place,Situation Language Function Ability No Deficits Noted Safety Awareness Understands Safety Issues Memory Description No Deficits Noted Gross Range of Motion Lower Extremity ROM Assessment Within Functional Limits Strength Lower Extremity Strength Assessment Within Functional Limits Coordination Assessment Gross Coordination Gross Coordination WNL Muscle Tone Muscle Tone WNL Yes M6 PT-IP Treatment Start: 07/25/23 11:36 Freq: NEEDED Status: Active Protocol: Document 07/25/23 09:10 AB (Rec: 07/25/23 11:45 AB [id number]) Physical Therapy Treatment Education Education Provided Precautions,Weight Bearing Status,Safety M7 PT-IP Assessment and Plan Start: 07/25/23 11:36 Freq: NEEDED Status: Active Protocol: Document 07/25/23 09:10 AB (Rec: 07/25/23 11:45 AB [id number]) PT Summary Assessment and Plan Potential Rehabilitation Potential Good Status of Condition at Evaluation Stable Summary Impairments Pain,ROM,Strength,Balance, Coordination,Sensation,Tone, Cognition,Bed Mobility, Transfers,Gait,Activity Tolerance Assessment Summary pt is a 62 y/o F s/p C5-6, C6- 7 ACDF POD 1. pt with cervical precautions. pt requiring SBA with mobility without AD. pt plans to go home and spouse will be able to assist pt at home. pt may go home when medically stable. Goals Bed Mobility Goal Independent Transfer Goal Independent Gait Goal Independent Gait Distance 300 Other Goals up/down 2 steps R rail ascending mod I Days to Meet Goals 5 Frequency of Treatment Frequency Of Treatment Twice a Day Treatment Plan Physical Therapy Treatment Plan Bed Mobility Training,Transfer Training,Gait Training, Therapeutic Exercise,Balance Retraining,Post Op Education, Discharge Planning,Hot or Cold Pack,Neuromuscular Re-ed, Coordination Retraining,Manual Therapy Precautions Cervical Spine Precautions Soft Collar for Comfort,No Heavy Lifting,Log Roll Recommendations To Nursing Amount of Assist Needed Standby Assistance Discharge Recommendations PT Discharge Recommendations Home with Assistance Transportation Needs at Discharge Private Vehicle
--- NOTE | 2023-07-25 09:11 | OT.IP.EVAL ---
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 Greater trochanteric bursitis of right hip Herniated nucleus pulposus, lumbar Herpes labialis Herpesviral infection History of COVID-19 (~2021) History of foot fracture History of renal carcinoma HTN (hypertension) Hypothyroidism Menopausal syndrome Mixed hyperlipidemia Obesity (BMI 30-39.9) Peripheral neuropathy Trigeminal neuralgia Venous (peripheral) insufficiency Surgical History (Last Updated 07/18/23 @ 09:07 by Kailee Funk RN) H/O left nephrectomy History of carpal tunnel surgery of left wrist History of carpal tunnel surgery of right wrist History of cholecystectomy History of gynecologic surgery (09/10/20) Status post laparoscopic supracervical hysterectomy (2005) Occupational Therapy Inpatient Evaluation/Re-Eval M1 PT/OT-IP Prior Functional Status Start: 07/25/23 09:09 Freq: NEEDED Status: Active Protocol: Document 07/25/23 09:10 [facility] (Rec: 07/25/23 09:21 [facility] [id number]) Medical Review Prior Functional Status Communication Independent Mobility and Gait Indepedent Activities of Daily Living and IADL's Independent Social History Household Members spouse Living Arrangements House Number of Floors (Floors) One Floor Number of Stairs To Enter/Railing? 2 steps with right rail going up. Home Environment Standard Height Toilet,Tub/ Shower M2 OT-IP Current Condition Start: 07/25/23 09:09 Freq: Status: Active Protocol: Document 07/25/23 09:10 [facility] (Rec: 07/25/23 09:21 [facility] [id number]) Occupational Therapy Current Condition Current Condition Evaluation Date 07/25/23 Treatment Diagnosis S/P C5-6, C6-7 ACDF Diagnosis Onset Date 07/24/23 Post Operative Precautions Cervical Spine Precautions Soft Collar for Comfort,No Heavy Lifting,Log Roll M3 OT- IP Subjective and Pain Start: 07/25/23 09:09 Freq: Status: Active Protocol: Document 07/25/23 09:10 [facility] (Rec: 07/25/23 09:21 [facility] [id number]) OT- Subjective Occupational Therapy Visit Type Type Initial Evaluation Visit Start Time 08:41 Visit Stop Time 09:11 Occupational Therapy Visit Comments Patient Comments Pt agreed to get up and get dressed. Patient/Caregiver Goals To go home. OT Pain Assessment Pain When Pain Assessed At Rest Pain Present Pain Present Pain Reported Location neck Intensity 5 Scale Used Numeric (0 - 10) M4 OT- IP ADL's Start: 07/25/23 09:09 Freq: Status: Active Protocol: Document 07/25/23 09:10 [facility] (Rec: 07/25/23 09:21 [facility] [id number]) OT [id number] Comments OT Self-Feeding Comments Went information of swallowing after ACDF. OT ADL-Grooming Comments OT Grooming Comments Suggested to spit into a cup or hinge at her hips to best follow her cervical precautions. OT ADL-Dressing General Eval Upper Body Dressing Ability Independent Comments OT Dressing Comments Pt states to do her shoes later. Educated pt to be mindful of her head positioning needs during ADL needs. Pt able to independently elizabet/doff the soft collar on her own. OT ADL-Toileting Comments OT Toileting Comments Pt agreed that she will wear pads at night as did before. OT ADL-Bathing Comments OT Bathing Comments Not performed. Went over care for bandage for showering needs. M5 OT- IP IADL's Start: 07/25/23 09:09 Freq: Status: Active Protocol: Document 07/25/23 09:10 [facility] (Rec: 07/25/23 09:21 [facility] [id number]) OT-Instrumental Activities of Daily Living Deficits IADL Deficits Identified Deficits Home Safety Awareness Awareness of Need for Assistance at Home Good Awareness Ability to Problem Solve Emergency Able to Problem Solve Situations Medication Management Medication Management No Deficits Identified Money Management Money Management No Deficits Identified Meal Preparation Meal Preparation Caregiver Provides Assist Sand Shoveler Sand Shoveler Caregiver Provides Assist M6 OT- IP Functional Cognition Start: 07/25/23 09:09 Freq: Status: Active Protocol: Document 07/25/23 09:10 [facility] (Rec: 07/25/23 09:21 [facility] [id number]) Cognitive Factors Limiting Selfcare Function Cognitive Ability Level of Alertness Alert Patient Orientation Name,Age,Birthday,Month,Date, Year,Day of Week,Place, Situation Attention Span Ability Capable of Focused Attention, Capable of Sustained Attention Ability to Follow Commands Able to Follow Multi-Step Commands Safety Awareness Decreased Ability to Apply Precautions Cognitive Comments Cognitive Assessment Comments Pt needing initial education for log rolling and cues to incorporate her cervical precautions during ADl and mobility needs. OT- Vision and Hearing OT- Hearing Assessment OT- Hearing Assessment WFL OT- Vision Assessment Visual Acuity Glasses For Reading Occular Pursuits WFL Visual Convergence WFL M7 OT- IP Mobility and Balance Start: 07/25/23 09:09 Freq: Status: Active Protocol: Document 07/25/23 09:10 [facility] (Rec: 07/25/23 09:21 [facility] [id number]) OT- Bed Mobility Assessment Rolling Level of Assistance Standby Assistance Supine to Sit Supine to Sit Assist Standby Assistance OT-Transfer Assessment Sit to and From Stand Sit to and from Stand Standby Assistance Transfers Transfer Ability Standby Assistance Technique Transfer Destination Bed,Chair Transfer Technique Stand Step Pivot Devices Transfer Assistive Devices None Comments Mobility Comments Pt initially pulling up into long sitting and educated to do log rolling. SBA for safety of cues initially. OT- Balance Assessment Sitting Balance and Reactions Static Sitting Balance Ability Normal Dynamic Sitting Balance Ability Normal Standing Balance and Reactions Static Standing Balance Ability Normal Dynamic Standing Balance Ability Good M8 OT- IP Objective Assessments Start: 07/25/23 09:09 Freq: Status: Active Protocol: Document 07/25/23 09:10 [facility] (Rec: 07/25/23 09:21 [facility] [id number]) OT Gross Range of Motion Upper Extremity Range of Motion Assessment Within Functional Limits M9 OT- IP Assessment and Plan Start: 07/25/23 09:09 Freq: Status: Active Protocol: Document 07/25/23 09:10 [facility] (Rec: 07/25/23 09:21 [facility] [id number]) OT Summary Assessment and Plan Potential Rehabilitation Potential Excellent Analytic Complexity at Evaluation Low Summary OT Impairments Pain,Strength,Balance, Functional Mobility,Toileting, Bathing,Toilet Transfers, Shower Transfers Progress Towards Goals Progressing Toward Goals Assessment Summary Pt low complexity and main barriers are steps and needing initial cues to follow her cervical precautions. Pt doing well and to go home when medically stable. Goals Dressing Goal Independent Toileting Goal Independent Bathing Goal Independent Toilet Transfer Goal Independent Shower Transfer Goal Independent Patient/Caregiver Education Goal Demonstrate Post-Op Precautions Days to Meet Goals 1 Frequency of Treatment Frequency Of Treatment Once a Day Treatment Plan OT Treatment Plan ADL Training,Functional Mobility,Patient/Family Education,Discharge Planning Discharge Recommendations OT Discharge Recommendations Home with Assistance Home Equipment Needs shower chair? Transportation Needs at Discharge Private Vehicle
[2023-07-25] MEDS: OXcarbazepine 150 MG TABLET 300 MG PO (09:21)
[2023-07-25] MEDS: DOCUSATE 100 MG CAPSULE PO (09:21)
[2023-07-25] MEDS: PANTOPRAZOLE DR 40 MG TABLET PO (09:22)
[2023-07-25] MEDS: LORATADINE 10 MG TABLET PO (09:22)
[2023-07-25] MEDS: POTASSIUM CHLORIDE 20 MEQ TAB PO (09:22)
[2023-07-25] MEDS: BENZOCAINE/MENTHOL 1 LOZ PKT 1 EACH PO (09:23)
[2023-07-25] MEDS: ACYCLOVIR 400 MG TABLET PO (09:23)
[2023-07-25] MEDS: DULOXETINE 30 MG CAPSULE 60 MG PO (09:23)
[2023-07-25] MEDS: CHOLECALCIFEROL (VITAMIN D3) 1,000 UNIT TABLET 2000 UNIT PO (09:24)
[2023-07-25] MEDS: LEVOTHYROXINE 125 MCG TABLET PO (09:24)
[2023-07-25] MEDS: OXYCODONE IR 10 MG TABLET PO (09:24)
--- NOTE | 2023-07-25 11:21 | CM.DANOTE ---
DCP Assessment note Pt is a 62yo F here following planned neck surg with Dr. Chung on 07.24.23. PCP Zoila Paynate DOMINGO and self pay HEAD CORRECTION OFFICER reviewed EMR. per RN, pt doing well. Per chart review, anticipate home with spouse today. OT rec home with assistance. PT pending. HEAD CORRECTION OFFICER met with pt in room. Pt reports indep at baseline. Spouse Yuri at home will help support her. Deny any CM needs. Plan: anticipate home today with spouse to assist/transport. no identified barriers to safe dc home. Deny CM needs. CM team will follow as needed. ANITA Sepulveda Discharge Planning/Care Management CM Discharge Assessment Start: 07/25/23 11:19 Freq: Status: Active Protocol: Document 07/25/23 11:19 SL (Rec: 07/25/23 11:21 [id number]) Discharge Planning Assessment Assigned Dish Technician ANITA Shin DPOA/Assigned Designee Name Yuri, spouse Contact Information [phone] Advance Directives? No Advance Directives on File No History Provided By Patient Prior Living Arrangements House Household Members spouse Type of transporation used prior to Drives own vehicle admit Willing to Return to Facility? No Independent with ADL's Yes Is patient alert and oriented? Yes Barriers to Discharge No Discharge Plan Home Transportation Arrangement spouse in POV Referrals Initiated None needed Whiteboard Updated in Patient Room with Yes name and ext. # of Dish Technician Review Status In Process Please Provide Date Initial DC 07/25/23 Assessment Was Performed Next Review Type Continued Stay Review Pre-Anesthesia Assessment Start: 07/18/23 08:45 Freq: Status: Complete Protocol: Document 07/18/23 08:45 CAB (Rec: 07/18/23 09:17 CAB [id number]) Pre-Anesthesia Assessment Preferred Name Fidelia Patient Information Reviewed Via Phone Assessment Assessment Completed With Patient Diagnostic Results BMP/CMP,CBC Comment Labs @ [facility] 06/27/23, outside EKG scanned Primary Care Provider Robert Cummings Seen Specialist in Last 12 Months Yes Specialist Seen Agriculture Instructor,Orthopedist Primary Language Solomon Islander Preferred Language [place] Islander Beaming Machine Operator Required No Height 167.64 cm Weight 96.615 kg Body Mass Index (BMI) 34.3 Hearing Ability Normal Visual Assist Magnifying Glass Dentition Type Teeth, Natural Present Barriers to Learning None Hx Anesthesia Reactions No Hx Family Anesthesia Reaction No Hx Malignant Hyperthermia No Hx Blood Transfusions No Hx Blood Transfusion Reaction No Anesthesia Review Requested No Chief Cardiopulmonary Technologist No alcohol intake never Smoking Status Never smoker Substance Use Type does not use Pain Present Pain Reported Musculoskeletal Symptoms Arthralgias,Back Pain,Neck Pain,Numbness,Radiating Pain into Limb,Tingling History of Falling (Recent or History of Yes ) Comment I've fallen a couple of times Patient is completely paralyzed or No completely immobile Mental Status Oriented to own ability Is patient on oxygen? No Does patient have LANIER/SOB No Hx Sleep Apnea No CPAP/BIPAP use not prescribed Currently Taking a Beta Анна Yes: Metoprolol Can You Climb a Flight of Stairs Without Yes SOB Hx Chest Pain No Hx SOB No Hx Syncope or Dizziness Yes: Hx of chronic dizziness Anti-Coagulant Therapy No Has a Agriculture Instructor Yes: Visit 04/18/[address] Mills @ [facility] Cardiac Testing No Hx Pacemaker/ICD No Pacemaker Rep Required? No Comment Cardiac records scanned and in surgery folder Diet Type At Home Regular Dysphagia No Gastrointestinal Symptoms Reflux Urinary Catheter Present No Hx Urinary Self Catheterization No Diabetes No HgbA1C 5.4 Date 06/27/23 Patient No Lactating No Hx Drug Resistant Organism No Presence of External or Internal Medical No Devices Received a COVID vaccine? Yes Received all doses? Yes Marital Status Lives With spouse Current Living Arrangements House Number of Floors (Floors) One Floor Support System Child/Children,Spouse Does the Patient Have Assistance After Yes Surgery Patient Discharge Plan Description Return Home Comment Pt advised overnight length of stay per surgeon Feels Safe in Current Environment Yes Been Physically Hurt or Threatened By a No Person in Current Environment Do you have thoughts of harming yourself None or others? Are you currently considering suicide? No Do you have a plan to hurt yourself or No Plan others? Do You Have Any Spiritual Beliefs That No May Affect Your HC Choices? Do You Have Any Cultural Practices That No May Affect Your HC Choices? Who Can We Speak to About Patient's Care Family, friends Identifying Code for Release of Patient Declines to issue Information Health Care Proxy/Next of Kin Yuri () Health Care Proxy Emergency Contact Name Yuri () Emergency Contact Advance Directives? No Advance Directives on File No Power of Weigher Alloy No PAC Instructions Medications to take/avoid, Nasal antibiotic,No ETOH/ petroleum product on skin DOS, NPO,Post-op transportation,Pre -surgical wash,Sensory aids, Sturdy shoes/comfortable clothes,Do not bring valuables and remove jewelry
== END 2023-07-25 10:34 | disposition home or self-care (01) | DRG 473 ==
PROVIDERS: Admitting Provider Orthopaedic Surgery Orthopaedic Surgery of the Spine; PCP Internal Medicine; Referring Provider Orthopaedic Surgery Orthopaedic Surgery of the Spine; Visit Provider Orthopaedic Surgery Orthopaedic Surgery of the Spine
PROC: 0RG20A0 Fusion of 2 or more Cervical Vertebral Joints with Interbody Fusion Device, Anterior Approach, Anterior Column, Open Approach (ICD-10-PCS; principal; 2023-07-24 10:45)
DX: M48.02 Spinal stenosis, cervical region (principal); M54.12 Radiculopathy, cervical region; K21.9 Gastro-esophageal reflux disease without esophagitis; E03.9 Hypothyroidism, unspecified; I10 Essential (primary) hypertension
CPT/HCPCS: 36415; 72040; 76000; 85014; 85018; 94762; 97161; 97165; 97535; C1713; J0171; J1100; J1170; J2250; J2405; J2704; J3010; J3410

== ENCOUNTER 2023-08-08 12:55 | Day surgery (SDC) | payer OTHER, SELFPAY ==
[2023-07-24 16:00] VITALS: BMI 34.3
[2023-08-08] MEDS: LACTATED RINGERS 1,000 ML 42 ML IV (13:26)
[2023-08-08 13:47] VITALS: BP 142/89; PULSE 96; RESP 16; TEMP 36.4; O2SAT 99
--- NOTE | 2023-08-08 14:00 | PM.PREOP ---
Pre-operative Note Interval Note History & Physical reviewed/Exam performed by Physician: Yes Changes to H&P: No
--- NOTE | 2023-08-08 14:06 | PM.OP.EC ---
Operative Date/Time/Diagnoses Date of procedure: 08/08/23 Pre-op diagnosis: colorectal screening Procedure & Clinicians Study performed: Screening colonoscopy Same procedure as scheduled: Yes Indications: Colorectal screening Surgeon: Fidel Zelaya Procedure Notes Procedure in detail: The history and physical was performed/updated and the patient is ASA class is 2. The procedure was discussed in detail with the patient. Potential risks complications including infection, bleeding, missed diagnosis, perforation, need for surgery, and were explained. Their questions were answered and informed consent was obtained. Patient placed in left lateral decubitus position. Time out was performed. Procedural sedation was administered by Anesthesia. Examination began with a thorough inspection of the perianal area there was no evidence of fissures, fistulae, external hemorrhoids or cutaneous malignancy. The colonoscopy scope was then placed into the anal canal and was advanced to the cecum, which was identified by the ileocecal valve, the appendiceal orifice and the confluence of the taenia. The scope was then slowly withdrawn examining colon thoroughly in all directions, irrigating it of any residual stool. FINDINGS No masses or polyps Mild diverticulosis of descending colon Internal hemorrhoids The patient tolerated the procedure well. They will be discharged once criteria are met. The prep was of good/excellent quality. The withdrawl time was 6 minutes. Specimen(s): other (GE junction) Impression: Normal colonoscopy Post-procedure Recommendations: Colonscopy in 10 years Disposition: same day surgery
[2023-08-08 14:43] VITALS: BP 122/75; PULSE 90; RESP 17; TEMP 37.1; O2SAT 95
[2023-08-08 14:51] VITALS: BP 122/78; PULSE 95; RESP 16; TEMP 37; O2SAT 97
[2023-08-08 14:56] VITALS: BP 121/83; PULSE 87; RESP 15; O2SAT 99
== END 2023-08-08 15:05 | disposition home or self-care (01) ==
PROVIDERS: PCP Internal Medicine; Referring Provider Surgery; Visit Provider Surgery
PROC: 0DJD8ZZ Inspection of Lower Intestinal Tract, Via Natural or Artificial Opening Endoscopic (ICD-10-PCS; CPT 45378; 2023-08-08 14:15)
DX: Z12.11 Encounter for screening for malignant neoplasm of colon (principal); K57.30 Diverticulosis of large intestine without perforation or abscess without bleeding; K64.8 Other hemorrhoids
CPT/HCPCS: 45378; J2704

== ENCOUNTER → 2023-09-20 10:02 | Outpatient (CLI) | payer OTHER, SELFPAY ==
[2023-07-24 16:00] VITALS: BMI 34.3
[2023-09-20 10:26] LABS: Hematocrit 36.9 % (36-46); Hemoglobin 12.1 g/dL (12.0-16.0); Mean Corpuscular HGB Conc 32.7 % (30-36); Mean Corpuscular Hemoglobin 26.4 PG (26-34); Mean Corpuscular Volume 80.7 fL (80-100); Platelet Count 268 X10^3/uL (150-400); Red Blood Cell Count 4.57 X10^6/uL (4.0-5.2); Red Cell Distribution Width 14.1 % (11.6-14.8); White Blood Cell Count 9.3 X10^3/uL (4.5-11.0)
[2023-09-20 10:47] LABS: Hemoglobin A1C% w Est Avg Glu 5.5 % (4.0-6.0)
[2023-09-20 10:56] LABS: Aspartate Aminotransferase 19 IU/L (14-36); BUN Creatinine Ratio 16.9 (6-22); Blood Urea Nitrogen 10 mg/dL (7-17); Calcium 9.2 mg/dL (8.4-10.2); Carbon Dioxide 28 mmol/L (22-32); Chloride 102 mmol/L (98-107); Cholesterol 158 mg/dL (140-199); Estimated Glomerular Filt Rate > 60 mL/min (>60); Glucose 97 mg/dL (80-110); HDL Cholesterol 54 mg/dL (40-60); HEMOLYSIS < 15 (0-50); LDL Cholesterol Calculated 61 mg/dL (<100); Potassium 4.6 mmol/L (3.4-5.1); Sodium 134 mmol/L (137-145); Triglycerides 217 mg/dL (35-150)
[2023-09-20 11:24] LABS: TSH w/ Reflex to FT4 1.28 uIU/mL (0.47-4.68)
[2023-09-21 03:40] LABS: Carbamazepine Tegretol Level 8.5 ug/mL (4.0-12.0)
== END ==
PROVIDERS: PCP Internal Medicine; Referring Provider Internal Medicine; Visit Provider Internal Medicine
DX: E03.9 Hypothyroidism, unspecified (principal); E78.2 Mixed hyperlipidemia; M48.02 Spinal stenosis, cervical region; G50.0 Trigeminal neuralgia; R73.01 Impaired fasting glucose
CPT/HCPCS: 36415; 80048; 80061; 80156; 83036; 84443; 84450; 85027

== ENCOUNTER 2023-11-07 14:11 | Day surgery (SDC) | payer OTHER, SELFPAY ==
[2023-07-24 16:00] VITALS: BMI 34.3
--- NOTE | 2023-11-07 | PATH_ITS ---
[facility] Accession Number: [id number] No. of containers..01 Tissue . 01 Material submitted: . esophagus, E-G Junction - GE JUNCTION . 01 Diagnosis: GASTROESOPHAGEAL JUNCTION, BIOPSY: Squamous mucosa with no diagnostic abnormality. No glandular mucosa present for evaluation. Negative for dysplasia or malignancy. [facility] 11/09/2023 1104 Local . 01 Electronically signed: . Hung Domingo MD, PhD, Pathologist NPI- [id number] . 01 Gross description: . Received in formalin with two patient identifiers and GE junction, is a single castro soft tissue fragment 0.3 cm in greatest dimension. Submitted in cassette A1. ([id number]) /ANGELES 11/08/2023 0824 Local . 01 Pathologist provided ICD-10: K21.9 . 01 CPT . 287457 Specimen Comment: A courtesy copy of this report has been sent to [phone] Performed at: [address] [facility] [address], [place], [place] [id number] MD uJlian Rojas MD Phone: [phone]
[2023-11-07 14:47] VITALS: BP 130/80; PULSE 70; RESP 16; TEMP 36.3; O2SAT 100
[2023-11-07] MEDS: LACTATED RINGERS 1,000 ML 42 ML IV (14:58)
--- NOTE | 2023-11-07 15:14 | PM.HP.1 ---
History of Present Illness History of Present Illness Date Patient Seen: 11/07/23 Time Patient Seen: 15:15 Date of Onset of Symptoms: 11/07/23 Chief complaint: EGD Narrative: 62-year-old woman here for diagnostic esophagogastroduodenoscopy. History of reflux and recently esophageal dysphagia dysphagia following ACDF. Since she has been taking 40 mg of omeprazole twice daily her symptoms have significantly improved. 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 Trigeminal neuralgia Herpes labialis Peripheral neuropathy Family history of coronary artery disease (01/13/16) Fibromyalgia (05/22/15) Surgical History History of gynecologic surgery (09/10/20) History of carpal tunnel surgery of left wrist History of carpal tunnel surgery of right wrist History of cholecystectomy H/O left nephrectomy Status post laparoscopic supracervical hysterectomy (2005) Family History Grandmother Colorectal cancer Sister Age: 58 Lupus Son Cardiac cancer Mother Valvular heart disease Congestive heart failure Rheumatic fever Other Essential hypertension Social History marital status: details: (Yuri), 10 children (one ), homemaker household members: spouse lives independently: Yes occupational status: previously employed Smoking Status: Never smoker alcohol intake: never substance use type: does not use Meds Home Medications and Allergies Home Medications Medication Instructions Recorded Confirmed Type cetirizine 10 mg tablet 10 mg PO DAILY 09/10/20 11/07/23 History cholecalciferol (vitamin D3) 50 50 mcg PO DAILY 09/07/22 11/07/23 History mcg (2,000 unit) capsule hydrochlorothiazide 12.5 mg capsule 12.5 mg PO DAILY 04/17/23 11/07/23 History acyclovir 400 mg tablet 400 mg PO DAILY #90 tabs 06/01/23 11/07/23 Rx estradiol 1 mg tablet 1 mg PO DAILY #90 tabs 06/01/23 11/07/23 Rx losartan 50 mg tablet 50 mg PO BEDTIME 06/15/23 11/07/23 History potassium chloride 20 mEq 20 meq PO DAILY 06/15/23 11/07/23 History tablet,extended release(part/cryst) levothyroxine 125 mcg tablet 125 mcg PO DAILY #90 tabs 06/28/23 11/07/23 Rx omeprazole 40 mg capsule,delayed 40 mg PO BID #180 caps 06/28/23 11/07/23 Rx release acetaminophen 300 mg-codeine 30 mg 1 tab PO BID PRN pain 90 days #30 09/20/23 11/07/23 Rx tablet tabs atorvastatin 40 mg tablet 40 mg PO HS #90 tabs 09/25/23 11/07/23 Rx carbamazepine 200 mg tablet 200 mg PO BID #180 tabs 09/25/23 11/07/23 Rx diclofenac sodium 50 mg 50 mg PO BID #180 tabs 09/25/23 11/07/23 Rx tablet,delayed release duloxetine 60 mg capsule,delayed 60 mg PO QDAY #90 caps 09/25/23 11/07/23 Rx release metoprolol succinate 100 mg 100 mg PO BEDTIME #180 tabs 09/25/23 11/07/23 Rx tablet,extended release 24 hr Allergies Allergy/AdvReac Type Severity Reaction Status Date / Time Penicillins [PENICILLINS] Allergy Severe Anaphylaxis Verified 11/07/23 14:26 adhesive [ADHESIVE] Allergy Mild LOCAL RASH Verified 11/07/23 14:26 AND SWELLING gabapentin AdvReac Intermediate Excessive Verified 11/07/23 14:26 fatigue pregabalin [From Lyrica] AdvReac Intermediate Excessive Verified 11/07/23 14:26 fatigue Exam Vital Signs (past 8 hours): - 11/07/23 14:47 Temperature 97.3 F L Pulse Rate 70 Respiratory Rate 16 Blood Pressure 130/80 Pulse Oximetry 100 Oxygen Delivery Method Room Air Oxygen Delivery Method Room Air Narrative Exam Narrative: General adult woman alert oriented no acute distress Chest nonlabored respiration Extremities warm well perfused Assessment & Plan Assessment and plan (1) Esophageal dysphagia: Status: Acute Assessment & Plan narrative: Diagnostic esophagogastroduodenoscopy recommended for esophageal dysphagia.. Technical details were discussed. Risks, benefits, alternatives explained. Risks including but not limited to myocardial infarction, aspiration, bleeding, pain, missed lesion, incomplete examination, need for further radiographic studies, intestinal injury, and need for major abdominal surgery were discussed. All questions were answered to their satisfaction, and they are in agreement with this plan. Time-Based Coding :: [TOTAL MINUTES] spent with patient and on the chart (including review of chart, obtaining history, exam, reviewing outside data, placing orders, documenting exam and treatment plan, and counseling patient) on [DATE].
[2023-11-07 15:42] VITALS: BP 126/82; PULSE 73; RESP 14; TEMP 36.3; O2SAT 97
[2023-11-07 15:45] VITALS: BP 135/89; PULSE 74; RESP 15; TEMP 36.3; O2SAT 97
--- NOTE | 2023-11-07 15:46 | PM.OP.EGD ---
Operative Date/Time/Diagnoses Date of procedure: 11/07/23 Time of procedure: 15:46 Pre-op diagnosis: Esophageal dysphagia Procedure & Clinicians Study performed: Diagnostic esophagogastroduodenoscopy Same procedure as scheduled: Yes Indications: Esophageal dysphagia Surgeon: Fidel Zelaya Procedure Notes Procedure in detail: The history and physical was performed/updated and the patient is ASA class is 3. The procedure was discussed in detail with the patient. Potential risks complications including infection, bleeding, missed diagnosis, perforation, need for surgery, and were explained. Their questions were answered and informed consent was obtained. Patient placed in left lateral decubitus position. Time out was performed. Procedural sedation was administered by Anesthesia. A bite block was placed. the scope was inserted into the mouth and advanced through the esophagus and into the stomach. The pylorus was intubated and the duodenum was examined to the 2nd portion. The scope was then withdrawn into the stomach and was retroflexed. The stomach was decompressed and scope was withdrawn slowly through the esophagus. FINDINGS -small hiatal hernia -no gross evidence of Barretts esophagus. Biopsies of GE junction performed with forceps. The patient tolerated the procedure well and will be discharged when they meet criteria. Findings: hiatal hernia Specimen(s): other (GE junction) Post-procedure Recommendations: Reflux diet Plan for aftercare: Continue omeprazole 40 mg twice daily Disposition: same day surgery
== END 2023-11-07 15:57 | disposition home or self-care (01) ==
PROVIDERS: PCP Internal Medicine; Referring Provider Surgery; Visit Provider Surgery
PROC: 0DJ08ZZ Inspection of Upper Intestinal Tract, Via Natural or Artificial Opening Endoscopic (ICD-10-PCS; CPT 43239; principal; 2023-11-07 15:15)
DX: R13.10 Dysphagia, unspecified (principal); K44.9 Diaphragmatic hernia without obstruction or gangrene
CPT/HCPCS: 43239; J2704

== ENCOUNTER → 2024-01-01 07:42 | Outpatient (CLI) | payer OTHER, SELFPAY ==
[2023-07-24 16:00] VITALS: BMI 34.3
--- NOTE | 2024-01-01 08:00 | DI.US.S_ITS ---
PROCEDURE: US PELVIC COMPLETE INDICATIONS: Polycystic lesion of endometrial cavity on MRI TECHNIQUE: Real-time scanning was performed of the pelvic organs, with image documentation. Additional endovaginal scanning was necessary due to incomplete visualization of the adnexal and endometrial structures by transabdominal scanning. COMPARISON: [facility], US, US PELVIC COMPLETE, 09/08/2020, 15:40. FINDINGS: Uterus: Surgically absent Ovaries: Ovaries are not visualized. Other: No pathologic free abdominal or pelvic fluid. Multiple nabothian cysts are visualized. IMPRESSION: Status post hysterectomy. Bilateral ovaries are not visualized. No adnexal masses are visualized. Multiple nabothian cysts. Approved by: Sol Castellano M.D.,Ph.D. on 01/10/2024 at 23:11
== END ==
PROVIDERS: PCP Internal Medicine; Referring Provider Obstetrics & Gynecology; Visit Provider Obstetrics & Gynecology
DX: N88.8 Other specified noninflammatory disorders of cervix uteri (principal); R93.5 Abnormal findings on diagnostic imaging of other abdominal regions, including retroperitoneum; Z90.710 Acquired absence of both cervix and uterus
CPT/HCPCS: 76830; 76856

== ENCOUNTER → 2024-05-13 09:15 | Outpatient (CLI) | payer OTHER, SELFPAY ==
[2023-07-24 16:00] VITALS: BMI 34.3
--- NOTE | 2024-05-13 09:16 | DI.MG.S_ITS ---
BILATERAL DIGITAL DIAGNOSTIC MAMMOGRAM 3D/2D SHORT-TERM FOLLOW-UP: 05/13/2024 CLINICAL: Patient returns for a Short term follow up of the left breast, due for bilateral exam. Comparison is made to exams dated: 04/25/2023 mammogram, 10/12/2022 mammogram, 04/13/2022 mammogram, and 03/16/2022 mammogram - [facility]. There are scattered areas of fibroglandular density (category b / 25%-50% glandular tissue). Redemonstration of previously described cluster of round asymmetries in the left breast middle depth central to the nipple seen on the craniocaudal view only. This is less prominent. No other significant masses, calcifications, or other findings are seen in either breast. IMPRESSION: INCOMPLETE: NEED ADDITIONAL IMAGING EVALUATION The cluster of round asymmetries in the left breast most likely is a cyst or clustered cysts and is indeterminate. An ultrasound is recommended for further evaluation and is scheduled to immediately follow this examination. Based on the Tyrer Cuzick model (a risk assessment model) the patient's lifetime risk is 4.8% and her 10 year risk is 2.1%. According to the ACR, ACS, and NCCN guidelines, an annual breast MRI exam along with mammogram is recommended if the patient's lifetime risk is 20% or greater. This exam was interpreted at Station ID: [id number]. NOTE: For mammograms, a report in lay terms will be sent to the patient. Approximately 15% of breast malignancies will not be visualized mammographically. In the management of a palpable breast mass, a negative mammogram must not discourage biopsy of a clinically suspicious lesion. Electronically Signed By: Dave York M.D. at/:05/13/2024 10:26:32 letter sent: Additional Imaging Needed ACR BI-RADS Category 0: Incomplete: Need Additional Imaging Evaluation
--- NOTE | 2024-05-13 09:16 | DI.US.S_ITS ---
ULTRASOUND OF LEFT BREAST: 05/13/2024 CLINICAL: Patient returns today to evaluate a focal asymmetry in the left breast. Comparison is made to exams dated: 05/13/2024 mammogram, 04/25/2023 ultrasound, 04/25/2023 mammogram, 10/12/2022 ultrasound, 10/12/2022 mammogram, and 04/13/2022 ultrasound - [facility]. Color flow and real-time ultrasound of the left breast were performed. Goldman scale images of the real-time examination were reviewed. Redemonstration of previously described oval cysts in the left breast at 12 o'clock middle depth. This cluster of oval cysts is hypoechoic with no posterior acoustic shadowing or enhancement. These abnormalities are not significantly changed. Color flow imaging demonstrates that there is no vascularity present. IMPRESSION: BENIGN There is no sonographic evidence of malignancy. The cluster of oval cysts in the left breast most likely is a complicated cyst or complicated cysts has demonstrated two years of stability and is consistent with a benign process. A 1 year screening mammogram is recommended. Findings and recommendations were conveyed to the patient during today's evaluation. This exam was interpreted at Station ID: [id number]. Electronically Signed By: Dave York M.D. aty/:05/13/2024 10:50:14 letter sent: Normal Exam ACR BI-RADS Category 2: Benign
== END ==
PROVIDERS: PCP Internal Medicine; Referring Provider Internal Medicine; Visit Provider Internal Medicine
DX: N63.25 Unspecified lump in the left breast, overlapping quadrants (principal); R92.8 Other abnormal and inconclusive findings on diagnostic imaging of breast; N60.02 Solitary cyst of left breast
CPT/HCPCS: 76642; 77066; G0279

== ENCOUNTER → 2024-05-27 08:25 | Outpatient (CLI) | payer OTHER, SELFPAY ==
[2023-07-24 16:00] VITALS: BMI 34.3
--- NOTE | 2024-05-27 08:29 | DI.CT.S_ITS ---
PROCEDURE: CT ABDOMEN PELVIS W CON INDICATIONS: renal cell carcinoma of left kidney TECHNIQUE: After the administration of intravenous contrast, axial sections acquired from the lung bases to the pubic symphysis. Coronal and sagittal reformats were performed. For radiation dose reduction, the following was used: automated exposure control, adjustment of mA and/or kV according to patient size. COMPARISON: [facility], CT, CT ABDOMEN WO/W CON, 03/26/2020, 6:55. [facility], CT, CT ABDOMEN PELVIS W CON, 05/01/2023, 10:18. FINDINGS: Image quality: Diagnostic. Lower Chest: No significant findings. ABDOMEN: Liver: Subtle enhancing focus at the posterior right liver, (2/47), unchanged. Possibly a flash filling hemangioma. Gallbladder: Absent. Biliary ducts: No biliary dilation. Pancreas: No ductal dilation. Spleen: Size is within normal limits. Adrenal Glands: No adrenal nodules. Kidneys and Ureters: No hydronephrosis. No solid mass. No complex renal cystic lesion which requires follow up. Scarring at the left kidney superior pole is unchanged. Stomach and Bowel: Cecum and ascending colon mural enhancement, (3/36), more conspicuous. Possible mural enhancement at the terminal ileum. The appendix is not dilated. Somewhat prominent stool in the rectum. No small bowel obstruction. Stomach is within normal limits. Peritoneum: No abnormal intraperitoneal fluid. No free air. Ventral Wall: No significant ventral hernia. Abdominal Nodes: No retroperitoneal or mesenteric adenopathy by size criteria. Shotty appearing lymph nodes in the right lower quadrant are similar. Vessels: Aorta and inferior vena cava are normal in size. PELVIS: Pelvic Organs: Suspect subtotal hysterectomy. Bladder: No bladder wall thickening, accounting for underdistention. Pelvic Nodes: No enlarged lymph nodes. Miscellaneous: No inguinal hernias are seen. Bones: No aggressive osseous abnormality. IMPRESSION: 1. No solid renal mass. Left partial nephrectomy. 2. Shotty lymph nodes in the right lower quadrant are unchanged. Favor reactive etiology. 3. Suspected inflammatory change at the cecum and ascending colon. Not significantly changed. This could represent underline Crohn's disease or other infectious/inflammatory etiology. -Recommend further evaluation with colonoscopy if not recently performed. Dictated by: Mauricio Lizama M.D. on 05/27/2024 at 13:12 Approved by: Mauricio Lizama M.D. on 05/27/2024 at 13:24
[2024-05-27 09:13] LABS: Estimated Glomerular Filt Rate > 60 mL/min (>60)
--- NOTE | 2024-05-27 09:25 | DI.RAD.S_ITS ---
PROCEDURE: XR CHEST 2V INDICATIONS: RENAL CELL TECHNIQUE: 2 views of the chest were acquired. COMPARISON: [facility], CR, XR CHEST 1V, 05/01/2023, 9:28. FINDINGS: Surgical changes and devices: Lower cervical spine plate and screw instrumentation Lungs and pleura: Lungs are clear. No pleural effusions or pneumothorax. Mediastinum: Mediastinal contours are normal. Heart size is normal. Bones and chest wall: No suspicious bony abnormalities. Soft tissues appear unremarkable. IMPRESSION: No acute cardiopulmonary abnormality is seen. Approved by: Peter Pelaez M.D. on 05/27/2024 at 20:57
== END ==
PROVIDERS: Radiology Diagnostic Radiology; PCP Internal Medicine; Referring Provider Physician Assistant; Visit Provider Physician Assistant
DX: C64.2 Malignant neoplasm of left kidney, except renal pelvis (principal); Z90.5 Acquired absence of kidney; Z90.49 Acquired absence of other specified parts of digestive tract
CPT/HCPCS: 36415; 71046; 74177; 82565; Q9967

== ENCOUNTER → 2024-09-23 08:37 | Outpatient (CLI) | payer OTHER, SELFPAY ==
[2023-07-24 16:00] VITALS: BMI 34.3
[2024-09-23 09:03] LABS: Hemoglobin 12.3 g/dL (12.0-16.0); Mean Corpuscular HGB Conc 33.3 % (30-36); Mean Corpuscular Volume 78.1 fL (80-100); Platelet Count 282 X10^3/uL (150-400); Red Blood Cell Count 4.73 X10^6/uL (4.0-5.2); Red Cell Distribution Width 14.1 % (11.6-14.8); White Blood Cell Count 8.3 X10^3/uL (4.5-11.0)
[2024-09-23 09:27] LABS: Alanine Aminotransferase 21 IU/L (<35); Albumin 4.3 g/dL (3.5-5.0); Albumin Globulin Ratio 1.7 (1.0-2.8); Alkaline Phosphatase 97 U/L (38-126); Aspartate Aminotransferase 20 IU/L (14-36); BUN Creatinine Ratio 15.7 (6-22); Bilirubin Total 0.2 mg/dL (0.2-1.3); Blood Urea Nitrogen 11 mg/dL (7-17); Calcium 9.3 mg/dL (8.4-10.2); Carbon Dioxide 26 mmol/L (22-32); Chloride 99 mmol/L (98-107); Cholesterol 158 mg/dL (140-199); Estimated Glomerular Filt Rate > 60 mL/min (>60); Globulin 2.5 g/dL (1.7-4.1); Glucose 104 mg/dL (70-99); HDL Cholesterol 54 mg/dL (40-60); HEMOLYSIS < 15 (0-50); LDL Cholesterol Calculated 71 mg/dL (<100); Potassium 4.4 mmol/L (3.4-5.1); Sodium 135 mmol/L (137-145); Total Protein 6.8 g/dL (6.3-8.2); Triglycerides 164 mg/dL (35-150)
[2024-09-23 09:45] LABS: Hemoglobin A1C% w Est Avg Glu 5.3 % (4.0-6.0)
[2024-09-23 09:58] LABS: TSH w/ Reflex to FT4 1.44 uIU/mL (0.47-4.68)
== END ==
PROVIDERS: PCP Internal Medicine; Referring Provider Internal Medicine; Visit Provider Internal Medicine
DX: R73.01 Impaired fasting glucose (principal); Z85.528 Personal history of other malignant neoplasm of kidney; E78.2 Mixed hyperlipidemia; E03.9 Hypothyroidism, unspecified
CPT/HCPCS: 36415; 80053; 80061; 83036; 84443; 85027